=== PATIENT | female | born 1965 | race Caucasian/White ===

== ENCOUNTER → 2017-11-10 09:37 | Outpatient (CLI) | payer OTHER, SELFPAY ==
[2017-11-10 12:07] LABS: Glucose, Dipstick Normal (Normal); Ketone-Dipstick Negative (Negative); Leukocyte Esterase-Dipstick Negative /ul (Negative); Nitrite-Dipstick Negative (Negative); Occult Blood-Urine 10 /ul (Negative); Protein-Dipstick Negative (Negative); Urine Bilirubin Dipstick Negative (Negative); Urine Urobilinogen Normal (Normal); Urine pH 6.5 (5.0 - 8.0)
[2017-11-10 12:15] LABS: Color, Urine YELLOW (Yellow); Urine Clarity Clear (Clear)
[2017-11-10 12:19] LABS: Absolute Lymphocyte Count 1.34 X10^3/ul (0.83-4.51); Absolute Neutrophil Count 3.8 X10^3/uL (2.0-7.7); Basophil# 0.01 X10^3/uL; Basophil% 0.2 % (0-1); Eosinophil# 0.08 X10^3/uL; Eosinophils% 1.4 % (0-5); Hematocrit 40.6 % (37-47); Hemoglobin 14.2 g/dl (12.0-15.0); Lymphocyte # 1.34 X10^3/ul (4.0); Lymphocyte % 23.6 % (19-41); Mean Corpuscular Hgb 32.3 pg (27.0-32.0); Mean Corpuscular Volume 92.3 fL (81-99); Mean Platelet Vol. 10.5 fl (6.2-12.0); Monocyte# 0.48 X10^3/uL; Monocyte% 8.5 % (0-10); Neutrophil # 3.76 X10^3/uL (2.7-7.7); Neutrophil % 66.3 % (47-70); Platelet Count 275 K/mm3 (150-450); RBC Distribution Width CV 12.3 % (11.6-14.6); RBC Distribution Width SD 40.9 fl (35.1-43.9); White Blood Count 5.7 K/mm3 (4.4-11.0)
[2017-11-10 12:24] LABS: POSITIVE COUNT NO; POSITIVE DIFFERENTIAL NO; POSITIVE MORPHOLOGY NO
[2017-11-10 12:35] LABS: ALB/GLOB Ratio 1.2 RATIO (0.9-2.4); AST(SGOT) 18 U/L (15-37); Alanine Aminotransfer ALT/SGPT 45 U/L (13-56); Albumin, Serum 4.2 g/dL (3.2-5.0); Alkaline Phosphatase 61 U/L (45-117); Anion Gap 9 (5-15); BUN 13 mg/dL (7-18); BUN/Creat Ratio 13.8 RATIO (10-20); Chloride 104 mmol/L (98-107); Cholesterol 174 mg/dL (200); Creatinine, Serum 0.94 mg/dL (0.55-1.02); EST Glomerular Filtration Rate 66 mL/min (>60); Est Glom Filt Rate - Afr Amer 80 mL/min (>60); Globulin 3.4 g/dL (2.2-4.2); Glucose 88 mg/dL (74-106); High Density Lipoprotein 44 mg/dL; Potassium 3.8 mmol/L (3.5-5.1); Protein, Total 7.6 g/dL (6.4-8.2); Sodium Level 140 mmol/L (136-145); Triglycerides 123 mg/dL; Very Low Density Lipoprotein 25 mg/dL (5-40)
== END ==
PROVIDERS: Family Provider Family Medicine; PCP Family Medicine; Visit Provider Family Medicine
DX: Z00.00 Encounter for general adult medical examination without abnormal findings (principal); I10 Essential (primary) hypertension
CPT/HCPCS: 36415; 80053; 80061; 81002; 85025

== ENCOUNTER → 2018-10-01 11:53 | Outpatient (CLI) | payer OTHER, SELFPAY ==
--- NOTE | 2018-10-01 11:59 | RAD_ITS ---
HISTORY: CHRONIC PAIN, OLD INJURY COMPARISON: None FINDINGS: XR Sacrum/Coccyx 3 Views: No fracture or suspicious bony lesion. The SI joints appear preserved. Pelvic phleboliths. Probable tubal ligation clips. L4-5 degenerative disc disease and spondylosis. RAD/Sacrum-Coccyx min 2 Views IMPRESSION: 1. No fracture or suspicious bony lesion. 2. L4-5 degenerative disc disease and spondylosis. Comment: If there is chronic coccydynia and symptoms warrant, coccygeal pain may benefit from pain management consultation and ganglion impar sympathetic block could be performed. at 0254 Reported and signed by: Roberto Flores MD Electronically Signed: Roberto Flores, at 2:53 EST Tel , Service support ,
--- NOTE | 2018-10-01 11:59 | RAD_ITS ---
STUDY: X-RAY - PELVIS REASON FOR EXAM: Female, 53 years old. Pain TECHNIQUE: One view of the pelvis was obtained. COMPARISON: None. FINDINGS: There is a non-specific bowel gas pattern. Normal visualized soft tissue structures. Normal bilateral iliac wings, sacroiliac joints and visualized sacrum. Normal visualized bilateral superior and inferior pubic rami. Normal pubic symphysis. Normal ischial tuberosities. Normal visualized right femoral head. Normal right acetabulum. Normal right hip joint. Normal visualized left femoral head. Normal left acetabulum. Normal left hip joint. RAD/Pelvis 1 or 2 Views IMPRESSION: Normal x-ray examination of the pelvis. Electronically Signed: Francisco Mcgrath MD at 15:14 EST , Service support ,
== END ==
PROVIDERS: Family Provider Family Medicine; PCP Family Medicine; Referring Provider Anesthesiology Pain Medicine; Visit Provider Anesthesiology Pain Medicine
DX: M89.8X8 Other specified disorders of bone, other site (principal)
CPT/HCPCS: 72170; 72220

== ENCOUNTER 2018-12-15 15:45 | Emergency (ER) | payer OTHER, SELFPAY ==
[2018-12-15 15:45] VITALS: BP 125/83; PULSE 83; RESP 16; TEMP 36.2; O2SAT 99; BMI 24.3
--- NOTE | 2018-12-15 15:57 | CT_ITS ---
STUDY: CT ABDOMEN AND PELVIS WITH CONTRAST REASON FOR EXAM: Female, 53 years old. Right lower quadrant pain, recent UTI RADIATION DOSAGE (If Supplied By Facility): CTDIvol = ( 17.59 ) mGy, DLP = ( 772.76 ) mGycm TECHNIQUE: Transaxial images were obtained from the dome of the diaphragm to the symphysis pubis without oral contrast. 100ML IV Isovue 300 was administered. Sagittal and coronal images were reconstructed. Individualized dose optimization techniques were used for this CT. COMPARISON: None. FINDINGS: The visualized lung bases are unremarkable. The visualized portions of the heart are within normal limits. Normal liver. There are surgical clips in the gallbladder fossa consistent with a prior cholecystectomy. There is dilatation of the CBD measuring up to 9 mm. Normal spleen. Normal pancreas. Normal bilateral adrenal glands. Normal right kidney. Normal left kidney. There is wall thickening of the distal gastric body/antrum. There is wall thickening with mild dilatation of several loops of proximal jejunum. There is a large colonic stool burden. There is a tiny amount of free fluid in the right paracolic gutter. The appendix is visualized and appears normal. There are calcified plaques of the abdominal aorta. Normal inferior vena cava. Normal retroperitoneum. Normal urinary bladder. The uterus is bulky in size and heterogeneous in density. There is a small amount of free fluid in the deep pelvis. There is a small umbilical hernia containing fat. There is mild narrowing of the L4-5 disc space with sclerosis of the adjacent vertebral bodies. CT/Abdomen/Pelvis W IV Cont ONLY IMPRESSION: 1. Status post cholecystectomy. Dilatation of the CBD measuring up to 9 mm. 2. There is wall thickening of the distal gastric body/antrum as well as wall thickening and dilatation of several loops of proximal jejunum. Findings may represent gastritis/enteritis. 3. There is a small amount of free fluid in the right paracolic gutter and deep pelvis. 4. The uterus is bulky in size and heterogeneous in density. This may be associated with leiomyomatous disease. 5. Small fat-containing umbilical hernia. Mild narrowing of the L4-5 disc space with sclerosis of the adjacent vertebral bodies. Findings are suggestive of discogenic vertebral sclerosis. Electronically Signed: Ok Acevedo MD at 18:22 EDT , Service support ,
--- NOTE | 2018-12-15 16:01 | ED.VISSUMM ---
- ER Visit Summary Date of Service: 12/15/18 Chief Complaint: Abdominal pain History of Present Illness: The patient is a 53 F recently treated for a UTI currently on Cipro. Today she was in the urologist office being seen by the nurse practitioner they felt she had right lower quadrant abdominal pain and center the ER for further evaluation. She denies fever. She has had nausea. She states that the lower abdominal pain started last evening. She denies any vomiting, diarrhea, dysuria or melena. She denies any fever. She denies any abdominal trauma. She has had a prior cholecystectomy and tubal ligation. She denies any vaginal bleeding. Physical Examination: Middle-aged female no acute distress. Vital signs are stable. She is afebrile. She does not look septic or toxic. She is in no acute distress. HEENT exam unremarkable. Neck nontender no lymphadenopathy. Lungs clear to auscultation bilaterally. Heart regular rhythm no murmur. Abdomen soft. Nondistended. Normal bowel sounds no peritoneal signs. Mild tenderness both the left and right lower quadrants. No hernias or masses. No signs of obstruction. No pulsatile mass. She is tender on the right it is very mild is not specifically McBurney's point. Patient is moving all 4 extremities. Back is nontender. Neurologically she is awake and alert. Test Results: Normal. White count of 9. Normal hemoglobin. Chemistries normal normal creatinine and gap. Liver enzymes normal. Lipase normal. CT abdomen and pelvis with IV contrast only shows inflammation of the stomach and areas of the small bowel consistent with gastritis and enteritis. The appendix is seen and is normal. Emergency Department Course and Treatment: Middle-aged female with nonspecific diffuse abdominal pain. Given Zofran for her nausea. Repeat exam patient is doing well. She will be placed on Protonix. And outpatient follow-up. Treatment Plan: Protonix Disposition: Discharge Impression: Acute abdominal pain secondary to gastritis and enteritis This note was generated with [employer] dictation software. It may contain incorrect words, spelling, and punctuation that were not noted in review of the chart prior to signing ED Disposition - Plan for ED Patient: Referrals: Hood Aragon MD [Primary Care Provider] -
[2018-12-15 16:02] VITALS: BP 142/91; PULSE 79; RESP 16; O2SAT 98
--- NOTE | 2018-12-15 16:05 | ED.DCSUM_ITS ---
- ER Visit Summary Date of Service: 12/15/18 Chief Complaint: Abdominal pain History of Present Illness: The patient is a 53 F recently treated for a UTI currently on Cipro. Today she was in the urologist office being seen by the nurse practitioner they felt she had right lower quadrant abdominal pain and center the ER for further evaluation. She denies fever. She has had nausea. She states that the lower abdominal pain started last evening. She denies any vomiting, diarrhea, dysuria or melena. She denies any fever. She denies any abdominal trauma. She has had a prior cholecystectomy and tubal ligation. She denies any vaginal bleeding. Physical Examination: Middle-aged female no acute distress. Vital signs are stable. She is afebrile. She does not look septic or toxic. She is in no acute distress. HEENT exam unremarkable. Neck nontender no lymphadenopathy. L ungs clear to auscultation bilaterally. Heart regular rhythm no murmur. Abdomen soft. Nondistended. Normal bowel sounds no peritoneal signs. Mild tenderness both the left and right lower quadrants. No hernias or masses. No signs of obstruction. No pulsatile mass. She is tender on the right it is very mild is not specifically McBurney's point. Patient is moving all 4 extremities. Back is nontender. Neurologically she is awake and alert. Test Results: Normal. White count of 9. Normal hemoglobin. Chemistries normal normal creatinine and gap. Liver enzymes normal. Lipase normal. CT abdomen and pelvis with IV contrast only shows inflammation of the stomach and areas of the small bowel consistent with gastritis and enteritis. The appendix is seen and is normal. Emergency Department Course and Treatment: Middle-aged female with nonspecific diffuse abdominal pain. Given Zofran for her nausea. Repeat exam patient is doing well. She will be placed on Protonix. And outpatient follow-up. Treatment Plan: Protonix Disposition: Discharge Impression: Acute abdominal pain secondary to gastritis and enteritis This note was generated with [employer] dictation software. It may contain incorrect words, spelling, and punctuation that were not noted in review of the chart prior to signing ED Disposition - Plan for ED Patient: Referrals: Hood Aragon MD [Primary Care Provider] -
[2018-12-15] MEDS: Ondansetron 4 MG/2 ML Vial IV (16:13)
[2018-12-15 16:30] LABS: Absolute Lymphocyte Count 2.04 X10^3/ul (0.83-4.51); Absolute Neutrophil Count 6.9 X10^3/uL (2.0-7.7); Basophil# 0.02 X10^3/uL; Basophil% 0.2 % (0-1); Eosinophil# 0.04 X10^3/uL; Eosinophils% 0.4 % (0-5); Hematocrit 41.2 % (37-47); Lymphocyte # 2.04 X10^3/ul (4.0); Lymphocyte % 21.4 % (19-41); Mean Corpuscular Hgb 30.9 pg (27.0-32.0); Mean Corpuscular Volume 90.9 fL (81-99); Mean Platelet Vol. 9.8 fl (6.2-12.0); Monocyte# 0.48 X10^3/uL; Neutrophil # 6.93 X10^3/uL (2.7-7.7); Neutrophil % 72.9 % (47-70); Platelet Count 265 K/mm3 (150-450); RBC Distribution Width CV 13.8 % (11.6-14.6); RBC Distribution Width SD 45.2 fl (35.1-43.9); Red Blood Count 4.53 M/mm3 (4.2-5.4); White Blood Count 9.5 K/mm3 (4.4-11.0)
[2018-12-15 16:32] LABS: POSITIVE COUNT NO; POSITIVE DIFFERENTIAL NO; POSITIVE MORPHOLOGY NO
[2018-12-15 16:56] LABS: AST(SGOT) 16 U/L (15-37); Alanine Aminotransfer ALT/SGPT 21 U/L (13-56); Albumin, Serum 4.2 g/dL (3.2-5.0); Alkaline Phosphatase 51 U/L (45-117); Anion Gap 7 (5-15); BUN 13 mg/dL (7-18); BUN/Creat Ratio 13.3 RATIO (10-20); Bilirubin, Direct 0.09 mg/dL (0.00-0.30); Calcium,Total 8.9 mg/dL (8.5-10.1); Chloride 100 mmol/L (98-107); Creatinine, Serum 0.98 mg/dL (0.55-1.02); EST Glomerular Filtration Rate 63 mL/min (>60); Est Glom Filt Rate - Afr Amer 76 mL/min (>60); Estimated Creatinine Clearance 54.92 ml/min; Globulin 2.8 g/dL (2.2-4.2); Glucose 96 mg/dL (74-106); Lipase 90 U/L (73-393); Potassium 3.5 mmol/L (3.5-5.1); Sodium Level 136 mmol/L (136-145)
[2018-12-15] MEDS: Ketorolac 30 MG/ML Syringe IV (17:17)
[2018-12-15 17:28] LABS: Bacteria 0 SEEN /hpf (None Seen); Mucous, Urine 0 SEEN /hpf (<or=2+); Red Blood Cells-Urine 0 SEEN /hpf (0-5); White Blood Cells 0 SEEN /hpf (0-5)
[2018-12-15 17:34] LABS: Color, Urine Yellow (Yellow); Glucose, Dipstick Normal (Normal); Ketone-Dipstick Negative (Negative); Leukocyte Esterase-Dipstick Negative /ul (Negative); Nitrite-Dipstick Negative (Negative); Occult Blood-Urine Negative /ul (Negative); Protein-Dipstick Negative (Negative); Urine Bilirubin Dipstick Negative (Negative); Urine Clarity Clear (Clear); Urine Urobilinogen Normal (Normal)
[2018-12-15 17:40] LABS: Squamous Epithelial Cells - UA 0-5 SEEN /hpf (5-10)
[2018-12-15 18:08] VITALS: BP 124/84; PULSE 72; RESP 16; O2SAT 97
--- NOTE | 2018-12-15 18:36 | ED.DEP ---
ED Disposition - Plan for ED Patient: Disposition: Home or Assisted Living Instructions: ED Gastritis Prescriptions: Ondansetron [Zofran Odt] 4 mg PO Q8H PRN PRN #14 tab PRN Reason: Nausea Pantoprazole Sodium [Protonix] 20 mg PO DAILY #30 tablet Pantoprazole Sodium [Protonix] 20 mg PO DAILY #30 tab Referrals: Hood Aragon MD [Primary Care Provider] - 1 Week if not improving Additional Instructions: Her labs today were normal. Your CAT scan showed some mild inflammation of the stomach and small bowel consistent with a gastritis and enteritis. He will be placed on Protonix for the gastritis. This should progressively improve. Follow-up with your doctor if not improving.
--- NOTE | 2018-12-15 18:50 | ED.RN ---
IV DC'ED, CATHETER INTACT, SMALL GAUZE DRESSING PLACED. DISCHARGE INSTRUCTIONS GIVEN TO AND REVIEWED WITH PATIENT, PATIENT DENIES QUESTIONS OR CONCERNS AND VOICES UNDERSTANDING OF DISCHARGE INSTRUCTIONS. PT AMBULATES OUT OF ROOM WITHOUT DIFFICULTY.
== END 2018-12-15 18:50 | disposition home or self-care (01) ==
PROVIDERS: Emergency Provider Emergency Medicine; Family Provider Family Medicine; PCP Family Medicine
DX: K29.00 Acute gastritis without bleeding (principal); K52.9 Noninfective gastroenteritis and colitis, unspecified
CPT/HCPCS: 74177; 80048; 80076; 81001; 83690; 85025; 96374; 96375; 99283; Q9967; A4216; J2405

== ENCOUNTER → 2019-02-11 | Outpatient (CLI) | payer OTHER, SELFPAY ==
[2019-02-11 12:20] LABS: Color, Urine Yellow (Yellow); Glucose, Dipstick Normal (Normal); Ketone-Dipstick Negative (Negative); Leukocyte Esterase-Dipstick Negative /ul (Negative); Nitrite-Dipstick Negative (Negative); Occult Blood-Urine 250 /ul (Negative); Protein-Dipstick Negative (Negative); Urine Bilirubin Dipstick Negative (Negative); Urine Clarity Clear (Clear); Urine Urobilinogen Normal (Normal)
[2019-02-11 12:25] LABS: Absolute Lymphocyte Count 0.95 X10^3/ul (0.83-4.51); Absolute Neutrophil Count 2.6 X10^3/uL (2.0-7.7); Basophil# 0.01 X10^3/uL; Basophil% 0.3 % (0-1); Eosinophil# 0.08 X10^3/uL; Hematocrit 38.8 % (37-47); Hemoglobin 13.4 g/dl (12.0-15.0); Lymphocyte # 0.95 X10^3/ul (4.0); Mean Corp Hgb Conc 34.5 g/gl (32-36); Mean Corpuscular Hgb 30.5 pg (27.0-32.0); Mean Corpuscular Volume 88.4 fL (81-99); Mean Platelet Vol. 11.2 fl (6.2-12.0); Monocyte# 0.35 X10^3/uL; Monocyte% 8.8 % (0-10); Neutrophil # 2.57 X10^3/uL (2.7-7.7); Neutrophil % 64.9 % (47-70); Platelet Count 269 K/mm3 (150-450); RBC Distribution Width CV 12.2 % (11.6-14.6); RBC Distribution Width SD 38.6 fl (35.1-43.9); Red Blood Count 4.39 M/mm3 (4.2-5.4)
[2019-02-11 12:32] LABS: ALB/GLOB Ratio 1.3 RATIO (0.9-2.4); AST(SGOT) 17 U/L (15-37); Alanine Aminotransfer ALT/SGPT 25 U/L (13-56); Albumin, Serum 4.1 g/dL (3.2-5.0); Alkaline Phosphatase 53 U/L (45-117); Anion Gap 7 (5-15); BUN 15 mg/dL (7-18); BUN/Creat Ratio 16.3 RATIO (10-20); Calcium,Total 9.1 mg/dL (8.5-10.1); Chloride 102 mmol/L (98-107); Cholesterol 182 mg/dL (200); Creatinine, Serum 0.92 mg/dL (0.55-1.02); EST Glomerular Filtration Rate 68 mL/min (>60); Est Glom Filt Rate - Afr Amer 82 mL/min (>60); Globulin 3.1 g/dL (2.2-4.2); Glucose 91 mg/dL (74-106); High Density Lipoprotein 66 mg/dL; Potassium 3.8 mmol/L (3.5-5.1); Protein, Total 7.2 g/dL (6.4-8.2); Sodium Level 137 mmol/L (136-145); Triglycerides 53 mg/dL; Very Low Density Lipoprotein 11 mg/dL (5-40)
[2019-02-11 12:36] LABS: POSITIVE COUNT NO; POSITIVE DIFFERENTIAL NO; POSITIVE MORPHOLOGY NO
== END | disposition home or self-care (01) ==
LOC: MTLAB 10:22
PROVIDERS: Family Provider Family Medicine; PCP Family Medicine; Referring Provider Family Medicine; Visit Provider Family Medicine
DX: Z00.00 Encounter for general adult medical examination without abnormal findings (principal); I10 Essential (primary) hypertension
CPT/HCPCS: 36415; 80053; 80061; 81002; 85025

== ENCOUNTER 2019-08-09 12:36 | Emergency (ER) | payer OTHER, SELFPAY ==
[2019-08-09 12:38] VITALS: BP 137/97; PULSE 98; RESP 14; TEMP 36.4; O2SAT 100; BMI 24.7
--- NOTE | 2019-08-09 13:19 | US_ITS ---
STUDY: ULTRASOUND OF THE FEMALE PELVIS - COMPLETE REASON FOR EXAM: Female, 54 years old. Vaginal bleeding. LMP: The patient is postmenopausal. TECHNIQUE: Transvaginal TECHNICAL QUALITY: Adequate. COMPARISON: None. FINDINGS: The uterus is anteverted and is in a midline position. The uterus is enlarged and measures 10.17 x 6.6 x 6.0 cm. There is a Nabothian cyst of the cervix. The endometrium is thickened and measures 8.0 mm in thickness, and is hyperechoic. There is no demonstrated endometrial mass. Fibroid uterus. I.U.D. - The patient does not have an I.U.D. The right ovary is visualized. The right ovary measures 3.3 cm x 2.0 cm x 1.6 cm. There is no right ovarian cyst or ovarian mass. There is no visualized right adnexal mass or complex lesion. There is normal arterial and normal venous vascularity. The left ovary is visualized. The left ovary measures 4.2 cm x 2 cm x 1.8 cm. There is a 2.2 cm x 1.5 cm x 0.8 cm right ovarian cyst. There is no visualized left adnexal mass or complex lesion. There is normal arterial and normal venous vascularity. There is minimal fluid in the cul-de-sac. US/Transvaginal Non- IMPRESSION: Enlarged fibroid uterus with thickened endometrium. 2.2 cm x 1.5 cm x 0.8 cm left ovarian cyst. Electronically Signed: Alexis Sullivan, at 15:32 EST , Service support ,
[2019-08-09] MEDS: Morphine 4 MG/ML Syringe IV (13:48)
[2019-08-09] MEDS: 0.9% Normal Saline 1,000 ML 150 ML IV (13:49)
[2019-08-09] MEDS: Ondansetron 4 MG/2 ML Vial IV (13:49)
[2019-08-09 14:12] LABS: Absolute Lymphocyte Count 1.35 X10^3/uL (0.83-4.51); Absolute Neutrophil Count 4.9 X10^3/uL (2.0-7.7); Eosinophil# 0.07 X10^3/uL; Hematocrit 36.7 % (37-47); Hemoglobin 12.4 g/dL (12.0-15.0); Lymphocyte # 1.35 X10^3/ul (4.0); Lymphocyte % 19.9 % (19-41); Mean Corp Hgb Conc 33.8 g/dL (32-36); Mean Corpuscular Hgb 30.4 pg (27.0-32.0); Mean Platelet Vol. 9.8 fl (6.2-12.0); Monocyte# 0.44 X10^3/uL; Monocyte% 6.5 % (0-10); NRBC Flagged by Analyzer 0 % (0-5); Neutrophil # 4.92 X10^3/uL (2.7-7.7); Neutrophil % 72.3 % (47-70); Platelet Count 212 K/mm3 (150-450); RBC Distribution Width CV 14.1 % (11.6-14.6); Red Blood Count 4.08 M/mm3 (4.2-5.4); White Blood Count 6.8 K/mm3 (4.4-11.0)
[2019-08-09 14:15] LABS: Internal QC Validated? YES +Cl - CLEAR BKGD; Pregnancy, Serum, hCG Quali. NEGATIVE Negative
[2019-08-09 15:12] VITALS: BP 132/78; PULSE 70; RESP 16; O2SAT 98
--- NOTE | 2019-08-09 15:49 | ED.VIS.GEN ---
History of Present Illness Chief Complaint: Vag Bleeding Detail of Chief Complaint: Vaginal bleeding and left lower quadrant pain Informant: Patient Onset: Yesterday Current Severity: Moderate Maximum Severity: Moderate Narrative: Patient presents with vaginal bleeding and left lower quadrant pain. Patient states that she thinks she is going through menopause. Her last menstrual cycle was June 24. She started bleeding again yesterday. She noted more cramping than normal and worse pain in the left lower quadrant. She is a history of chronic back pain and takes [place] Feria. She took these yesterday and just laid on the couch. Today she did take her meds and went to work, but due to increased pain came to the emergency room. She does not feel lightheaded or dizzy. She states that she was changing her tampon every 1-2 hours. She is not passing large clots. - Past Medical History (1) Back pain Status: Acute Past Medical History - Allergies and Home Meds Allergies/Adverse Reactions: Allergies No Known Allergies Allergy (Verified 08/09/19 12:37) Primary Care Physician: Hood Aragon MD [Primary Care Provider] - Prior records reviewed: Yes Surgical History: cholecystectomy, - - Tubal ligation Lives: Spouse/ Significant Other Smoking Status: Never smoker Review of Systems General: Denies: Chills, Fever Eyes: Denies: Visual changes - bilaterally ENT: Denies: Bilateral ear pain Cardiovascular: Denies: Chest pain Respiratory: Denies: Dyspnea, Cough Gastrointestinal: Reports: Abdominal pain. Denies: Nausea, Vomiting, Diarrhea Genitourinary: Denies: Dysuria Musculoskeletal: Denies: Extremity Pain Skin: Denies: Rash Neurological: Denies: Headache Hematologic: Denies: Easy bruising Allergy: Denies: Uticaria Physical Exam Vital Signs/Narrative: Vital Signs Temp Pulse Resp BP Pulse Ox 08/09/19 15:12 70 16 132/78 H 98 08/09/19 12:38 97.6 F L 98 14 137/97 H 100 Inital Vital Signs reviewed: Yes General: Well nourished, Well developed Head: Normocephalic ENT: Moist mucous membranes Neck: Supple Cardiovascular: Regular rate, Regular rhythm Respiratory: No distress, CTA bilaterally Abdomen: Soft, Normal bowel sounds, Tender - Mild tenderness to the left lower quadrant.. Negative for: Guarding, Rebound tenderness Extremities: Nontender Skin: Normal color, No rash Neurological: Alert, Oriented x3 Psychological: Normal affect Diagnostic/Tx/Re-eval Impressions Transvaginal US 08/09/19 13:19 IMPRESSION: Enlarged fibroid uterus with thickened endometrium. 2.2 cm x 1.5 cm x 0.8 cm left ovarian cyst. Electronically Signed: Alexis Sullivan, at 15:32 EST , Service support , 08/09/19 13:19 Transvaginal Non- [US] Stat Laboratory Results 08/09/19 08/09/19 14:00 14:00 WBC 6.8 RBC 4.08 L Hgb 12.4 Hct 36.7 L MCV 90.0 MCH 30.4 MCHC 33.8 RDW Std Deviation 47.0 H RDW Coeff of Raulito 14.1 Plt Count 212 MPV 9.8 Immature Gran % (Auto) 0.300 Neut % (Auto) 72.3 H Lymph % (Auto) 19.9 [place] % (Auto) 6.5 Eos % (Auto) 1.0 Baso % (Auto) 0.0 Absolute Neuts (auto) 4.9 Absolute Lymphs (auto) 1.35 Nucleated RBC % 0 Serum , Qual NEGATIVE - Medical Decision Making Patient was given morphine and Zofran here for pain. Test results are discussed with patient and family at bedside. She is currently in pain management and is only allowed to take 2 [place] Feria per day. I spoke with nurse practitioner for her pain management doctor. They are okay with me writing her a short course of La Feria for her acute condition. She is given a prescription for La Feria and will follow up with her [employer], Dr. Kate. ED Disposition - Plan for ED Patient: Disposition: Home or Assisted Living Diagnosis: Ovarian cyst Instructions: Ovarian Cyst Prescriptions: Hydrocodone Bitart/Apap 5-325 [La Feria 5MG-325MG] 1 tab PO Q6H PRN PRN 3 Days #10 tab PRN Reason: Pain Transmission Status: Received by [facility] Referrals: Hood Aragon MD [Primary Care Provider] - Additional Instructions: Follow-up with Dr Kate
[2019-08-09 16:03] VITALS: BP 125/91; PULSE 65; RESP 18; O2SAT 99
== END 2019-08-09 16:04 | disposition home or self-care (01) ==
PROVIDERS: Emergency Provider Emergency Medicine; Family Provider Family Medicine; PCP Family Medicine
DX: N83.202 Unspecified ovarian cyst, left side (principal); D25.9 Leiomyoma of uterus, unspecified; M54.9 Dorsalgia, unspecified; G89.29 Other chronic pain
CPT/HCPCS: 76830; 84703; 85025; 96361; 96374; 96375; 99283; J2405

== ENCOUNTER 2020-03-11 16:09 | Emergency (ER) | payer OTHER, SELFPAY ==
[2020-03-11 16:10] VITALS: BP 171/114; PULSE 69; RESP 20; TEMP 36.1; O2SAT 100; BMI 26.2
--- NOTE | 2020-03-11 16:20 | ED.DCSUM_ITS ---
History of Present Illness Chief Complaint: Allergic Reaction Narrative: 55-year-old female presents with concern for allergic reaction. States that 2 nights ago she went to [facility] and had a Maykel spice. States following her dinner she had some hives. States that she ate the same meal last night as leftovers and woke up this morning with swelling to her face as well as throat. States that she feels like it is more superficial and does have any issue with swallowing or breathing. Denies any shortness of breath or cough. States that she was seen at urgent care this morning and started on Benadryl and steroids. States that the swelling has worsened since that time. Denies any previous significant history of food allergies. Past Medical History - Allergies and Home Meds Allergies/Adverse Reactions: Allergies No Known Allergies Allergy (Verified 03/11/20 16:14) Primary Care Physician: Hood Aragon MD [Primary Care Provider] - Prior records reviewed: Yes Past Medical History: None Surgical History: cholecystectomy, - - Tubal ligation Lives: Spouse/ Significant Other Smoking Status: Never smoker Alcohol: None Drugs: None Review of Systems General: Denies: Chills, Fever, Sweats Eyes: Denies: Visual changes - bilaterally, Diplopia ENT: Denies: Rhinorrhea, Sore throat - facial swelling Cardiovascular: Denies: Chest pain, Palpitations Respiratory: Denies: Dyspnea, Cough, Dyspnea on exertion Gastrointestinal: Denies: Abdominal pain, Nausea, Vomiting, Diarrhea, Melena, Hematochezia Genitourinary: Denies: Dysuria, Hematuria, Frequency Musculoskeletal: Denies: Back pain, Extremity Pain Skin: Denies: Rash, Wounds Neurological: Denies: Headache, Weakness, Numbness Physical Exam Vital Signs/Narrative: Vital Signs Temp Pulse Resp BP Pulse Ox 03/11/20 16:10 97 F L 69 20 H 171/114 H 100 Inital Vital Signs reviewed: Yes General: Well nourished, Well developed, No Acute Distress Head: Normocephalic, Atraumatic Eyes: Perrl, EOMI ENT: Moist mucous membranes, No rhinorrhea, - - Mild facial swelling to the cheeks and lips. No posterior pharyngeal swelling. Neck: Supple, Nontender Cardiovascular: Regular rate, Regular rhythm, No murmurs Respiratory: No distress, CTA bilaterally, Chest nontender Abdomen: Soft, Nontender, Nondistended, Normal bowel sounds Back: Nontender, Normal Inspection Extremities: Nontender, No edema Skin: Normal color, No rash Neurological: Alert, Oriented x3, Cranial nerves II-XII grossly intact, Normal Strength, Normal Sensation Psychological: Normal affect, Normal Mood Diagnostic/Tx/Re-eval - Medical Decision Making Appears well nontoxic. Very mild facial swelling. No posterior pharyngeal or intraoral swelling. Mild rash to the bilateral cheeks. Lungs clear. Patient was given 125 Solu-Medrol, 20 mg of IV Pepcid, and 25 mg of Benadryl. After observation for 2 hours patient does have improvement of her swelling. She will be advised to continue Benadryl as well as the Medrol Dosepak at home. Asked to return for any shortness of breath or throat swelling. Given prescription for epipen. Patient agreeable and discharged home in stable condition. ED Disposition - Plan for ED Patient: Disposition: [facility] or Unit Diagnosis: Allergic reaction Instructions: ED General Allergic Reactions Prescriptions: Epinephrine [Epipen] 0.3 mg IJ PRN PRN #2 auto.injct PRN Reason: Anaphylaxis Transmission Status: Pending to [facility] Referrals: Hood Aragon MD [Primary Care Provider] -
[2020-03-11] MEDS: MethylPREDNISolone 125 MG/2 ML Vial IV (16:32)
[2020-03-11] MEDS: Famotidine 200 MG/20 ML MDV 20 MG in 0.9% Normal Saline (Pres. free 8 ML 300 MG IV (16:33)
[2020-03-11] MEDS: DiphenhydrAMINE 50 MG/ML Syringe 25 MG IV (16:35)
[2020-03-11] MEDS: 0.9% Normal Saline 1,000 ML 999 ML IV (16:39)
[2020-03-11 16:40] VITALS: PULSE 98; RESP 16; O2SAT 97
[2020-03-11 19:10] VITALS: BP 168/78; PULSE 88; RESP 16; O2SAT 98
== END 2020-03-11 19:11 | disposition home or self-care (01) ==
PROVIDERS: Emergency Provider Emergency Medicine; PCP Family Medicine
DX: T78.1XXA Other adverse food reactions, not elsewhere classified, initial encounter (principal); X58.XXXA Exposure to other specified factors, initial encounter; R22.0 Localized swelling, mass and lump, head; Z79.899 Other long term (current) drug therapy; Z90.49 Acquired absence of other specified parts of digestive tract
CPT/HCPCS: 96361; 96374; 96375; 99283; J7030; A4216; J3490

== ENCOUNTER → 2020-03-22 10:57 | Outpatient (CLI) | payer OTHER, SELFPAY ==
[2020-03-11 16:10] VITALS: BMI 26.2
[2020-03-22 13:03] LABS: Color, Urine Yellow (Yellow); Glucose, Dipstick Normal (Normal); Ketone-Dipstick Negative (Negative); Leukocyte Esterase-Dipstick Negative /ul (Negative); Nitrite-Dipstick Negative (Negative); Occult Blood-Urine Negative /ul (Negative); Protein-Dipstick Negative (Negative); Specific Gravity, Urine 1.005 (1.002-1.030); Urine Bilirubin Dipstick Negative (Negative); Urine Clarity Sl. Cloudy (Clear); Urine Urobilinogen Normal (Normal); Urine pH 6.5 (5.0 - 8.0)
[2020-03-22 13:11] LABS: Absolute Lymphocyte Count 2.87 X10^3/uL (0.83-4.51); Absolute Neutrophil Count 5.7 X10^3/uL (2.0-7.7); Basophil# 0.03 X10^3/uL; Basophil% 0.3 % (0-1); Eosinophil# 0.04 X10^3/uL; Eosinophils% 0.4 % (0-5); Hematocrit 36.7 % (37-47); Hemoglobin 11.6 g/dL (12.0-15.0); Lymphocyte # 2.87 X10^3/ul (4.0); Lymphocyte % 30.2 % (19-41); Mean Corp Hgb Conc 31.6 g/dL (32-36); Mean Corpuscular Hgb 28.6 pg (27.0-32.0); Mean Corpuscular Volume 90.4 fL (81-99); Mean Platelet Vol. 9.9 fl (6.2-12.0); Monocyte# 0.88 X10^3/uL; Monocyte% 9.3 % (0-10); NRBC Flagged by Analyzer 0 % (0-5); Neutrophil # 5.65 X10^3/uL (2.7-7.7); Neutrophil % 59.4 % (47-70); Platelet Count 300 K/mm3 (150-450); RBC Distribution Width CV 13.3 % (11.6-14.6); RBC Distribution Width SD 43.4 fl (35.1-43.9); Red Blood Count 4.06 M/mm3 (4.2-5.4); White Blood Count 9.5 K/mm3 (4.4-11.0)
[2020-03-22 13:53] LABS: ALB/GLOB Ratio 1.3 RATIO (0.9-2.4); AST(SGOT) 8 U/L (15-37); Alanine Aminotransfer ALT/SGPT 18 U/L (13-56); Alkaline Phosphatase 40 U/L (45-117); Anion Gap 8 (5-15); BUN 13 mg/dL (7-18); BUN/Creat Ratio 14.3 RATIO (10-20); Calcium,Total 8.9 mg/dL (8.5-10.1); Chloride 99 mmol/L (98-107); Cholesterol 188 mg/dL (200); Creatinine, Serum 0.91 mg/dL (0.55-1.02); EST Glomerular Filtration Rate 68 mL/min (>60); Est Glom Filt Rate - Afr Amer 82 mL/min (>60); Glucose 88 mg/dL (74-106); High Density Lipoprotein 81 mg/dL; Potassium 3.8 mmol/L (3.5-5.1); Sodium Level 135 mmol/L (136-145); Triglycerides 91 mg/dL
[2020-03-22 13:54] LABS: Very Low Density Lipoprotein 18 mg/dL (5-40)
== END ==
PROVIDERS: PCP Family Medicine; Referring Provider Family Medicine; Visit Provider Family Medicine
DX: Z00.00 Encounter for general adult medical examination without abnormal findings (principal); I10 Essential (primary) hypertension
CPT/HCPCS: 36415; 80053; 80061; 81002; 85025

== ENCOUNTER → 2020-10-30 15:34 | Outpatient (CLI) | payer OTHER, SELFPAY ==
--- NOTE | 2020-10-30 15:39 | MRI_ITS ---
STUDY: MRI LUMBAR SPINE WITH AND WITHOUT CONTRAST REASON FOR EXAM: Female, 55 years old. POST LAMI SYNDROME, RADICULOPATHY, SPONDYLOSIS -- prev lumbar surgery 2006, recent left lumbar ablation TECHNIQUE: Standardized fat and water weighted pulse sequences were obtained in the sagittal and axial planes. IV dotarem 13ml was administered for the contrast portion of the examination. COMPARISON: Lumbar spine x-rays 09/12/2016 FINDINGS: T12-L1: Normal endplates. Normal disc height, hydration and morphology. Normal bilateral facet joints. Normal central canal and bilateral lateral recesses. Normal bilateral intervertebral neural foramina. Normal lumbar lordosis. There is no substantial scoliosis. Normal conus medullaris that terminates at T12-L1 L1-2: Normal endplates. Normal disc height, hydration and morphology. Normal bilateral facet joints. Normal central canal and bilateral lateral recesses. Normal bilateral intervertebral neural foramina. L2-3: Normal endplates. Normal disc height, hydration and minimal annular bulge. Normal bilateral facet joints. Normal central canal and bilateral lateral recesses. Normal bilateral intervertebral neural foramina. L3-4: Normal endplates. Normal disc height, hydration and morphology. Normal bilateral facet joints. Normal central canal and bilateral lateral recesses. Normal bilateral intervertebral neural foramina. L4-5: Normal endplates. Normal disc height, desiccation and minor annular bulge.. Mild facet arthropathy and thickening of ligamenta flava greater on the right. Normal central canal and bilateral lateral recesses. Mild left neuroforaminal stenosis and moderate stenosis on the right.. L5-S1: Normal endplates. Normal disc height, desiccation and minor annular bulge with tiny central disc protrusion. Minor facet arthropathy.. Normal central canal and bilateral lateral recesses. Normal bilateral intervertebral neural foramina. Normal visualized sacral ala. Normal visualized paraspinous soft tissue structures. No abnormal enhancement following gadolinium administration. MRI/Spine Lumbar W/WO Contrast IMPRESSION: Spinal stenosis at L4-5 slightly greater on the right due to minor bulging the annulus facet arthropathy and thickening of ligamenta flava more severe on the right Minor annular bulge at L5-S1 with tiny central disc protrusion and facet arthropathy but no significant spinal stenosis Electronically Signed: Everardo Yi MD at 17:17 EST , Service support ,
== END ==
PROVIDERS: PCP Family Medicine; Referring Provider Nurse Practitioner Family; Visit Provider Nurse Practitioner Family
DX: M46.96 Unspecified inflammatory spondylopathy, lumbar region (principal); M53.3 Sacrococcygeal disorders, not elsewhere classified; M51.37 Other intervertebral disc degeneration, lumbosacral region; M96.1 Postlaminectomy syndrome, not elsewhere classified; M47.27 Other spondylosis with radiculopathy, lumbosacral region
CPT/HCPCS: 72158; A9575

== ENCOUNTER 2021-04-12 11:53 | Emergency (ER) | payer OTHER, SELFPAY ==
[2021-04-12 11:54] VITALS: BP 167/100; PULSE 81; RESP 16; TEMP 36.6; O2SAT 100; BMI 25.5
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
[2021-04-12] MEDS: morphine 10 MG/ML Syringe IM (12:24)
[2021-04-12] MEDS: Ondansetron ODT 4 MG Tablet PO (12:24)
[2021-04-12 12:37] VITALS: BP 138/74; PULSE 62; RESP 15; O2SAT 98
== END 2021-04-12 12:38 | disposition home or self-care (01) ==
LOC: ED 12:35
PROVIDERS: Emergency Provider Emergency Medicine; PCP Family Medicine
DX: M54.9 Dorsalgia, unspecified (principal); G89.29 Other chronic pain; R20.0 Anesthesia of skin; M51.36 Other intervertebral disc degeneration, lumbar region; I10 Essential (primary) hypertension; Z79.1 Long term (current) use of non-steroidal anti-inflammatories (NSAID); Z79.52 Long term (current) use of systemic steroids; Z79.899 Other long term (current) drug therapy
CPT/HCPCS: 96372; 99283

== ENCOUNTER 2021-04-25 16:00 | Outpatient (RCR) | payer OTHER, SELFPAY ==
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
== END 2021-04-25 19:00 | disposition home or self-care (01) ==
LOC: PT 16:00
PROVIDERS: PCP Family Medicine; Referring Provider Orthopaedic Surgery; Visit Provider Orthopaedic Surgery
DX: M46.86 Other specified inflammatory spondylopathies, lumbar region (principal)
CPT/HCPCS: 97014; 97035; 97110; 97162; G0283

== ENCOUNTER → 2021-05-03 14:56 | Outpatient (CLI) | payer OTHER, SELFPAY ==
[2021-05-03 17:37] LABS: Absolute Lymphocyte Count 1.31 X10^3/uL (0.83-4.51); Absolute Neutrophil Count 3.1 X10^3/uL (2.0-7.7); Basophil# 0.01 X10^3/uL; Basophil% 0.2 % (0-1); Eosinophil# 0.02 X10^3/uL; Eosinophils% 0.4 % (0-5); Hematocrit 38.8 % (37-47); Hemoglobin 12.9 g/dL (12.0-15.0); Lymphocyte # 1.31 X10^3/ul (0.83-4.51); Lymphocyte % 26.7 % (19-41); Mean Corp Hgb Conc 33.2 g/dL (32-36); Mean Corpuscular Hgb 31.5 pg (27.0-32.0); Mean Corpuscular Volume 94.6 fL (81-99); Monocyte# 0.46 X10^3/uL; Monocyte% 9.4 % (0-10); NRBC Flagged by Analyzer 0 % (0-5); Neutrophil % 63.3 % (47-70); Platelet Count 251 K/mm3 (150-450); RBC Distribution Width CV 12.2 % (11.6-14.6); RBC Distribution Width SD 42.7 fl (35.1-43.9); White Blood Count 4.9 K/mm3 (4.4-11.0)
[2021-05-03 17:48] LABS: International Normalized Ratio 0.9; Prothrombin Time (Protime)PT. 11.5 SECONDS (11.7-14.9)
[2021-05-03 17:49] LABS: Partial Thromboplast Time 30.9 Seconds (24.1-36.2)
[2021-05-03 18:00] LABS: Anion Gap 4 (5-15); BUN 13 mg/dL (7-18); BUN/Creat Ratio 16.8 RATIO (10-20); Calcium,Total 9.2 mg/dL (8.5-10.1); Chloride 104 mmol/L (98-107); Creatinine, Serum 0.77 mg/dL (0.55-1.02); EST Glomerular Filtration Rate 82 mL/min (>60); Est Glom Filt Rate - Afr Amer 99 mL/min (>60); Glucose 60 mg/dL (74-106); Potassium 3.7 mmol/L (3.5-5.1); Sodium Level 139 mmol/L (136-145)
== END ==
PROVIDERS: PCP Family Medicine; Referring Provider Orthopaedic Surgery; Visit Provider Orthopaedic Surgery
DX: Z01.818 Encounter for other preprocedural examination (principal)
CPT/HCPCS: 36415; 80048; 85025; 85610; 85730

== ENCOUNTER 2021-09-12 10:00 | Outpatient (RCR) | payer OTHER, SELFPAY ==
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
--- NOTE | 2021-09-12 11:51 | HP.PTDCSUM ---
It has been my pleasure to treat HEIDE AMAYA referred by Dr. Everardo Dean DO, with the diagnosis of LUMBAR SPONDYLOSIS, STENOSIS AND INFLAMMATORY SPONDYLOPATHIES. for a total of 22 visit(s). Discharge Date: Please see the following information for a summary of their discharge status. Subjective: PATIENT REPORTS SHE IS DOING A LOT BETTER. STATES SHE IS GETTING STRONGER. STILL CAN'T SIT MORE THAN 30 MINUTES THOUGH. 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 FOLLOW UP PENDING WITH DR. DEAN NOVEMBER 12 2021. ON FOLLOW UP WITH DR. DEAN Aug SHE REPORTS HE SAID EVERYTHING LOOKS GOOD ON X-RAY. STATES SHE STARTED TO FEEL STRONGER IMMEDIATELY AFTER SURGERY. ABLE TO DO INDEP EX IN THE GYM NOW AND EVEN ADDED NEW EX'S FROM LAST VISIT LAST NIGHT. FEELS READY FOR DISCHARGE. LOW BACK Pain Intensity (Out of 10): 0 % Improvement: 70 Objective/Function: PATIENT WAS SEEN TODAY FOR RE-ASSESSMENT OF PROGRESS TOWARD THE SET PT GOALS AND THE NEED FOR FURTHER PHYSICAL THERAPY VS READINESS FOR DISCHARGE. ALL PT GOALS HAVE BEEN MET AND PATIENT IS INDEP IN BOTH LAND AND WATER EX PROGRAMS. SHE IS APPROPRIATE FOR DISCHARGE AND PATIENT IS AGREEABLE. UPON EXAM TODAY: Motor deficit: VON LE'S GROSSLY 5/5 WITH MMT'ING. Sensory deficit: VON LE LIGHT TOUCH SENSATION INTACT AND SYMMETRICAL. ROM deficit: TIGHT VON LE HS'S AND GASTROC SOLEUS COMPLEX'S. Dural Signs: NEGATIVE VON LE'S. Lumbar mvmt loss: flex - NIL. ext - MOD. R SG - MOD. L SG - MOD. Core strength: FAIR. 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 Goal 1:: DECREASE C/O LOW BACK AND RIGHT FOOT SX'S. Goal Progress: Goal Met Goal 2:: IMPROVE PERSONAL CARE, SITTING, STANDING, SOCIAL LIFE, TRAVEL AND WORK/HOMEMAKING FUNCTION Goal Progress: Goal Met Goal 3:: INSTRUCT IN PROPHYLAXIS Goal Progress: Goal Met Plan: D/C TO INDEP EX. PATIENT AGREEABLE. If there are questions or concerns regarding this patient's physical therapy, please feel free to call me at [phone]. Thank you for the referral of this patient. Sincerely, Rachel Roche, PT, Cert MDT Balance/Gait/Functional tests - Balance/Special Test Scores Oswestry Low Back Score: 15
== END 2021-09-12 19:00 | disposition home or self-care (01) ==
LOC: PT 10:00
PROVIDERS: PCP Family Medicine; Referring Provider Orthopaedic Surgery; Visit Provider Orthopaedic Surgery
DX: M48.061 Spinal stenosis, lumbar region without neurogenic claudication (principal); M46.86 Other specified inflammatory spondylopathies, lumbar region; M43.06 Spondylolysis, lumbar region
CPT/HCPCS: 97110; 97112; 97113; 97162; 97164; 97530

== ENCOUNTER → 2022-07-29 | Outpatient (CLI) | payer OTHER, SELFPAY ==
[2022-07-29 15:03] LABS: Absolute Lymphocyte Count 1.28 X10^3/uL (0.83-4.51); Absolute Neutrophil Count 3.8 X10^3/uL (2.0-7.7); Basophil# 0.01 X10^3/uL; Basophil% 0.2 % (0-1); Eosinophil# 0.01 X10^3/uL; Eosinophils% 0.2 % (0-5); Hemoglobin 13.1 g/dL (12.0-15.0); Lymphocyte # 1.28 X10^3/ul (0.83-4.51); Lymphocyte % 23.1 % (19-41); Mean Corp Hgb Conc 34.5 g/dL (32-36); Mean Corpuscular Volume 92.9 fL (81-99); Mean Platelet Vol. 9.6 fl (6.2-12.0); Monocyte# 0.39 X10^3/uL; Monocyte% 7.1 % (0-10); NRBC Flagged by Analyzer 0 % (0-5); Neutrophil # 3.82 X10^3/uL (2.7-7.7); Platelet Count 287 K/mm3 (150-450); RBC Distribution Width CV 11.9 % (11.6-14.6); RBC Distribution Width SD 40.3 fl (35.1-43.9); Red Blood Count 4.09 M/mm3 (4.2-5.4); White Blood Count 5.5 K/mm3 (4.4-11.0)
[2022-07-29 15:34] LABS: ALB/GLOB Ratio 1.4 RATIO (0.9-2.4); AST(SGOT) 24 U/L (15-37); Alanine Aminotransfer ALT/SGPT 74 U/L (13-56); Albumin, Serum 4.3 g/dL (3.2-5.0); Alkaline Phosphatase 77 U/L (45-117); Anion Gap 5 (5-15); BUN 18 mg/dL (7-18); BUN/Creat Ratio 21.5 RATIO (10-20); Calcium,Total 9.6 mg/dL (8.5-10.1); Chloride 100 mmol/L (98-107); Cholesterol 220 mg/dL (200); Creatinine, Serum 0.84 mg/dL (0.55-1.02); EST Glomerular Filtration Rate 75 mL/min (>60); Est Glom Filt Rate - Afr Amer 90 mL/min (>60); Globulin 3.1 g/dL (2.2-4.2); Glucose 97 mg/dL (74-106); High Density Lipoprotein 62 mg/dL; Potassium 3.6 mmol/L (3.5-5.1); Protein, Total 7.4 g/dL (6.4-8.2); Sodium Level 134 mmol/L (136-145); Thyroid Stim Hormone (TSH) 1.79 uIU/mL (0.358-3.74); Triglycerides 157 mg/dL; Very Low Density Lipoprotein 31 mg/dL (5-40)
[2022-07-29 15:40] LABS: Hemoglobin A1c 5.2 % (3.8-5.6)
== END | disposition home or self-care (01) ==
PROVIDERS: PCP Family Medicine; Referring Provider Family Medicine; Visit Provider Family Medicine
DX: Z00.00 Encounter for general adult medical examination without abnormal findings (principal)
CPT/HCPCS: 36415; 80053; 80061; 83036; 84443; 85025

== ENCOUNTER 2022-11-05 12:30 | Emergency (ER) | payer OTHER, SELFPAY ==
[2022-11-05] VITALS (8 sets, daily range): BP systolic 102–132; BP diastolic 63–99; PULSE 83–90; RESP 13–16; TEMP 36.8; O2SAT 93–97; BMI 26.9
--- NOTE | 2022-11-05 12:26 | EKG12_ITS ---
Test Reason : CP Blood Pressure : / mmHG Vent. Rate : 088 BPM Atrial Rate : 088 BPM P-R Int : 144 ms QRS Dur : 076 ms QT Int : 370 ms P-R-T Axes : 031 000 013 degrees QTc Int : 447 ms Normal sinus rhythm Normal ECG Confirmed by GRAHAM MARTINEZ, SHIVA ([id number]), health editor LAURA GODFREY ([id number]) on 11/07/2022 9:39:22 AM Referred By: SONG/HUNTER Confirmed By:SHIVA STEVENSON MD
--- NOTE | 2022-11-05 13:15 | RAD_ITS ---
STUDY: X-RAY CHEST REASON FOR EXAM: Female, 57 years old. Chest pain TECHNIQUE: Single AP portable view of the chest. COMPARISON: None. FINDINGS: EKG electrodes are seen. The lungs are clear and expanded. Scattered calcified granulomas. There is no demonstrated pleural abnormality. Normal size heart. Normal mediastinum and jie. Normal visualized pulmonary arteries. Normal visualized aortic arch and descending thoracic aorta. Normal visualized thoracic spine. Normal visualized ribs, clavicles, and shoulders. Prior cholecystectomy. RAD/Chest 1 View (Portable) IMPRESSION: Scattered calcified granulomas. Electronically Signed: Alexis Sullivan MD at 13:46 EST ,
[2022-11-05 13:19] LABS: Absolute Lymphocyte Count 1.25 X10^3/uL (0.83-4.51); Absolute Neutrophil Count 5.5 X10^3/uL (2.0-7.7); Basophil# 0.02 X10^3/uL; Basophil% 0.3 % (0-1); Hematocrit 43.2 % (37-47); Hemoglobin 15.4 g/dL (12.0-15.0); Lymphocyte # 1.25 X10^3/ul (0.83-4.51); Lymphocyte % 17.4 % (19-41); Mean Corp Hgb Conc 35.6 g/dL (32-36); Mean Corpuscular Hgb 32.5 pg (27.0-32.0); Mean Corpuscular Volume 91.1 fL (81-99); Monocyte# 0.44 X10^3/uL; Monocyte% 6.1 % (0-10); NRBC Flagged by Analyzer 0 % (0-5); Neutrophil # 5.48 X10^3/uL (2.7-7.7); Neutrophil % 76.1 % (47-70); Platelet Count 327 K/mm3 (150-450); RBC Distribution Width CV 11.7 % (11.6-14.6); RBC Distribution Width SD 39.2 fl (35.1-43.9); Red Blood Count 4.74 M/mm3 (4.2-5.4); White Blood Count 7.2 K/mm3 (4.4-11.0)
[2022-11-05 13:34] LABS: Anion Gap 9 (5-15); BUN 13 mg/dL (7-18); BUN/Creat Ratio 15.2 RATIO (10-20); Calcium,Total 10.6 mg/dL (8.5-10.1); Chloride 92 mmol/L (98-107); Creatinine, Serum 0.86 mg/dL (0.55-1.02); EST Glomerular Filtration Rate 72 mL/min (>60); Est Glom Filt Rate - Afr Amer 88 mL/min (>60); Glucose 98 mg/dL (74-106); Potassium 3.6 mmol/L (3.5-5.1); Sodium Level 130 mmol/L (136-145); Troponin-I HS (w/2H Reflex) 4 pg/mL (3.0-54.0)
[2022-11-05] MEDS: Nitroglycerin SL (ED/IMG/CATH) 0.4 MG TABLET SL ×3 (13:41→13:51)
[2022-11-05] MEDS: HYDROcodone Bitartrate/Apap 5/325 Tablet PO (14:40)
[2022-11-05 15:13] LABS: Reflex Troponin-HS? (from REC) Y
--- NOTE | 2022-11-05 15:51 | ED.VIS.CHEST ---
HPI History of Present Illness Chief Complaint: Chest Pain Informant: patient Onset/Context/Timing Onset: Yesterday Activity at onset: gradual Timing: Intermittent Quality: Positive for Heaviness and Pressure Location: Substernal Worsened By: Breathing Relieved By: Nothing Associated Symptoms: Positive for Dyspnea, Cough and Fever; Negative for Nausea, Vomiting, Diaphoresis, Lightheadedness, Acid Reflux or Palpitations Narrative Narrative: Patient presents with chest pain that began yesterday. Patient states it gradually came on. Patient states it has been intermittent since yesterday. Patient describes it as heaviness and pressure. Patient states it is over the substernal area. Patient had a recent bronchitis and thinks this is due to that. Patient states her pain is worse with breathing. Patient admits to a cough and subjective fever. Patient denies any nausea or vomiting. Patient denies any palpitations or lightheadedness. Patient denies any PE risk factors. Patient states she does have a family history of her mother who had coronary artery disease in her 50s. Patient also admits to history of hypertension. CVD Risk Factors: Positive for Hypertension and Family History 1' </=55; Negative for Diabetes, Hypercholesterolemia or Smoking PE Risk Factors: Negative for Recent Travel/Surgery, Recent Immobilization, Prior DVT or PE, Cancer or OCP + Smoking + >/=35 [facility] Medical History Chronic pain Hx of ovarian cyst Hypertension Home Medications alprazolam 0.5 mg tablet,extended release 24 hr 0.5 mg PO TID PRN PRN ANXIETY/SLEEP 08/09/19 [History Last Taken Unknown] celecoxib 200 mg capsule 200 mg PO DAILY 08/09/19 [History Last Taken Unknown] hydrocodone-acetaminophen 5-325mg 5mg-325mg 1 tab PO Q6H PRN Pain/Inflammation 08/09/19 [History Last Taken Unknown] lisinopril 20 mg-hydrochlorothiazide 12.5 mg tablet 2 tab PO DAILY 08/09/19 [History Last Taken Unknown] epinephrine 0.3 mg/0.3 mL injection, auto-injector 0.3 mg (0.3 mL) IJ PRN PRN Anaphylaxis ##2 03/11/20 [Rx Last Taken Unknown] cyclobenzaprine 10 mg tablet 5 - 10 mg PO QHS 04/12/21 [History Last Taken Unknown] methylprednisolone 4 mg tablets in a dose pack mg 04/12/21 [History Last Taken Unknown] benzonatate 100 mg capsule 100 mg PO Q6H PRN cough #20 caps 11/05/22 [Rx Last Taken Unknown] Allergy/AdvReac Type Severity Reaction Status Date / Time No Known Allergies Allergy Verified 11/05/22 12:30 Surgical History H/O tubal ligation History of cholecystectomy Social History Smoking Status: Never smoker ROS ROS ED Constitutional Constitutional ED: Reports fever(s) and subjective; Denies chills Eyes Eyes: Denies blurry vision or change in vision ENT ENT ED: Reports sore throat; Denies rhinorrhea Cardiovascular Cardiovascular: Reports chest pain; Denies palpitations Respiratory/Chest Respiratory/Chest: Reports cough and dyspnea Gastrointestinal Gastrointestinal: Denies abdominal pain, nausea or vomiting Genitourinary Genitourinary ED: Denies dysuria or hematuria Musculoskeletal Musculoskeletal: Denies back pain or neck pain Integumentary Denies abscess or rash Neurologic Neurologic: Denies headache(s) or weakness Allergic/Immunologic Allergic/Immunologic ED: Denies mouth swelling or urticaria EXAM Physical Exam Const Vital Signs: 11/05/22 12:31 11/05/22 12:34 11/05/22 13:07 Temperature 98.2 F Temperature Source Oral Pulse Rate 85 Respiratory Rate 16 Respiratory Effort Normal Non-Labored Blood Pressure 130/86 H Blood Pressure Mean 100 Pulse Ox 97 97 Oxygen Delivery Method Room Air Room Air 11/05/22 13:41 11/05/22 13:46 11/05/22 13:51 Temperature Temperature Source Pulse Rate 87 90 90 Respiratory Rate Respiratory Effort Blood Pressure 128/63 H 124/94 H 121/78 H Blood Pressure Mean Pulse Ox Oxygen Delivery Method 11/05/22 13:52 11/05/22 13:56 Temperature Temperature Source Pulse Rate 87 90 Respiratory Rate 13 Respiratory Effort Blood Pressure 121/78 H 102/71 Blood Pressure Mean 92 81 Pulse Ox 93 Oxygen Delivery Method Room Air Positive well nourished and well developed General Appearance ED: well developed and NAD HEENT normocephalic and atraumatic Eyes PERRL and EOMs intact bilaterally Neck supple and no JVD Chest Wall palpation of chest normal Resp normal respiratory effort and clear to auscultation bilaterally Effort and Inspection: Negative for respiratory distress Cardio regular rate, regular rhythm and no murmurs GI normal to inspection, nondistended, normoactive bowel sounds, soft to palpation, non-tender and non-distended Extremity normal to inspection General Extremety ED: Negative for edema or tenderness General Extremity: Negative for edema Neuro oriented x3, CN's II-XII intact bilaterally and no sensory deficits noted Sensorium / Orientation: awake and alert Motor Exam: strength 5/5 throughout Psych mental status grossly normal Heart Score History: Slightly/Non-Suspicious ECG: Normal Age: >45 - <65 years Risk Factors: 1 or 2 Risk Factors Troponin: </= Normal Limit Score: 2 MDM MDM MDM Narrative Medical decision making narrative: Gnosis includes cardiac dysrhythmia, cardiac ischemia, pneumonia, pneumothorax, musculoskeletal chest pain, esophagitis, gastroesophageal reflux disease, viral bronchitis, and other viral infection. Patient is PERC negative and has no PE risk factors. Because of this, I do not feel pulmonary is present differential diagnosis. EKG will be obtained to assess for cardiac dysrhythmia and cardiac ischemia. Chest x-ray will be obtained to assess for pneumonia, pneumothorax, congestive heart failure. CBC will be obtained to assess for leukocytosis and anemia. Basic metabolic profile will be obtained to assess for electrolyte abnormality and renal function. High-sensitivity troponin will be obtained to assess for cardiac ischemia. 2-hour repeat high-sensitivity troponin will be obtained to assess for ongoing cardiac ischemia. Lab Data Attestation: I reviewed the patient's lab results. Lab results narrative: CBC was reviewed and was within normal limits. Basic metabolic profile was reviewed. There is a mild hyponatremia of 130 and hypochloremia of 92. This was otherwise within normal limits. Initial high-sensitivity troponin was normal at 4. 2-hour repeat high-sensitivity troponin was also normal at 4. Labs: Laboratory Results - last 24 hr 11/05/22 11/05/22 11/05/22 12:10 12:10 15:18 WBC 7.2 RBC 4.74 Hgb 15.4 H Hct 43.2 MCV 91.1 MCH 32.5 H MCHC 35.6 RDW Std Deviation 39.2 RDW Coeff of Raulito 11.7 Plt Count 327 MPV 9.0 Immature Gran % (Auto) 0.100 Neut % (Auto) 76.1 H Lymph % (Auto) 17.4 L Mcculloch % (Auto) 6.1 Eos % (Auto) 0.0 Baso % (Auto) 0.3 Absolute Neuts (auto) 5.5 Absolute Lymphs (auto) 1.25 Nucleated RBC % 0 Sodium 130 L Potassium 3.6 Chloride 92 L Carbon Dioxide 29.0 Anion Gap 9 BUN 13 Creatinine 0.86 Estim Creat Clear Calc 59.70 Est GFR (MDRD) Af Amer 88 Est GFR (MDRD) Non-Af 72 BUN/Creatinine Ratio 15.2 Glucose 98 Calcium 10.6 H Troponin I High Sens 4 4 Radiography Diagnostic Testing: Clinical Impression(s) from Imaging Studies Chest X-Ray 11/05/22 13:15 IMPRESSION: Scattered calcified granulomas. Electronically Signed: Alexis Sullivan MD at 13:46 EST , Portable 1 view chest x-ray was obtained. On my independent interpretation, lung chan show scattered calcified granulomas. There is normal cardiac silhouette. Bony thorax is normal. There is no acute process noted. Radiologist also interpreted the x-ray and agrees. EKG Initial EKG: Attestation: I personally reviewed and interpreted this EKG as follows: Interpretation: Sinus Rhythm (88) and No Acute Injury Pattern Comments: EKG was obtained. On my independent interpretation, it showed a normal sinus rhythm with a rate of 88. ID interval, QRS interval, and QTc intervals were all normal. [place] was normal. There are no acute ST or T wave changes. Prior EKG tracings: not available for review Prior: No Prior Treatment and Re-Evaluation Narrative: Patient was feeling better on reevaluation. Patient was advised of her findings. Patient has a HEART score of 2. Patient was advised that this is low risk for acute cardiac event. Patient was instructed to follow-up with her primary care physician in 5 to 7 days. Patient was given a prescription for Tessalon. Patient was instructed to return if worse in any way. Patient understood and was agreeable with the plan. All questions were answered. Discharge Plan Triage Chief Complaint: Chest Pain ED Provider: Carlos Uribe Dx/Rx/DC Orders Clinical Impression: Chest pain, Viral bronchitis Instructions: ED Bronchitis, No Antibiotic (Adult) Prescriptions: New benzonatate 100 mg capsule 100 mg PO Q6H PRN (Reason: cough) Qty: 20 0RF No Action celecoxib 200 MG capsule 200 mg PO DAILY lisinopril-hydrochlorothiazide 1 EACH tablet 2 tab PO DAILY hydrocodone-acetaminophen 1 EACH tablet 1 tab PO Q6H PRN (Reason: Pain/Inflammation) Label Comments: take 1/2 to 1 tablet by mouth twice a day if needed for pain alprazolam 0.5 MG tablet 0.5 mg PO TID PRN PRN (Reason: ANXIETY/SLEEP) epinephrine 0.3 MG/0.3 ML auto-injector 0.3 mg IJ PRN PRN (Reason: Anaphylaxis) Qty: 2 0RF cyclobenzaprine 10 mg tablet 5 - 10 mg PO QHS Label Comments: take 1/2 to 1 tablet by mouth at bedtime if needed methylprednisolone 4 mg tablets,dose pack Primary Care Provider: Hood Aragon Referrals: Hood Aragon MD [Primary Care Provider] - 5-7 Days Disposition Disposition: Home, Self Care
[2022-11-05 16:32] LABS: Troponin-I HS 4 pg/mL (3.0-54.0)
== END 2022-11-05 17:02 | disposition home or self-care (01) ==
PROVIDERS: Emergency Provider Emergency Medicine; PCP Family Medicine; Visit Provider Emergency Medicine
DX: J20.8 Acute bronchitis due to other specified organisms (principal); I10 Essential (primary) hypertension
CPT/HCPCS: 71045; 80048; 84484; 85025; 93005; 99285; A4216

== ENCOUNTER → 2025-02-26 | Outpatient (CLI) | payer OTHER, SELFPAY ==
--- OUTSIDE RECORDS SUMMARY | 2025-02-26 10:28 | XMS RPT_ITS | CCD ---
Author Organization [facility] Inform ion Partnership [facility] Care Team Providers Care Sample Paster Name Role Phone IVETTE WYATT Unavailable Unavailable IVETTE WYATT Unavailable Unavailable Ernesto MARTINEZ, Omaira Barroso Unavailable Hood Medina MD Primary Care Provider Hood Medina MD Primary Care Provider Hood Medina MD Primary Care Provider Cedric MARTINEZ, [facility] Primary Care Provider UnavailANTHONY Caballero Attending Unava ilable DOC, [facility] Referring Unavailable DOC, [facility] Primary Care Unavailable Hood Medina MD Primary Care Provider Hood Medina MD Primary Care Provider [facility] Unavailable Jun Aranda MD Unavailable HOOD MEDINA Primary Care UnavailHood Liz MD Primary Care Provider Harmeet Ruiz Referring Unavailable Harmeet Ruiz Attending Unavailable Hood Medina Primary Care Unavailable HOOD MEDINA Attending Unavailab HOOD Jeffers Primary Care Unavailab HOOD Jeffers Attending UnavailHOOD Liz Primary Care Unavailab karlo Allergies Allergy Classification Reported Allergen(s) Allergy Type Date of Onset Reaction(s) Facility (20 sources) Mold Extract; Translations: [MOLD] Drug Allergy 8 Unknown [facility] Work Phone: (1 source) PLANT POLLENS; Translations: [PLANT POLLENS] allergy to substance 8 hay fever [facility] Work Phone: (20 sources) Pollen; Translations: [POLLEN EXTRACTS] Drug Allergy 8 Other: See Comments, Unknown [facility] Medications Current Medications Medication Drug Class(es) Dates Sig (Normalized) Sig (Original) acetaminophen 325 mg / HYDROcodone bitartrate 5 mg oral tablet (20 sources) Opioid Agonist Start: 03-09-2020 take 0.5-1 tablets by mouth twice daily for pain HYDROcodone-aceta minophen (NORCO) 5-325 mg per tablet take 1/2 to 1 tablet by mouth twice a day if needed for pain 03/09/2020 Active Start: 08-09-2019 End: 08-25-2019 take 1 tablet by mouth every six hours as needed Hydrocodone-Acetaminophen Discontinued 1 TABLET PO EVERY 6 HOURS NEEDED 10 3 August 09, 2019 August 25, 2019 12:08am Comment on above: take 1/2 to 1 tablet by mouth twice a day if needed for pain ALPRAZolam 0.5 mg oral tablet (20 sources) Benzodiazepine Start: End: take 1 tablet by mouth every eight hours as needed for anxiety and anxiety ALPRAZolam (XANAX) 0.5 mg tablet Indications: Anxiety Take 1 tablet by mouth three times a day as needed for anxiety for up to 90 days. 90 tablet 2 12/28/2024 03/28/2025 Active Start: 09-15-2024 End: 12-14-2024 take 1 tablet by mouth every eight hours as needed for anxiety and anxiety ALPRAZolam (XANAX) 0.5 mg tablet Indications: Anxiety Take 1 tablet by mouth three times a day as needed for anxiety for up to 90 days. 90 tablet 2 09/15/2024 12/14/2024 Active Start: 09-13-2024 End: 10-13-2024 take 1 tablet by mouth every eight hours as needed for anxiety and anxiety ALPRAZolam (XANAX) 0.5 mg tablet Indications: Anxiety Take 1 tablet by mouth every 8 hours as needed for up to 30 days. 30 tablet 2 09/13/2024 10/13/2024 Active Start: 12-16-2023 End: 09-12-2024 take 1 tablet by mouth every eight hours as needed for anxiety and anxiety ALPRAZolam (XANAX) 0.5 mg tablet Indications: Anxiety Take 1 tablet by mouth three times a day as needed for up to 90 days. 90 tablet 2 06/14/2024 09/12/2024 Active Start: 01-16-2023 End: 12-06-2023 take 1 tablet by mouth every eight hours as needed for anxiety and anxiety ALPRAZolam (XANAX) 0.5 mg tablet Indications: Anxiety Take 1 tablet by mouth three times a day as needed for up to 90 days. 90 tablet 2 07/09/2023 09/07/2023 Discontinued Start: 05-15-2022 End: 01-06-2023 take 1 tablet by mouth three times daily as needed for anxiety ALPRAZolam (XANAX) 0.5 mg tablet Indications: Anxiety TAKE 1 TABLET BY MOUTH THREE TIMES A DAY NEEDED FOR ANXIETY 90 tablet 1 11/07/2022 01/06/2023 Active Start: 03-08-2022 End: 04-07-2022 take 1 tablet by mouth every eight hours as needed for anxiety and anxiety ALPRAZolam (XANAX) 0.5 mg tablet Indications: Anxiety Take 1 tablet by mouth every 8 hours as needed for up to 30 days. 30 tablet 2 03/08/2022 04/07/2022 Active Start: 03-01-2020 End: 03-06-2022 take 1 tablet by mouth every eight hours as needed ALPRAZolam (XANAX) 0.5 mg tablet Take 0.5 mg by mouth every 8 hours as needed. 0 03/01/2020 03/06/2022 Discontinued Start: 08-09-2019 take 0.5 mg by mouth three times daily as needed Alprazolam Active 0.5 MG PO 3 TIMES DAILY NEEDED August 09, 2019 2:52pm Start: 06-18-2018 End: 08-14-2022 take 1 tablet by mouth every twenty-four hours ALPRAZolam ER (XANAX XR) 0.5 mg 24 hr tablet Take 0.5 mg by mouth. 0 06/18/2018 08/14/2022 Discontinued (Duplicate Entry) Start: 06-18-2018 End: 08-05-2022 take 1 tablet by mouth once daily ALPRAZolam (XANAX) 0.5 mg tablet Indications: Anxiety Take 1 tablet by mouth once daily for 90 days. 30 tablet 2 05/07/2022 05/15/2022 Discontinued Comment on above: Take 1 tablet by kristie th every 8 hours as needed for up to 30 days. Take 0.5 mg by mouth every 8 hours as needed. Take 1 tablet by kristie th once daily for 90 days. Take 1 tablet by kristie th once daily. Take 1 tablet by kristie th three times daily as needed for anxiety for up to 90 days. Take 0.5 mg by mouth . TAKE 1 TABLET BY KRISTIE TH THREE TIMES A DAY NEEDED FOR ANXIETY take 1 tablet by kristie th three times a day if needed for anxiety Take 1 tablet by kristie th three times daily as needed for up to 90 days. Take 1 tablet by kristie th three times a day as needed for up to 90 days. amitriptyline hydrochloride 50 mg oral tablet (20 sources) Tricyclic Antidepressant Start: 08-11-20 End: 08-11-20 take 1 tablet by mouth once daily at bedtime amitriptyline (ELAVIL) 50 mg tablet Take 1 tablet by mouth daily at bedtime. 90 tablet 3 08/11/2024 08/11/2025 Active Start: 09-03-2023 End: 08-11-2024 take 1 tablet by mouth once daily at bedtime amitriptyline (ELAVIL) 25 mg tablet Take 25 mg by mouth daily at bedtime. 09/03/2023 08/11/2024 Discontinued Start: 03-01-2020 End: 07-09-2023 take 1 tablet by mouth once daily at bedtime amitriptyline (ELAVIL) 25 mg tablet Take 25 mg by mouth daily at bedtime. 0 03/01/2020 07/09/2023 Discontinued Comment on above: Take 25 mg by mouth daily at bedtime. benzonatate 100 mg oral capsule (1 source) Non-narcotic Antitussive Start: take 100 mg by mouth every six hours Benzonatate Active 100 MG PO EVERY 6 HOURS November 05, 2022 12:00am [id number] 0.3 ml EPINEPHrine 1 mg/ml auto-injector (20 sources) alpha-Adrenergic Agonist, beta-Adrenergic Agonist, Catecholamine Start: 0 Epinephrine Active 0.3 MG IJ NEEDED March 11, 2020 5:23pm Start: 03-11-2020 EPINEPHrine (E PIPEN) 0.3 mg/0.3 mL auto-injector Epinephrine Active 0.3 MG IJ NEEDED March 11, 2020 5:23pm 03/11/2020 Active Comment on above: Epinephrine Active 0 .3 MG IJ NEEDED March 11, 2020 5:23pm hydroCHLOROthiazide 12.5 mg / lisinopril 20 mg oral tablet (20 sources) Thiazide Diuretic, Angiotensin Converting Enzyme Inhibitor Start: 01-30-20 End: 02-24-20 take 2 tablets by mouth once daily lisinopril-hydr oCHLOROthiazide (ZESTORETIC) 20-12.5 mg per tablet Take 2 tablets by mouth once daily. 180 tablet 3 02/23/2025 Active Start: 12-27-2019 End: 01-29-2024 take 2 tablets by mouth once daily lisinopril-hydroCHLOROthiazide (ZESTORET IC) 20-12.5 mg per tablet take 2 tablets by mouth once daily 180 tablet 3 02/04/2023 01/29/2024 Discontinued Start: 08-09-2019 take 2 tablets by mouth once daily Lisinopril-Hydrochlorothiazide Active 2 TABLET PO DAILY August 09, 2019 2:52pm Comment on above: Take 2 tablets by [facility] once daily. take 2 tablets by [facility] once daily sulfamethoxazole 800 mg / trimethoprim 160 mg oral tablet (1 source) Dihydrofolate Reductase Inhibitor Antibacterial, Sulfonamide Antimicrobial Start: 3 take 1 tablet by mouth twice daily sulfamethoxazo le-trimethopri m (BACTRIM DS) 800-160 MG per tablet Take 1 Tablet (160 mg) by mouth 2 times daily 10 Tablet 0 11/29/2022 Active SUTAB 1.479-0.188- 0.225 gram tab (8 sources) Start: 4 SUTAB 1.479-0.188- 0.225 gram tab Take 1 tablet by mouth. 11/11/2023 Active Start: 11-11-2023 SUTAB 1.479-0. 188- 0.225 gram tab Take 1 tablet by mouth. 0 11/11/2023 Active tiZANidine 4 mg oral tablet (10 sources) Central alpha-2 Adrenergic Agonist Start: 09-03-2023 take 1 tablet by mouth every eight hours as needed tiZANidine (ZANAFLEX) 4 mg tablet Take 4 mg by mouth three times a day as needed. 09/03/2023 Active Comment on above: Take 4 mg by mouth t hree times a day as needed. Completed/Discontinued Medications Medication Drug Class(es) Dates Sig (Normalized) Sig (Original) amLODIPine 5 mg oral tablet (20 sources) Dihydropyridine Calcium Channel Nina Start: 07-09-2023 End: 02-23-2025 take 1 tablet by mouth once daily amLODIPine (NORVASC) 5 mg tablet Take 1 tablet by mouth once daily. 90 tablet 3 02/18/2024 02/23/2025 Discontinued Start: 11-13-2022 End: 11-13-2023 take 1 tablet by mouth once daily amLODIPine (NORVASC) 2.5 mg tablet Take 1 tablet by mouth once daily. 90 tablet 3 11/13/2022 07/09/2023 Discontinued Comment on above: Take 1 tablet by kristie once daily. celecoxib 200 mg oral capsule (10 sources) Nonsteroidal Anti-inflammatory Drug Start: End: celecoxib (CELEBREX) 200 mg capsule Take 200 mg by mouth. 0 03/01/2020 11/13/2022 Discontinued Comment on above: Take 200 mg by mouth . cyclobenzaprine hydrochloride 10 mg oral tablet (17 sources) Muscle Relaxant Start: End: take 1 tablet by mouth every eight hours as needed cyclobenzaprine (FLEXERIL) 10 mg tablet Take 10 mg by mouth three times daily as needed. 0 04/09/2022 07/09/2023 Discontinued End: 05-15-2022 take 1 tablet by mouth every eight hours as needed cyclobenzaprine (FLEXERIL) 5 mg tablet Take 5 mg by mouth three times daily as needed. 0 05/15/2022 Discontinued (Course of therapy completed) Comment on above: Take 5 mg by mouth t hree times daily as needed. Take 10 mg by mouth three times daily as needed. lisinopril 20 mg oral tablet (5 sources) Angiotensin Converting Enzyme Inhibitor Start: 06-18-2018 LISINOPRIL 20 MG TABS take 1 tablet twice daily LISINOPRIL [id number] Lupis Locopura GOMEZ End: 05-15-2022 take 1 tablet by mouth once daily Comment on above: Take 2.5 mg by mouth once daily. UNKNOWN DOSE methylPREDNISolone (6 sources) Corticosteroid Start: 06-03-2023 End: 07-09-2023 methylPREDNISolone (MEDROL DOSE-PACK) 4 mg Dose-Pack Start: 11-08-2022 methylPREDNISo lone (MEDROL) 4 MG Dose-Elliott (21 EACH) take as directed 21 Tablet 0 11/08/2022 Active Start: 03-06-2022 End: 05-15-2022 methylPREDNISolone (MEDROL D OSE-PACK) 4 mg Dose-Pack TAKE 6 TABLETS ON DAY 1 DIRECTED ON PACKAGE AND DECREASE BY 1 TAB EACH DAY FOR A TOTAL OF 6 DAYS 0 03/06/2022 05/15/2022 Discontinued (Course of therapy completed) Start: 03-06-2022 methylPREDNISo lone (MEDROL DOSE-PACK) 4 mg Dose-Pack TAKE 6 TABLETS ON DAY 1 DIRECTED ON PACKAGE AND DECREASE BY 1 TAB EACH DAY FOR A TOTAL OF 6 DAYS 0 03/06/2022 Active Start: 04-12-2021 Methylpredniso lone Active MG April 12, 2021 12:15pm Start: 04-12-2021 Methylpredniso lone Active MG April 11, 2021 11:00pm Comment on above: TAKE 6 TABLETS ON DA Y 1 DIRECTED ON PACKAGE AND DECREASE BY 1 TAB EACH DAY FOR A TOTAL OF 6 DAYS sertraline 100 mg oral tablet (9 sources) Serotonin Reuptake Inhibitor Start: 05-15-2022 End: 05-15-2023 take 1 tablet by mouth once daily sertraline (ZOLOFT) 100 mg tablet Take 1 tablet by mouth once daily. 90 tablet 3 05/15/2022 11/13/2022 Discontinued Start: 03-01-2020 End: 05-15-2022 take 1 tablet by mouth once daily sertraline (ZOLOFT) 50 mg tablet Take 50 mg by mouth once daily. 0 03/01/2020 05/15/2022 Discontinued Start: 03-01-2020 take 0.5 tablet by m outh once daily, then take 1 tablet by mouth once daily sertraline (ZOLOFT) 50 mg tablet take 1/2 tablet by mouth once daily for 6 days then INCREASE TO 1 once daily 0 03/01/2020 Active Comment on above: take 1/2 tablet by m outh once daily for 6 days then INCREASE TO 1 once daily Take 1 tablet by kristie th once daily. Take 50 mg by mouth once daily. traMADol hydrochloride 50 mg oral tablet (9 sources) Opioid Agonist Start: 06-18-2018 TRAMADOL HCL 50 MG TABS take 1 tablet three times daily TRAMADOL HCL [id number] Lupis Alonso GRADUATE STUDENT End: 11-13-2022 take 1 tablet by mouth every six hours as needed traMADol (ULTRAM) 50 mg tablet Take 50 mg by mouth every 6 hours as needed for Pain. 0 11/13/2022 Discontinued Comment on above: Take 50 mg by mouth every 6 hours as needed for Pain. Problems Active Problems Problem Classification Problem Date Documented Date Episodic/Chronic Acute bronchitis (1 source) Viral bronchitis; Translations: [Acute bronchitis due to other specified organisms] 11-05-2022 Episodic Anxiety disorders (20 sources) Anxiety; Translations: [Anxiety disorder, unspecified] Onset: 03-27-2017 Chronic Diabetes mellitus without complication (5 sources) Type 2 diabetes mellitus; Translations: [Type 2 diabetes mellitus without complications] Onset: 05-15-2022 Chronic Disorders of lipid metabolism (20 sources) Mixed hyperlipidemia; Translations: [Mixed hyperlipidemia] Onset: 05-15-2022 Chronic Esophageal disorders (20 sources) Gastroesophageal reflux disease; Translations: [Gastro-esophageal reflux disease without esophagitis] Onset: 07-12-2019 05-14-2022 Chronic Essential hypertension (20 sources) Hypertensive disorder; Translations: [Essential (primary) hypertension] Onset: 03-27-2017 05-14-2022 Chronic Miscellaneous mental health disorders (1 source) Primary insomnia; Translations: [Primary insomnia] 08-11-2024 Chronic Mood disorders (20 sources) Depressive disorder; Translations: [Depression] Onset: 04-03-2020 05-14-2022 Chronic Nonspecific chest pain (1 source) Chest pain; Translations: [Chest pain, unspecified] 11-05-2022 Episodic Other nervous system disorders (1 source) Chronic pain syndrome; Translations: [Chronic pain syndrome] 02-23-2025 Chronic Ovarian cyst (2 sources) Cyst of ovary; Translations: [Unspecified ovarian cyst, unspecified side] 08-10-2019 Episodic Spondylosis; intervertebral disc disorders; other back problems (20 sources) Lumbar spondylosis; Translations: [Spondylosis without myelopathy or radiculopathy, lumbar region] Onset: 08-06-2018 08-06-2018 Chronic Thyroid disorders (20 sources) Acquired hypothyroidism; Translations: [Hypothyroidism, unspecified] Onset: 05-15-2022 Chronic Unclassified (1 source) Unknown / UNK(Unknown) Onset: 09-16-2017 Unclassified (1 source) LOS WITHIN PROCEDURE CODE [V9000 (ICD-9-CM)] 05-30-2023 Unclassified (1 source) 6 Month Exam Onset: 02-23-2025 Past or Other Problems Problem Classification Problem Date Documented Da te Episodic/Chronic Abdominal pain (20 sources) Right lower quadrant pain; Translations: [Right lower quadrant pain] Onset: 10-23-2020 05-14-2022 Episodic Allergic reactions (20 sources) Allergic reaction; Translations: [Allergy, unspecified, initial encounter] Onset: 03-13-2020 05-14-2022 Episodic Conditions associated with dizziness or vertigo (20 sources) Benign paroxysmal positional vertigo; Translations: [Benign paroxysmal vertigo, unspecified ear] Onset: 05-27-2019 05-14-2022 Episodic Other nervous system disorders (20 sources) Trigeminal neuralgia; Translations: [Trigeminal neuralgia] Onset: 03-27-2017 05-14-2022 Episodic Other screening for suspected conditions (not mental disorders or infectious disease) (20 sources) Patient encounter status; Translations: [Encounter for screening for diseases of the blood and blood-forming organs and certain disorders involving the immune mechanism] Onset: 10-20-2017 Episodic Residual codes; unclassified (20 sources) Unspecified problems with limbs and other problems; Translations: [Problem] Onset: 05-14-2022 05-14-2022 Episodic Spondylosis; intervertebral disc disorders; other back problems (20 sources) Pain in the coccyx; Translations: [Backache] Onset: 07-22-2018 08-06-2018 Episodic Syncope (20 sources) Syncope and collapse; Translations: [Syncope and collapse] Onset: 09-16-2017 05-14-2022 Episodic Unclassified (1 source) Problem Urinary tract infections (20 sources) Urinary tract infectious disease; Translations: [Urinary tract infection, site not specified] Onset: 02-16-2019 05-14-2022 Episodic Results Test Name Value Interpretation Reference Range Facility [facility] 02-23-2025 CNOV Office Visit (FAMMAS ) -------- HEIDE COMER ([id number]) 1965 F Date Time Provider Department 02/23/25 11:00 AM HOOD MEDINA During your visit today, we recorded the following information about you: Temperature Pulse Respiration Blood pressure 96.9 degrees 80/minute 18/minute 132/82 Weight Height 64.9 kg 1.6 m Joleen Ulloa LPN 02/23/2025 11:48 AM Signed Patient is in office for 6 month exam. Patient has no current complaints or concerns. Patient states she has not been taking her amlodipine. Joleen Ulloa LPN February 23, 2025 11:11 AM Hood Medina MD 02/23/2025 11:48 AM Signed Subjective Mel Comer is a 59-year-old female with a history of HTN, presenting for management of back pain and medication refills. 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 - Scheduled for an MRI on Friday. - Experiences nocturnal numbness. - Believes stress contributes to the pain. - Taking Tylenol for pain management; cautious about dosage due to concerns about liver health. Hypertension: - Taking lisinopril-hydrochloroth iazide 20 mg/25 mg, 2 tablets every morning. - Discontinued amlodipine due to hypotension and fatigue; last BP reading was 100/60 mmHg. - Medication refills sent to [facility]. Review of Systems GENERAL: No weight loss, malaise, or fevers. HEENT: Negative for frequent or significant headaches, no changes in vision or hearing, no epistaxis or other nasal problems. NECK: Negative for lumps, goiter, pain, and significant neck swelling. RESPIRATORY: Negative for cough, dyspnea, or shortness of breath. CARDIOVASCULAR: Negative for chest pain, leg swelling, CHF, or palpitations. GI: No nausea, vomiting, diarrhea, heartburn, abdominal pain, hematochezia, or melena. GENITOURINARY: No history of dysuria, frequency, or incontinence. MUSCULOSKELETAL: Positive for back pain; negative for joint pain, swelling, or myalgia. SKIN: Negative for lesions, rash, or itching. PSYCH: Negative for anxiety or depression. HEMATOLOGY/LYMPHOLOGY: No bleeding concerns. NEURO: Positive for numbness; negative for headaches, syncope, paralysis, seizures, or tremors. ENDOCRINE: No history of polydipsia, increased thirst, or other endocrine symptoms. PAST SURGICAL HISTORY Procedure Laterality Date BACK SURGERY HX 2006 CHOLECYSTECTOMY 09/08/2002 LIG/TRNSXJ FLP TUBE ABDL/VAG APPR UNI/BI LIGATE FALLOPIAN TUBE PAST SURGICAL HISTORY OF ear tube placement PAST MEDICAL HISTORY Diagnosis Date Anxiety state Cervical dysplasia HTN (hypertension) PMH - PAST MEDICAL HISTORY OF fibrocystic breasts Trigeminal neuralgia FAMILY HISTORY Problem Relation Age of Onset Hypertension Mother Colon Cancer Mother Breast Cancer Maternal Grandmother Cancer Paternal Grandfather lung Diabetes Maternal Uncle x 2 Social History Tobacco Use Smoking status: Never Smokeless tobacco: Never Vaping Use Vaping status: Never Used Substance Use Topics Alcohol use: Yes Comment: occassionally Drug use: No ALLERGIES Allergen Reactions Mold Unknown Pollen Extracts Unknown MEDICATIONS: ALPRAZolam (XANAX) 0.5 mg tablet Take 1 tablet by mouth three times a day as needed for anxiety for up to 90 days. amitriptyline (ELAVIL) 50 mg tablet Take 1 tablet by mouth daily at bedtime. SUTAB 1.479-0.188- 0.225 gram tab Take 1 tablet by mouth. tiZANidine (ZANAFLEX) 4 mg tablet Take 4 mg by mouth three times a day as needed. EPINEPHrine (EPIPEN) 0.3 mg/0.3 mL auto-injector Epinephrine Active 0.3 MG IJ NEEDED March 11, 2020 5:23pm HYDROcodone-acetaminophe n (NORCO) 5-325 mg per tablet take 1/2 to 1 tablet by mouth twice a day if needed for pain lisinopril-hydroCHLOROth iazide (ZESTORETIC) 20-12.5 mg per tablet Take 2 tablets by mouth once daily. Allergies, past surgical history, family history and past medical history were reviewed per this encounter. Medications were reviewed and verified. 08/11/2024 02/16/2025 INTAKE PAIN ASSESSMENT Are you having pain associated with your visit today? No No If pain assessment is 0, no action needed. If pain assessment is positive, please see assessment and plain. Objective Labs: - Liver function tests: Mildly elevated enzymes (no date provided) BP 132/82 (BP Site: Left Arm, BP Position: Sitting, BP Cuff Size: Regular Adult) Pulse 80 Temp 36.1 ?C (96.9 ?F) (Temporal) Resp 18 Ht 160 cm (5' 3) Wt 64.9 kg (143 lb) LMP (LMP Unknown) SpO2 99% BMI 25.33 kg/m? Physical Exam GENERAL: NAD, alert and oriented. SKIN: Unremarkable, no rash or skin lesions. HEAD: Normocephalic. EYES: PERRLA, EOMI, conjunctiva clear. EARS: External ears normal, canals clear, TM's normal. NOSE/SINUSES: Nares normal. Septum midline. OROPHARYNX: Lips, mucosa, and tongue normal, good den (more content not included)... [facility] Office Visit (KATHYAS ) -------- HEIDE COMER ([id number]) 1965 F Date Time Provider Department 08/11/24 1:50 PM HOOD MEDINA During your visit today, we recorded the following information about you: Temperature Pulse Respiration Blood pressure 97.6 degrees 84/minute 18/minute 116/84 Weight Height 66.2 kg 1.6 m Joleen Ulloa LPN 08/11/2024 3:11 PM Signed [facility] [employer] Hepatitis C Screening declined HIV Screening declined BP Controlled (<130/80) DTaP,Tdap,Td Vaccine(1 - Tdap) declined Lipid Screening Cervical Cancer Screening [facility] Shingrix Vaccine(1 of 2) March scheduled Diabetes Screening Influenza Vaccine(1) [facility] Covid-19 Vaccine( season) declined Mammogram Screening [facility] Patient has been taking Amlodipine as needed for BP No refills needed. Joleen Ulloa LPN August 11, 2024 1:48 PM Hood Medina MD 08/11/2024 3:11 PM Signed Subjective Heide Comer is a 59 year old female. Heide presents today for her annual wellness visit. Additionally she follows up for multiple medical problems. See list. Her chronic medical problems are stable. Her blood pressure is under good control on her current regimen. Mood and anxiety been stable. She has not been sleeping well on amitriptyline 25 mg. Review of Systems Constitutional: Negative. HENT: Negative. Eyes: Negative. Respiratory: Negative. Cardiovascular: Negative. Gastrointestinal: Negative. Endocrine: Negative. Genitourinary: Negative. Musculoskeletal: Negative. Skin: Negative. Allergic/Immunologic: Negative. Neurological: Negative. Hematological: Negative. Psychiatric/Behavioral: Negative. PAST SURGICAL HISTORY Procedure Laterality Date BACK SURGERY HX 2006 CHOLECYSTECTOMY 09/08/2002 LIG/TRNSXJ FLP TUBE ABDL/VAG APPR UNI/BI LIGATE FALLOPIAN TUBE PAST SURGICAL HISTORY OF ear tube placement PAST MEDICAL HISTORY Diagnosis Date Anxiety state Cervical dysplasia HTN (hypertension) PMH - PAST MEDICAL HISTORY OF fibrocystic breasts Trigeminal neuralgia FAMILY HISTORY Problem Relation Age of Onset Hypertension Mother Colon Cancer Mother Breast Cancer Maternal Grandmother Cancer Paternal Grandfather lung Diabetes Maternal Uncle x 2 Social History Tobacco Use Smoking status: Never Smokeless tobacco: Never Vaping Use Vaping status: Never Used Substance Use Topics Alcohol use: Yes Comment: occassionally Drug use: No ALLERGIES Allergen Reactions Mold Unknown Pollen Extracts Unknown MEDICATIONS: ALPRAZolam (XANAX) 0.5 mg tablet Take 1 tablet by mouth three times a day as needed for up to 90 days. SUTAB 1.479-0.188- 0.225 gram tab Take 1 tablet by mouth. amLODIPine (NORVASC) 5 mg tablet Take 1 tablet by mouth once daily. lisinopril-hydroCHLOROth iazide (ZESTORETIC) 20-12.5 mg per tablet Take 2 tablets by mouth once daily. amitriptyline (ELAVIL) 25 mg tablet Take 25 mg by mouth daily at bedtime. tiZANidine (ZANAFLEX) 4 mg tablet Take 4 mg by mouth three times a day as needed. EPINEPHrine (EPIPEN) 0.3 mg/0.3 mL auto-injector Epinephrine Active 0.3 MG IJ NEEDED 2 March 11, 2020 5:23pm HYDROcodone-acetaminophe n (NORCO) 5-325 mg per tablet take 1/2 to 1 tablet by mouth twice a day if needed for pain Allergies, past surgical history, family history and past medical history were reviewed per this encounter. Medications were reviewed and verified. 02/18/2024 08/11/2024 INTAKE PAIN ASSESSMENT Are you having pain associated with your visit today? No No If pain assessment is 0, no action needed. If pain assessment is positive, please see assessment and plain. Objective BP 116/84 (BP Site: Left Arm, BP Position: Sitting, BP Cuff Size: Regular Adult) Pulse 84 Temp 36.4 ?C (97.6 ?F) (Temporal) Resp 18 Ht 160 cm (5' 3) Wt 66.2 kg (146 lb) LMP (LMP Unknown) SpO2 99% BMI 25.86 kg/m? Physical Exam Vitals reviewed. Constitutional: Appearance: Normal appearance. HENT: Head: Normocephalic and atraumatic. Nose: Nose normal. Eyes: Extraocular Movements: Extraocular movements intact. Pupils: Pupils are equal, round, and reactive to light. Cardiovascular: Rate and Rhythm: Normal rate and regular rhythm. Pulmonary: Effort: Pulmonary effort is normal. Breath sounds: Normal breath sounds. Abdominal: General: Bowel sounds are normal. Palpations: Abdomen is soft. Musculoskeletal: General: Normal range of motion. Cervical back: Normal range of motion and neck supple. Skin: General: Skin is warm and dry. Capillary Refill: Capillary refill takes less than 2 seconds. Neurological: General: No focal deficit present. Mental Status: She is alert and oriented to person, place, and time. Mental status is at baseline. Psychiatric: Mood and Affect: Mood norm (more content not included)... [facility] Bacteria Ur Culton 3 Bacteria identified Cx Nom (U) CULTURE, URINE: No growth (<1,000 CFU/ml) Normal [facility] Comment on above: Performed By: #### 6 30-4 #### [facility] CLIA [id number] [address] [place] [address] [place] [address] [place] CNOVon 06-03-2023 CNOV Office Visit (UCWSTR ) -------- HEIDE COMER ([id number]) 1965 F Date Time Provider Department 06/03/23 5:00 PM KAREN BERKOWITZ [facility] During your visit today, we recorded the following information about you: Temperature Pulse Respiration Blood pressure 98.2 degrees 92/minute 18/minute 160/98 Weight 62 kg Karen Berkowitz APRN.GEM EXPERT 06/03/2023 5:19 PM Signed CC: Patient presents with: Flu Like Symptoms: St, SOB, fever and legs aches-exposed to COVID x 1 day HPI: Heide Comer is a 58 year old female who presents to the office with complaint of head congestion, cough, nonproductive, sore throat, and fever for the past day. Symptoms are staying the same. Associated symptoms includes body aches. Denies nausea, vomiting , and diarrhea. Treatments tried include nothing so far. with no relief of symptoms. Sick contacts: unknown. History of asthma, frequent episodes of bronchitis, chronic bronchitis, bronchiectasis or COPD: No Smoker: No Seasonal/environmental allergies: No The ROS is otherwise negative. The patient's pmh, medications, allergies, and past visits are reviewed. PHYSICAL EXAM: BP 160/98 Pulse 92 Temp 36.8 ?C (98.2 ?F) (Tympanic) Resp 18 Wt 62 kg (136 lb 9.6 oz) LMP (LMP Unknown) SpO2 99% BMI 24.20 kg/m? General appearance: alert, cooperative, pleasant, in no acute distress Head: Normocephalic Eyes: EOM's intact, conjunctiva pink and moist, no icterus, sclera white, non-injected Ears: Right ear: External ear/canal- Normal, TM - clear with good landmarks. Left ear: External ear/canal- Normal, TM - clear with good landmarks Oropharynx:moist without lesions, No erythema, exudates or tonsillar hypertrophy. Heart: Negative. RRR without obvious murmur, gallop, or rubs. No ectopy. Lungs: clear to auscultation, without rales or wheeze, good air exchange PAST MEDICAL HISTORY Diagnosis Date Anxiety state Cervical dysplasia HTN (hypertension) PMH - PAST MEDICAL HISTORY OF fibrocystic breasts Trigeminal neuralgia PAST SURGICAL HISTORY Procedure Laterality Date BACK SURGERY HX 2006 CHOLECYSTECTOMY 09/08/2002 LIG/TRNSXJ FLP TUBE ABDL/VAG APPR UNI/BI LIGATE FALLOPIAN TUBE PAST SURGICAL HISTORY OF ear tube placement ALLERGIES Mold and Pollen Extracts MEDICATIONS ALPRAZolam (XANAX) 0.5 mg tablet Take 1 tablet by mouth three times daily as needed for up to 90 days. lisinopril-hydroCHLOROth iazide (ZESTORETIC) 20-12.5 mg per tablet take 2 tablets by mouth once daily EPINEPHrine (EPIPEN) 0.3 mg/0.3 mL auto-injector Epinephrine Active 0.3 MG IJ NEEDED March 11, 2020 5:23pm amLODIPine (NORVASC) 2.5 mg tablet Take 1 tablet by mouth once daily. cyclobenzaprine (FLEXERIL) 10 mg tablet Take 10 mg by mouth three times daily as needed. amitriptyline (ELAVIL) 25 mg tablet Take 25 mg by mouth daily at bedtime. HYDROcodone-acetaminophe n (NORCO) 5-325 mg per tablet take 1/2 to 1 tablet by mouth twice a day if needed for pain methylPREDNISolone (MEDROL DOSE-PACK) 4 mg Dose-Pack FAMILY HISTORY Problem Relation Age of Onset Hypertension Mother Colon Cancer Mother Breast Cancer Maternal Grandmother Cancer Paternal Grandfather lung Diabetes Maternal Uncle x 2 Social History Tobacco Use Smoking status: Never Smokeless tobacco: Never Vaping Use Vaping Use: Never used Substance Use Topics Alcohol use: Yes Comment: occassionally Drug use: No ASSESSMENT/PLAN: 1. URI, acute - ICD9: 465.9, ICD10: J06.9 - COVID AND INFLUENZA A/B AND RSV NAAT, ROUTINE OTC medication for symptom managment. Potential red flag symptoms discussed with the patient. Reviewed appropriate action plan to take if red flag symptoms occur. Patient agreeable to treatment plan. Karen Berkowitz APRN.GEM EXPERT Allergies As of Date: 06/03/2023 Noted Allergy Reaction MOLD 06/18/2018 16 - Unknown POLLEN EXTRACTS 06/18/2018 14 - Other: See Comments Date Reviewed: 06/03/2023 Reviewed by: Tammy Sears LPN - Fully Assessed Reason for Visit: Flu Like Symptoms [267] Cmt: St, SOB, fever and legs aches-exposed to COVID x 1 day Primary Visit Diagnosis:URI, acute [J06.9] Order(s):COVID AND INFLUENZA A/B AND RSV NAAT, ROUTINE [SQCVFLRS] Order #: [id number] FUTURE COVID AND INFLUENZA A/B AND RSV NAAT, ROUTINE [SQCVFLRS] Order #: [id number]. #:[id number] COVID NAAT, UPPER RESPIRATORY, ROUTINE [SQCOVID] Reflex Order#: [id number] (Ord#:[id number])Spec. #:[id number] ROUTINE FLU A/B + RSV [SQRTFRSV] Reflex Order#: [id number] (Ord#:[id number])Spec. #:[id number] Prescriptions as of 06/03/2023 - methylPREDNISolone (MEDROL DOSE-PACK) 4 mg Dose-Pack - ALPRAZolam (XANAX) 0.5 mg tablet Take 1 tablet by mouth three times daily as needed for up to 90 days. - lisinopril-hydroCHLOROth iazide (ZESTORETIC) 20-12.5 mg per tablet take 2 tablets by mouth once daily (more content not included)... Normal [facility] ROUTINE FLU A/B + RSVon 05-10 FLUAV RNA TONI+probe Ql (Unsp spec) Not detected Normal Not Detected [facility] Comment on above: Order Comment: Speci men Type: SWAB OF INTERNAL NOSE Ordering Facility: [facility] Address: [address] [place] [address] Performed By: #### 9 4500-6, RTFRSV #### [facility] [place] [id number] [address] [place] [address] [place] FLUBV RNA TONI+probe Ql (Unsp spec) Not detected Normal Not Detected [facility] Comment on above: Order Comment: Speci men Type: SWAB OF INTERNAL NOSE Ordering Facility: [facility] Address: [address] [place] [address] Performed By: #### 9 4500-6, RTFRSV #### [facility] [place] [id number] [address] [place] [address] [place] RSV A RNA TONI+probe Ql (Unsp spec) Not detected Normal Not Detected [facility] Comment on above: Order Comment: Speci men Type: SWAB OF INTERNAL NOSE Ordering Facility: [facility] Address: [address] [place] [address] Performed By: #### 9 4500-6, RTFRSV #### [facility] [place] [id number] [address] [place] [address] [place] SARS-CoV-2 RNA Resp Ql TONI+p robeon 06-03-2023 SARS-CoV-2 (COVID-19) RNA TONI+probe Ql (Resp) COVID 19 RESULT: Detected The method used is RT-PCR or an equivalent NAAT method. Reference Range (the expected result in uninfected individuals): Not detected Normal [facility] Comment on above: Performed By: #### 9 4500-6, RTFRSV #### [facility] [place] [id number] [address] [place] [address] [place] Absolute lymphocyte countOrd ered By: Dr. Uribe on 11-05-2022 Lymphocytes Auto (Unsp spec) [#/Vol] 1.25 10*3/uL 0.83-4.51 [facility] Basophil percentageOrdered B y: Dr. Uribe on 11-05-2022 Basophils/100 WBC (Bld) 0.3 % 0-1 [facility] Chloride [Moles/Vol] 92 mmol/L 98-107 [facility] Eosinophils/100 WBC (Bld) 0.0 % 0-5 [facility] Glucose [Mass/Vol] 98 mg/dL 74-106 [facility] Neutrophils (Bld) [#/Vol] 5.5 10*3/uL 2.0-7.7 [facility] Neutrophils/100 WBC (Bld) 76.1 % 47-70 [facility] Potassium [Moles/Vol] 3.6 mmol/L 3.5-5.1 [facility] Sodium [Moles/Vol] 130 mmol/L 136-145 [facility] WBC (Bld) [#/Vol] 7.2 10*3/uL 4.4-11.0 [facility] Blood erythrocytes count (nu mber/volume)Ordered By: Dr. Uribe on 11-05-2022 RBC (Bld) [#/Vol] 4.74 10*6/uL 4.2-5.4 [facility] Blood hemoglobin measurement (mass/volume)Ordered By: Dr. Uribe on 11-05-2022 Hemoglobin (Bld) [Mass/Vol] 15.4 g/dL 12.0-15.0 [facility] Blood lymphocytes/100 leukoc ytesOrdered By: Dr. Uribe on 11-05-2022 Lymphocytes/100 WBC (Bld) 17.4 % 19-41 [facility] Blood monocytes/100 leukocyt esOrdered By: Dr. Uribe on 11-05-2022 Monocytes/100 WBC (Bld) 6.1 % 0-10 [facility] Blood platelet mean volumeOr dered By: Dr. Uribe on 11-05-2022 Platelet mean volume (Bld) [Entitic vol] 9.0 fL 6.2-12.0 [facility] Determination of erythrocyte mean corpuscular volume (MCV)Ordered By: Dr. Uribe on 11-05-2022 MCV (RBC) [Entitic vol] 91.1 fL 81-99 [facility] Hematocrit Auto (Bld) [Volum e fraction]Ordered By: Dr. Uribe on 11-05-2022 Hematocrit (Bld) [Volume fraction] 43.2 % 37-47 [facility] - Chemistry and C hemistry - challengeOrdered By: Dr. Uribe on 11-05-2022 CO2 [Moles/Vol] 29.0 mmol/L 21.0-32.0 [facility] Urea nitrogen/Creatinine [Mass ratio] 15.2 mg/mg 10-20 [facility] - Hematology and Cell countsOrdered By: Dr. Uribe on 11-05-2022 Erythrocyte distribution width (RBC) [Entitic vol] 39.2 fL 35.1-43.9 [facility] Erythrocyte distribution width (RBC) [Ratio] 11.7 % 11.6-14.6 [facility] Immature granulocytes/100 WBC (Bld) 0.100 % 0.0-0.9 [facility] Comment on above: IG% - Immature Granu locytes (promyelocytes, myelocytes and metamyelocytes) > 1% indicates that a LEFT SHIFT is Present. MCH (RBC) [Entitic mass] 32.5 pg 27.0-32.0 [facility] Nucleated RBC/100 WBC (Bld) [Ratio] 0 % 0-5 [facility] MCHC Auto (RBC) [Mass/Vol]Or dered By: Dr. Uribe on 11-05-2022 MCHC (RBC) [Mass/Vol] 35.6 g/dL 32-36 [facility] No Panel InformationOrdered By: Dr. Uribe on 11-05-2022 Troponin I High Sensitivity 4 pg/mL 3.0-54.0 [facility] Comment on above: Please Note: [place] t Units and Gender Specific Reference Ranges. For more information see Policy Stat Procedure [place] High Sensitivity Troponin (TNIH) and attachments. Estimated Creatinine Clearance Calc 59.70 ml/min [facility] Estimated GFR (MDRD) Amer 88 mL/min >60 [facility] Comment on above: GFR Calc Estimated GFR (MDRD) Non-Af Amer 72 mL/min >60 [facility] Comment on above: Non- GFR Calc Platelets bldOrdered By: Dr. Uribe on 11-05-2022 Platelets (Bld) [#/Vol] 327 10*3/uL 150-450 [facility] Serum or plasma calcium chance urement (mass/volume)Ordered By: Dr. Uribe on 11-05-2022 Calcium [Mass/Vol] 10.6 mg/dL 8.5-10.1 [facility] Serum or plasma creatinine m easurement (mass/volume)Ordered By: Dr. Uribe on 11-05-2022 Creatinine [Mass/Vol] 0.86 mg/dL 0.55-1.02 [facility] Comment on above: The validity of the calculated GFR & GFRAA in patients over 70 years has not been determined. Clinical correlation is essential. Serum or plasma urea nitroge n measurement (mass/volume)Ordered By: Dr. Uribe on 11-05-2022 Urea nitrogen [Mass/Vol] 13 mg/dL 7-18 [facility] Thin prep Papanicolaou smear with manual screeningOrdered By: Dr. Uribe on 11-05-2022 Thin prep Papanicolaou smear with manual screening 9 5-15 [facility] Absolute lymphocyte countOrd ered By: Dr. Medina on 07-29-2022 Lymphocytes Auto (Unsp spec) [#/Vol] 1.28 10*3/uL 0.83-4.51 [facility] Basophil percentageOrdered B y: Dr. Medina on 07-29-2022 Basophils/100 WBC (Bld) 0.2 % 0-1 [facility] Bilirubin [Mass/Vol] 0.40 mg/dL 0.20-1.00 [facility] Comment on above: For patients on eltr ombopag therapy, use of Dimension [place] TBIL is not recommended. Chloride [Moles/Vol] 100 mmol/L 98-107 [facility] Cholesterol [Mass/Vol] 220 mg/dL <200 [facility] Comment on above: <200 mg/dL Desirable 200-240 mg/dL Borderline >240 mg/dL High Risk Eosinophils/100 WBC (Bld) 0.2 % 0-5 [facility] Glucose [Mass/Vol] 97 mg/dL 74-106 [facility] Neutrophils (Bld) [#/Vol] 3.8 10*3/uL 2.0-7.7 [facility] Neutrophils/100 WBC (Bld) 69.0 % 47-70 [facility] Potassium [Moles/Vol] 3.6 mmol/L 3.5-5.1 [facility] Protein [Mass/Vol] 7.4 g/dL 6.4-8.2 [facility] Sodium [Moles/Vol] 134 mmol/L 136-145 [facility] Triglyceride [Mass/Vol] 157 mg/dL <199 [facility] Comment on above: The drugs N-Acetylcy steine and Metamizole may falsely depress this assay.Serum Triglycerides Reference Interval Normal <150 mg/dL Borderline high 150 - 199 mg/dL High 200 - 499 mg/dL Very High > or = 500 mg/dL WBC (Bld) [#/Vol] 5.5 10*3/uL 4.4-11.0 [facility] Blood erythrocytes count (nu mber/volume)Ordered By: Dr. Medina on 07-29-2022 RBC (Bld) [#/Vol] 4.09 10*6/uL 4.2-5.4 [facility] Blood hemoglobin measurement (mass/volume)Ordered By: Dr. Medina on 07-29-2022 Hemoglobin (Bld) [Mass/Vol] 13.1 g/dL 12.0-15.0 [facility] Blood lymphocytes/100 leukoc ytesOrdered By: Dr. Medina on 07-29-2022 Lymphocytes/100 WBC (Bld) 23.1 % 19-41 [facility] Blood monocytes/100 leukocyt esOrdered By: Dr. Medina on 07-29-2022 Monocytes/100 WBC (Bld) 7.1 % 0-10 [facility] Blood platelet mean volumeOr dered By: Dr. Medina on 07-29-2022 Platelet mean volume (Bld) [Entitic vol] 9.6 fL 6.2-12.0 [facility] Determination of erythrocyte mean corpuscular volume (MCV)Ordered By: Dr. Medina on 07-29-2022 MCV (RBC) [Entitic vol] 92.9 fL 81-99 [facility] Hematocrit Auto (Bld) [Volum e fraction]Ordered By: Dr. Medina on 07-29-2022 Hematocrit (Bld) [Volume fraction] 38.0 % 37-47 [facility] - Chemistry and C hemistry - challengeOrdered By: Dr. Medina on 07-29-2022 ALP [Catalytic activity/Vol] 77 U/L 45-117 [facility] ALT [Catalytic activity/Vol] 74 U/L 13-56 [facility] CO2 [Moles/Vol] 29.0 mmol/L 21.0-32.0 [facility] Globulin (S) [Mass/Vol] 3.1 g/dL 2.2-4.2 [facility] Urea nitrogen/Creatinine [Mass ratio] 21.5 mg/mg 10-20 [facility] - Hematology and Cell countsOrdered By: Dr. Medina on 07-29-2022 Erythrocyte distribution width (RBC) [Entitic vol] 40.3 fL 35.1-43.9 [facility] Erythrocyte distribution width (RBC) [Ratio] 11.9 % 11.6-14.6 [facility] Immature granulocytes/100 WBC (Bld) 0.400 % 0.0-0.9 [facility] Comment on above: IG% - Immature Granu locytes (promyelocytes, myelocytes and metamyelocytes) > 1% indicates that a LEFT SHIFT is Present. MCH (RBC) [Entitic mass] 32.0 pg 27.0-32.0 [facility] Nucleated RBC/100 WBC (Bld) [Ratio] 0 % 0-5 [facility] MCHC Auto (RBC) [Mass/Vol]Or dered By: Dr. Medina on 07-29-2022 MCHC (RBC) [Mass/Vol] 34.5 g/dL 32-36 [facility] No Panel InformationOrdered By: Dr. Medina on 07-29-2022 Estimated GFR (MDRD) Amer 90 mL/min >60 [facility] Comment on above: GFR Calc Estimated GFR (MDRD) Non-Af Amer 75 mL/min >60 [facility] Comment on above: Non- GFR Calc Thyroid Stimulating Hormone (TSH) 1.79 uIU/mL 0.358-3.74 [facility] Platelets bldOrdered By: Dr. Medina on 07-29-2022 Platelets (Bld) [#/Vol] 287 10*3/uL 150-450 [facility] Serum or plasma albumin chance urement (mass/volume)Ordered By: Dr. Medina on 07-29-2022 Albumin [Mass/Vol] 4.3 g/dL 3.2-5.0 [facility] Serum or plasma albumin/glob ulin mass ratioOrdered By: Dr. Medina on 07-29-2022 Albumin/Globulin [Mass ratio] 1.4 {ratio} 0.9-2.4 [facility] Serum or plasma calcium chance urement (mass/volume)Ordered By: Dr. Medina on 07-29-2022 Calcium [Mass/Vol] 9.6 mg/dL 8.5-10.1 [facility] Serum or plasma cholesterol in HDL measurement (mass/volume)Ordered By: Dr. Medina on 07-29-2022 Cholesterol in HDL [Mass/Vol] 62 mg/dL >40 [facility] Comment on above: The drugs N-Acetylcy steine and Metamizole may falsely depress this assay. Reference Range HDL <40 mg/dL Low HDL Cholesterol HDL >or= 60 mg/dL High HDL Cholesterol Serum or plasma cholesterol in VLDL measurement (mass/volume)Ordered By: Dr. Medina on 07-29-2022 Cholesterol in VLDL [Mass/Vol] 31 mg/dL 5-40 [facility] Serum or plasma creatinine m easurement (mass/volume)Ordered By: Dr. Medina on 07-29-2022 Creatinine [Mass/Vol] 0.84 mg/dL 0.55-1.02 [facility] Comment on above: The validity of the calculated GFR & GFRAA in patients over 70 years has not been determined. Clinical correlation is essential. Serum or plasma low density lipoprotein (LDL) cholesterol measurement (mass/volume)Ordered By: Dr. Medina on 07-29-2022 Cholesterol in LDL [Mass/Vol] 127 mg/dL 0-130 [facility] Serum or plasma urea nitroge n measurement (mass/volume)Ordered By: Dr. Medina on 07-29-2022 Urea nitrogen [Mass/Vol] 18 mg/dL 7-18 [facility] Thin prep Papanicolaou smear with manual screeningOrdered By: Dr. Medina on 07-29-2022 Thin prep Papanicolaou smear with manual screening 24 U/L 15-37 [facility] Thin prep Papanicolaou smear with manual screening 5 5-15 [facility] Whole blood hemoglobin A1c/t otal hemoglobin ratio (mass fraction)Ordered By: Dr. Medina on 07-29-2022 HbA1c (Bld) [Mass fraction] 5.2 % 3.8-5.6 [facility] Comment on above: Normal < 5.7 % Predi abetic 5.7 - 6.4 % Diabetic >or= 6.5 % Please note range changes. XR FLUORO 1-2 HRS TECH TIMEo n 05-21-2021 XR FLUORO 1-2 HRS TECH TIME ORIGINAL EXAMINATION: FLUORO MD - > 1 HR05/17/2021 4:03 pm Intraoperative fluoroscopy and image intensifier views of the lumbosacral spine COMPARISON: None HISTORY: ORDERING SYSTEM PROVIDED HISTORY: Reason for Exam: L4-5 posterior fusion with interspinous process device, , intraoperative imaging FINDINGS/IMPRESSION: Films - 4; Tech Time - 1 hr 40 min; C-Arm # - oec elite; Total Dose - 5.56 mGy; Canal Structure Operator - jlm; History - L4-5 posterior fusion with int; Fluoro Time - 13.9 sec; Outside Films for Comparison - n; Detail is limited. Please see intraoperative notes for additional details of the procedure. Interpreted by: Jayjay Carter Preliminary Report By: Jayjay Carter Electronically signed By Jayjay Carter Dictated Date: 05/21/2021 1:40:02 PM Prelim Date: 05/21/2021 1:40:30 PM Sign Date: 05/21/2021 1:40:30 PM Ordering Provider: HARMEET So [facility] ([place]) .Auto Diffon 05-17-2021 Basophil, Absolute 0.00 10 3/mcL Normal 0.00-0.19 [facility] ([place]) Comment on above: Performed By: #### C BC, ADIFF, ANEU, PRO, APTT #### [facility] [address] [place], [place] [address] #### BMP, GFR, A1C #### [facility] [address] [place] [id number] Basophils/100 WBC (Bld) 0.2 % Normal 0.0-2.5 [facility] ([place]) Comment on above: Performed By: #### C BC, ADIFF, ANEU, PRO, APTT #### [place] [address] #### BMP, GFR, A1C #### [address] [address] Eosinophil, Absolute 0.00 10 3/mcL Normal 0.00-0.40 [facility] ([place]) Comment on above: Performed By: #### C BC, ADIFF, ANEU, PRO, APTT #### [place] [address] #### BMP, GFR, A1C #### [address] [address] Eosinophils/100 WBC (Bld) 0.2 % Normal 0.0-7.0 [facility] ([place]) Comment on above: Performed By: #### C BC, ADIFF, ANEU, PRO, APTT #### [place] [address] #### BMP, GFR, A1C #### [address] [address] Lymphocyte, Absolute 1.00 10 3/mcL Normal 0.77-3.85 [facility] ([place]) Comment on above: Performed By: #### C BC, ADIFF, ANEU, PRO, APTT #### [place] [address] #### BMP, GFR, A1C #### [address] [address] Lymphocytes/100 WBC (Bld) 31.3 % Normal 10.0-50.0 [facility] ([place]) Comment on above: Performed By: #### C BC, ADIFF, ANEU, PRO, APTT #### [place] [address] #### BMP, GFR, A1C #### [address] [address] Monocyte, Absolute 0.30 10 3/mcL Normal 0.15-1.00 [facility] ([place]) Comment on above: Performed By: #### C BC, ADIFF, ANEU, PRO, APTT #### [address] [address] #### BMP, GFR, A1C #### [address] [address] Monocytes/100 WBC (Bld) 9.1 % Normal 1.7-13.0 [facility] ([place]) Comment on above: Performed By: #### C BC, ADIFF, ANEU, PRO, APTT #### [address] [address] #### BMP, GFR, A1C #### [address] [address] Neutrophils/100 WBC (Bld) 59.2 % Normal 37.0-80.0 [facility] ([place]) Comment on above: Performed By: #### C BC, ADIFF, ANEU, PRO, APTT #### [address] [address] #### BMP, GFR, A1C #### [address] [address] .GFRon 05-17-2021 GFR 77 ml/min/1.73sqm Normal [facility] ([place]) Comment on above: Result Comment: GFR Population mean for , Non- Americans Ages 20-29 = 116 mL/min/1.73 sq.m. Ages 30-39 = 107 mL/min/1.73 sq.m. Ages 40-49 = 99 mL/min/1.73 sq.m. Ages 50-59 = 93 mL/min/1.73 sq.m. Ages 60-69 = 85 mL/min/1.73 sq.m. Ages 70+ = 75 mL/min/1.73 sq.m. Chronic Kidney Disease: Less than 60 mL/min/1.73 square meters End Stage Renal Disease: Less than 15 mL/min/1.73 square meters Performed By: #### C BC, ADIFF, ANEU, PRO, APTT #### [address] [address] #### BMP, GFR, A1C #### [address] [address] GFR Non- 63 ml/min/1.73sqm Normal [facility] ([place]) Comment on above: Result Comment: GFR Population mean for , Non- Americans Ages 20-29 = 116 mL/min/1.73 sq.m. Ages 30-39 = 107 mL/min/1.73 sq.m. Ages 40-49 = 99 mL/min/1.73 sq.m. Ages 50-59 = 93 mL/min/1.73 sq.m. Ages 60-69 = 85 mL/min/1.73 sq.m. Ages 70+ = 75 mL/min/1.73 sq.m. Chronic Kidney Disease: Less than 60 mL/min/1.73 square meters End Stage Renal Disease: Less than 15 mL/min/1.73 square meters Performed By: #### C BC, ADIFF, ANEU, PRO, APTT #### [place] [address] #### BMP, GFR, A1C #### [address] [address] .NEUABSon 05-17-2021 Neutrophil, Absolute 1.90 10 3/mcL Low 2.85-6.16 [facility] ([place]) Comment on above: Performed By: #### C BC, ADIFF, ANEU, PRO, APTT #### [address] [address] #### BMP, GFR, A1C #### [place] [id number] APTTon 05-17-2021 aPTT Coag (Bld) [Time] 36.3 s Normal 23.7-37.6 [facility] ([place]) Comment on above: Result Comment: For Heparin anticoagulation therapy, the recommended therapeutic range is: 53.6-87.4 seconds (1.5 - 2.5 the normal plasma mean). Patients on heparin therapy may have an extreme result. Performed By: #### C BC, ADIFF, ANEU, PRO, APTT #### [place] [id number] #### BMP, GFR, A1C #### [address] [address] Heparin dose (APTT) Unknown Normal [facility] ([place]) Comment on above: Performed By: #### C BC, ADIFF, ANEU, PRO, APTT #### [address] [address] #### BMP, GFR, A1C #### [address] [address] BMPon 05-17-2021 BUN/Creatinine Ratio 13 ratio Normal 7-27 [facility] ([place]) Comment on above: Performed By: #### C BC, ADIFF, ANEU, PRO, APTT #### [address] [address] #### BMP, GFR, A1C #### [address] [address] Calcium [Mass/Vol] 8.8 mg/dL Normal 8.4-10.2 [facility] ([place]) Comment on above: Performed By: #### C BC, ADIFF, ANEU, PRO, APTT #### [address] [address] #### BMP, GFR, A1C #### [address] [address] Chloride [Moles/Vol] 98 mmol/L Normal 98-107 [facility] ([place]) Comment on above: Performed By: #### C BC, ADIFF, ANEU, PRO, APTT #### [address] [address] #### BMP, GFR, A1C #### [address] [address] CO2 [Moles/Vol] 32 mmol/L High 22-29 [facility] ([place]) Comment on above: Performed By: #### C BC, ADIFF, ANEU, PRO, APTT #### [address] [address] #### BMP, GFR, A1C #### [address] [address] Creatinine [Mass/Vol] 0.92 mg/dL Normal 0.55-1.02 [facility] ([place]) Comment on above: Performed By: #### C BC, ADIFF, ANEU, PRO, APTT #### [address] [address] #### BMP, GFR, A1C #### [address] [address] Electrolyte Balance 9.0 mEq/L Normal [facility] ([place]) Comment on above: Performed By: #### C BC, ADIFF, ANEU, PRO, APTT #### [address] [address] #### BMP, GFR, A1C #### [address] [address] Glucose [Mass/Vol] 90 mg/dL Normal 70-105 [facility] ([place]) Comment on above: Performed By: #### C BC, ADIFF, ANEU, PRO, APTT #### [address] [address] #### BMP, GFR, A1C #### [address] [address] Potassium [Moles/Vol] 3.3 mmol/L Low 3.5-5.1 [facility] ([place]) Comment on above: Performed By: #### C BC, ADIFF, ANEU, PRO, APTT #### [address] [address] #### BMP, GFR, A1C #### [address] [address] Sodium [Moles/Vol] 139 mmol/L Normal 136-145 [facility] ([place]) Comment on above: Performed By: #### C BC, ADIFF, ANEU, PRO, APTT #### [address] [address] #### BMP, GFR, A1C #### [address] [address] Urea nitrogen [Mass/Vol] 12 mg/dL Normal 7-18 [facility] ([place]) Comment on above: Performed By: #### C BC, ADIFF, ANEU, PRO, APTT #### [address] [address] #### BMP, GFR, A1C #### [address] [address] CBCon 05-17-2021 Erythrocyte distribution width (RBC) [Ratio] 13.0 % Normal 11.5-14.5 [facility] ([place]) Comment on above: Performed By: #### C BC, ADIFF, ANEU, PRO, APTT #### [place] [address] #### BMP, GFR #### [place] [address] Hematocrit (Bld) [Volume fraction] 37.5 % Normal 37.0-47.0 [facility] ([place]) Comment on above: Performed By: #### C BC, ADIFF, ANEU, PRO, APTT #### [place] [address] #### BMP, GFR #### [place] [address] Hgb 13.1 G/dL Normal 12.0-16.0 [facility] ([place]) Comment on above: Performed By: #### C BC, ADIFF, ANEU, PRO, APTT #### [place] [address] #### BMP, GFR #### [place] [address] MCH (RBC) [Entitic mass] 32.3 pg High 27.0-31.2 [facility] ([place]) Comment on above: Performed By: #### C BC, ADIFF, ANEU, PRO, APTT #### [place] [address] #### BMP, GFR #### [place] [address] MCHC 35.0 G/dL Normal 33.0-37.0 [facility] ([place]) Comment on above: Performed By: #### C BC, ADIFF, ANEU, PRO, APTT #### [place] [address] #### BMP, GFR #### [address] [address] MCV (RBC) [Entitic vol] 92.5 fL Normal 80.0-94.0 [facility] ([place]) Comment on above: Performed By: #### C BC, ADIFF, ANEU, PRO, APTT #### [place] [address] #### BMP, GFR #### [place] [address] Platelet 231 10 3/mcL Normal 130-400 [facility] ([place]) Comment on above: Performed By: #### C BC, ADIFF, ANEU, PRO, APTT #### [place] [address] #### BMP, GFR #### [place] [address] Platelet mean volume (Bld) [Entitic vol] 7.5 fL Normal 7.4-10.4 [facility] ([place]) Comment on above: Performed By: #### C BC, ADIFF, ANEU, PRO, APTT #### [place] [address] #### BMP, GFR #### [place] [address] RBC 4.05 10 6/mcL Low 4.20-5.40 [facility] ([place]) Comment on above: Performed By: #### C BC, ADIFF, ANEU, PRO, APTT #### [place] [address] #### BMP, GFR #### [place] [address] WBC 3.20 10 3/mcL Low 4.60-10.80 [facility] ([place]) Comment on above: Performed By: #### C BC, ADIFF, ANEU, PRO, APTT #### [place] [address] #### BMP, GFR #### [address] [address] PROon 05-17-2021 INR Coag (PPP) [Relative time] 0.9 {INR} Normal 0.9-1.2 [facility] ([place]) Comment on above: Result Comment: Yusuf dard Dose 2.0 - 3.0 High Dose 2.5 - 3.5 The recommended therapeutic range for oral anticoagulant therapy is: LOW RISK: Prophylaxis of venous thrombosis INR: 2.0 - 3.0 Treatment of pulmonary embolism 2.0 - 3.0 Prevention of systemic embolism 2.0 - 3.0 HIGH RISK: Mechanical prosthetic valves 2.5 - 3.5 Performed By: #### C BC, ADIFF, ANEU, PRO, APTT #### [place] [address] #### BMP, GFR, A1C #### [place] [address] PT Coag (PPP) [Time] 10.7 s Normal 9.7-14.3 [facility] ([place]) Comment on above: Performed By: #### C BC, ADIFF, ANEU, PRO, APTT #### [place] [address] #### BMP, GFR, A1C #### [address] [address] .Auto Diffon 02-19-2021 Basophil, Absolute 0.00 10 3/mcL Normal 0.00-0.19 [facility] ([place]) Comment on above: Performed By: #### C BC, ADIFF, ANEU, PRO, APTT #### [place] [address] #### BMP, GFR, A1C #### [address] [address] Basophils/100 WBC (Bld) 0.1 % Normal 0.0-2.5 [facility] ([place]) Comment on above: Performed By: #### C BC, ADIFF, ANEU, PRO, APTT #### [place] [address] #### BMP, GFR, A1C #### [address] [address] Eosinophil, Absolute 0.00 10 3/mcL Normal 0.00-0.40 [facility] ([place]) Comment on above: Performed By: #### C BC, ADIFF, ANEU, PRO, APTT #### [place] [address] #### BMP, GFR, A1C #### [address] [address] Eosinophils/100 WBC (Bld) 0.3 % Normal 0.0-7.0 [facility] ([place]) Comment on above: Performed By: #### C BC, ADIFF, ANEU, PRO, APTT #### [place] [address] #### BMP, GFR, A1C #### [address] [address] Lymphocyte, Absolute 1.30 10 3/mcL Normal 0.77-3.85 [facility] ([place]) Comment on above: Performed By: #### C BC, ADIFF, ANEU, PRO, APTT #### [place] [address] #### BMP, GFR, A1C #### [address] [address] Lymphocytes/100 WBC (Bld) 22.8 % Normal 10.0-50.0 [facility] ([place]) Comment on above: Performed By: #### C BC, ADIFF, ANEU, PRO, APTT #### [place] [address] #### BMP, GFR, A1C #### [address] [address] Monocyte, Absolute 0.40 10 3/mcL Normal 0.15-1.00 [facility] ([place]) Comment on above: Performed By: #### C BC, ADIFF, ANEU, PRO, APTT #### [address] [address] #### BMP, GFR, A1C #### [address] [address] Monocytes/100 WBC (Bld) 7.8 % Normal 1.7-13.0 [facility] ([place]) Comment on above: Performed By: #### C BC, ADIFF, ANEU, PRO, APTT #### [address] [address] #### BMP, GFR, A1C #### [address] [address] Neutrophils/100 WBC (Bld) 69.0 % Normal 37.0-80.0 [facility] ([place]) Comment on above: Performed By: #### C BC, ADIFF, ANEU, PRO, APTT #### [address] [address] #### BMP, GFR, A1C #### [address] [address] .GFRon 02-19-2021 GFR 82 ml/min/1.73sqm Normal [facility] ([place]) Comment on above: Result Comment: GFR Population mean for , Non- Americans Ages 20-29 = 116 mL/min/1.73 sq.m. Ages 30-39 = 107 mL/min/1.73 sq.m. Ages 40-49 = 99 mL/min/1.73 sq.m. Ages 50-59 = 93 mL/min/1.73 sq.m. Ages 60-69 = 85 mL/min/1.73 sq.m. Ages 70+ = 75 mL/min/1.73 sq.m. Chronic Kidney Disease: Less than 60 mL/min/1.73 square meters End Stage Renal Disease: Less than 15 mL/min/1.73 square meters Performed By: #### C BC, ADIFF, ANEU, PRO, APTT #### [address] [address] #### BMP, GFR, A1C #### [address] [address] GFR Non- 68 ml/min/1.73sqm Normal [facility] ([place]) Comment on above: Result Comment: GFR Population mean for , Non- Americans Ages 20-29 = 116 mL/min/1.73 sq.m. Ages 30-39 = 107 mL/min/1.73 sq.m. Ages 40-49 = 99 mL/min/1.73 sq.m. Ages 50-59 = 93 mL/min/1.73 sq.m. Ages 60-69 = 85 mL/min/1.73 sq.m. Ages 70+ = 75 mL/min/1.73 sq.m. Chronic Kidney Disease: Less than 60 mL/min/1.73 square meters End Stage Renal Disease: Less than 15 mL/min/1.73 square meters Performed By: #### C BC, ADIFF, ANEU, PRO, APTT #### [address] [address] #### BMP, GFR, A1C #### [address] [address] .NEUABSon 02-19-2021 Neutrophil, Absolute 4.00 10 3/mcL Normal 2.85-6.16 [facility] ([place]) Comment on above: Performed By: #### C BC, ADIFF, ANEU, PRO, APTT #### [address] [address] #### BMP, GFR, A1C #### [address] [address] A1Con 02-19-2021 HbA1c (Bld) [Mass fraction] 5.3 % Normal 4.3-6.4 [facility] ([place]) Comment on above: Performed By: #### C BC, ADIFF, ANEU, PRO, APTT #### [address] [address] #### BMP, GFR, A1C #### [address] [address] APTTon 02-19-2021 aPTT Coag (Bld) [Time] 33.2 s Normal 23.7-37.6 [facility] ([place]) Comment on above: Result Comment: For Heparin anticoagulation therapy, the recommended therapeutic range is: 53.6-87.4 seconds (1.5 - 2.5 the normal plasma mean). Patients on heparin therapy may have an extreme result. Performed By: #### C BC, ADIFF, ANEU, PRO, APTT #### [place] [address] #### BMP, GFR, A1C #### [address] [address] Heparin dose (APTT) None Normal [facility] ([place]) Comment on above: Performed By: #### C BC, ADIFF, ANEU, PRO, APTT #### [place] [address] #### BMP, GFR, A1C #### [address] [address] BMPon 02-19-2021 BUN/Creatinine Ratio 15 ratio Normal 7-27 [facility] ([place]) Comment on above: Performed By: #### C BC, ADIFF, ANEU, PRO, APTT #### [place] [address] #### BMP, GFR, A1C #### [address] [address] Calcium [Mass/Vol] 9.2 mg/dL Normal 8.4-10.2 [facility] ([place]) Comment on above: Performed By: #### C BC, ADIFF, ANEU, PRO, APTT #### [place] [address] #### BMP, GFR, A1C #### [address] [address] Chloride [Moles/Vol] 101 mmol/L Normal 98-107 [facility] ([place]) Comment on above: Performed By: #### C BC, ADIFF, ANEU, PRO, APTT #### [place] [address] #### BMP, GFR, A1C #### [address] [address] CO2 [Moles/Vol] 32 mmol/L High 22-29 [facility] ([place]) Comment on above: Performed By: #### C BC, ADIFF, ANEU, PRO, APTT #### [address] [address] #### BMP, GFR, A1C #### [address] [address] Creatinine [Mass/Vol] 0.87 mg/dL Normal 0.55-1.02 [facility] ([place]) Comment on above: Performed By: #### C BC, ADIFF, ANEU, PRO, APTT #### [address] [address] #### BMP, GFR, A1C #### [address] [address] Electrolyte Balance 9.0 mEq/L Normal [facility] ([place]) Comment on above: Performed By: #### C BC, ADIFF, ANEU, PRO, APTT #### [address] [address] #### BMP, GFR, A1C #### [address] [address] Glucose [Mass/Vol] 107 mg/dL High 70-105 [facility] ([place]) Comment on above: Performed By: #### C BC, ADIFF, ANEU, PRO, APTT #### [address] [address] #### BMP, GFR, A1C #### [address] [address] Potassium [Moles/Vol] 3.9 mmol/L Normal 3.5-5.1 [facility] ([place]) Comment on above: Performed By: #### C BC, ADIFF, ANEU, PRO, APTT #### [address] [address] #### BMP, GFR, A1C #### [address] [address] Sodium [Moles/Vol] 142 mmol/L Normal 136-145 [facility] ([place]) Comment on above: Performed By: #### C BC, ADIFF, ANEU, PRO, APTT #### [address] [address] #### BMP, GFR, A1C #### [address] [address] Urea nitrogen [Mass/Vol] 13 mg/dL Normal 7-18 [facility] ([place]) Comment on above: Performed By: #### C BC, ADIFF, ANEU, PRO, APTT #### [address] [address] #### BMP, GFR, A1C #### [address] [address] CBCon 02-19-2021 Erythrocyte distribution width (RBC) [Ratio] 13.2 % Normal 11.5-14.5 [facility] ([place]) Comment on above: Order Comment: Pre-A dmission Testing Performed By: #### C BC, ADIFF, ANEU, PRO, APTT #### [address] [address] #### BMP, GFR, A1C #### [address] [address] Hematocrit (Bld) [Volume fraction] 39.4 % Normal 37.0-47.0 [facility] ([place]) Comment on above: Order Comment: Pre-A dmission Testing Performed By: #### C BC, ADIFF, ANEU, PRO, APTT #### [address] [address] #### BMP, GFR, A1C #### [address] [address] Hgb 13.7 G/dL Normal 12.0-16.0 [facility] ([place]) Comment on above: Order Comment: Pre-A dmission Testing Performed By: #### C BC, ADIFF, ANEU, PRO, APTT #### [address] [address] #### BMP, GFR, A1C #### [place] [address] MCH (RBC) [Entitic mass] 32.1 pg High 27.0-31.2 [facility] ([place]) Comment on above: Order Comment: Pre-A dmission Testing Performed By: #### C BC, ADIFF, ANEU, PRO, APTT #### [place] [address] #### BMP, GFR, A1C #### [place] [address] MCHC 34.8 G/dL Normal 33.0-37.0 [facility] ([place]) Comment on above: Order Comment: Pre-A dmission Testing Performed By: #### C BC, ADIFF, ANEU, PRO, APTT #### [place] [address] #### BMP, GFR, A1C #### [place] [address] MCV (RBC) [Entitic vol] 92.3 fL Normal 80.0-94.0 [facility] ([place]) Comment on above: Order Comment: Pre-A dmission Testing Performed By: #### C BC, ADIFF, ANEU, PRO, APTT #### [place] [address] #### BMP, GFR, A1C #### [place] [address] Platelet 257 10 3/mcL Normal 130-400 [facility] ([place]) Comment on above: Order Comment: Pre-A dmission Testing Performed By: #### C BC, ADIFF, ANEU, PRO, APTT #### [place] [address] #### BMP, GFR, A1C #### [place] [address] Platelet mean volume (Bld) [Entitic vol] 8.1 fL Normal 7.4-10.4 [facility] ([place]) Comment on above: Order Comment: Pre-A dmission Testing Performed By: #### C BC, ADIFF, ANEU, PRO, APTT #### [address] [address] #### BMP, GFR, A1C #### [place] [address] RBC 4.27 10 6/mcL Normal 4.20-5.40 [facility] ([place]) Comment on above: Order Comment: Pre-A dmission Testing Performed By: #### C BC, ADIFF, ANEU, PRO, APTT #### [place] [address] #### BMP, GFR, A1C #### [place] [address] WBC 5.70 10 3/mcL Normal 4.60-10.80 [facility] ([place]) Comment on above: Order Comment: Pre-A dmission Testing Performed By: #### C BC, ADIFF, ANEU, PRO, APTT #### [place] [address] #### BMP, GFR, A1C #### [place] [address] PROon 02-19-2021 INR Coag (PPP) [Relative time] 0.9 {INR} Normal 0.9-1.2 [facility] ([place]) Comment on above: Result Comment: Yusuf dard Dose 2.0 - 3.0 High Dose 2.5 - 3.5 The recommended therapeutic range for oral anticoagulant therapy is: LOW RISK: Prophylaxis of venous thrombosis INR: 2.0 - 3.0 Treatment of pulmonary embolism 2.0 - 3.0 Prevention of systemic embolism 2.0 - 3.0 HIGH RISK: Mechanical prosthetic valves 2.5 - 3.5 Performed By: #### C BC, ADIFF, ANEU, PRO, APTT #### [place] [address] #### BMP, GFR, A1C #### [place] [address] PT Coag (PPP) [Time] 11.3 s Normal 9.7-14.7 [facility] ([place]) Comment on above: Performed By: #### C BC, ADIFF, ANEU, PRO, APTT #### [place] [address] [place], [place] [address] #### BMP, GFR, A1C #### [address] [address] XR CHEST 2 VIEWSon 1 XR CHEST 2 VIEWS ORIGINAL XR CHEST 2 VIEWS CLINICAL STATEMENT: Shortness of breath. COMPARISON: None FINDINGS: The heart size is normal. There is no vascular congestion or focal infiltrate. There is calcified nodule of the RIGHT upper lobe. There is no pleural abnormality. Surgical clips are in the RIGHT upper quadrant. IMPRESSION: No acute process. Interpreted By: Gladis Isidro MD Preliminary Report By: Gladis Isidro MD Electronically Signed By: Gladis Isidro MD Dictated Date: 02/19/2021 12:56:15 PM Prelim Date: 02/19/2021 12:56:15 PM Sign Date: 02/19/2021 12:57:11 PM Ordering Provider:aHrmeet Taveras [facility] ([place]) Clinical Summary: HMSPatient IDon 08-06-2018 FOP Invalid Interpretation Code [facility] Work Phone: Office Visit: Consult - 2nd opinion, Rm: 5on 08-06-2018 NEGATED: Highlighted rowMRI (magnetic resonance imaging) history of the Lumbar on 06/08/2018 at [facility] Invalid Interpretation Code [facility] Work Phone: NEGATED: Highlighted rowProtein mass conc Done Invalid Interpretation Code [facility] Work Phone: Comprehensive Panelon 2017 Alkaline phosphatase (ALP) 54 U/L Normal 46-116 [facility] Comment on above: Performed By: #### P 14 ####[address] [address] Protein 7.3 g/dL Normal 6.4-8.2 [facility] Comment on above: Performed By: #### P 14 ####[address] [address] Bilirubin Ql (U) 0.2 mg/dL Normal 0.2-1.0 [facility] Comment on above: Performed By: #### P 14 ####[facility] [place], [place] [address] Alanine aminotransferase (ALT) 25 U/L Normal 12-78 [facility] Comment on above: Performed By: #### P 14 ####[facility] [place], [place] [address] Aspartate aminotransferase (AST) 10 U/L Normal 9-37 [facility] Comment on above: Performed By: #### P 14 ####[facility] [place], [place] [address] Creatinine 1.05 mg/dL High 0.51-0.95 [facility] Comment on above: Performed By: #### P 14 ####[address] [address] Albumin 3.9 g/dL Normal 3.4-5.0 [facility] Comment on above: Performed By: #### P 14 ####[address] [address] Glucose mass conc 104 mg/dL High 70-99 [facility] Comment on above: Performed By: #### P 14 ####[address] [address] Urea nitrogen 19 mg/dL High 7-18 [facility] Comment on above: Performed By: #### P 14 ####[facility] [place], [place] [address] Anion gap 8 mmol/L Normal 8-16 [facility] Comment on above: Performed By: #### P 14 ####[facility] [place], [place] [address] Calcium 8.6 mg/dL Normal 8.5-10.1 [facility] Comment on above: Performed By: #### P 14 ####[address] [address] CO2 30 mmol/L Normal 21-32 [facility] Comment on above: Performed By: #### P 14 ####[address] [address] Chloride 102 mmol/L Normal 98-107 [facility] Comment on above: Performed By: #### P 14 ####[facility] [place] [address] Potassium molar conc 3.5 mmol/L Normal 3.5-5.1 [facility] Comment on above: Performed By: #### P 14 ####[facility] [place] [address] Sodium 136 mmol/L Normal 136-145 [facility] Comment on above: Performed By: #### P 14 ####[place] [address] [facility] Troponin Ion 09-16-2017 Troponin I.cardiac mass conc ng/mL Normal 0.015-0.045 [facility] Comment on above: Performed By: #### E RTRP ####[place] [address] ED NOTEon 09-16-2017 ED NOTE HNO ID: [id number] Author: Sharita (Rn) KATELYNN Johnson Service: Emergency Medicine Author Type: Registered Nurse Type: ED Notes Filed: 09/16/2017 11:09 AM Note Text: Urine specimen obtained and sent. Normal [facility] ED NOTE HNO ID: [id number] Author: Sharita GarciaRn) KATELYNN Johnson Service: Emergency Medicine Author Type: Registered Nurse Type: ED Notes Filed: 09/16/2017 9:06 AM Note Text: Labs were drawn and sent. Normal [facility] ED NOTE HNO ID: [id number]: Bernardino (Medic) Jerica, MedicService: (none)Author Type: Runstitching Machine Operator and TechnicianType: ED NotesFiled: 09/16/2017 8:52 AMNote Text:Bed: ED-07Expected date: 09/16/17Expected time: 8:32 AMMeans of arrival: [facility] 03Comments:afd 3 syncope Normal [facility] ED PROV NOTEon 09-16-2017 ED PROV NOTE HNO ID: [id number]: LOI Panervice: Emergency MedicineAuthor Type: PhysicianType: ED Provider NotesFiled: 09/16/2017 2:42 PMNote Text:ED Provider NotePatient Name: Heide ColoradoN: [id number] DATE: 09/16/17HistoryPatient presents with:Syncope: Pt presents to EDwith c/o syncopal episode. Pt was caught by acoworker before she fell out of her chair. Pt states she had tingling inher hands when she awoke, but the feeling has since passed. States she hashad a cold recently and took cold medicine this morning. Denies decreasein fluid. Pt is awake, AANDOx3, calm, cooperative. Pt states she had asimilar episode about 3 weeks ago where she became hot and dizzy but didnot pass out. Pt denies pain at this time, denies SOB. No neuro deficitsnoticed. patient presents to the emergency department for syncopal episode.Patient states that she was at work this morning. She states that shebegan to feel very hot or and started to develop some tingling. Shestates that she then had an episode, coworker stated that her eyes rolledback in her head and they lowered her to the floor. She was unconsciousfor approximately 20 seconds, no shaking reported, no loss of bowel orbladder. Patient awoke and stated that she had some finger tingling thatis now resolved. Patient states that she had similar symptomsapproximately 3 weeks ago but did not actually syncopized. She denies anypalpitations prior to the event. She states that she has recently beenreceiving back injections as well as taking cold medicine for a upperrespiratory infection. She denies any numbness or tingling currently.Denies any short of breath. Denies abdominal pain. Denies any change invision or hearing. Denies any recent travel or trips.HPIPAST MEDICAL HISTORYDiagnosis Date- PMH - PAST MEDICAL HISTORY OF fibrocystic breasts- Trigeminal neuralgiaPAST SURGICAL HISTORYProcedure Laterality Date- LIGATE FALLOPIAN TUBE- PAST SURGICAL HISTORY OF ear tube placement- REMOVAL GALLBLADDER 2003FAMILY HISTORYProblem Relation Age of Onset- Breast Cancer Maternal Grandmother- Cancer Paternal Grandfather lung- Hypertension Mother- Diabetes Maternal Uncle x 2Social HistorySocial History Main Topics- Smoking status: Never Smoker- Smokeless tobacco: Not on file- Alcohol use No- Drug use: No- Sexual activity: Yes Partners: Male control/ protection: Surgical Comment: btlALLERGIESNo Known AllergiesReview of SystemsConstitutional: Negative for chills, diaphoresis and fever.HENT: Negative for congestion, rhinorrhea, sore throat and voice change.Eyes: Negative for visual disturbance.Respiratory: Negative for cough and shortness of breath.Cardiovascular: Negative for chest pain.Gastrointestinal: Negative for abdominal pain, constipation, diarrhea,nausea and vomiting.Genitourinary: Negative for dysuria.Musculoskeletal: Negative for back pain and neck pain.Skin: Negative for pallor, rash and wound.Neurological: Positive for syncope and numbness. Negative for weakness andheadaches.Physical ExamBP 135/78 Pulse 91 Temp 96.6 Resp 16 Ht 5' 2 (1.58m) Wt 143 lb(64.9kg) SpO2 100% BMI 26.15 kg/(m2).Physical ExamConstitutional: She is oriented to person, place, and time. She appearswell-developed and well-nourished. No distress.HENT:Head: Normocephalic and atraumatic.Right Ear: External ear normal.Left Ear: External ear normal.Mouth/Throat: Oropharynx is clear and moist. No oropharyngeal exudate.Eyes: Conjunctivae and EOM are normal. Pupils are equal, round, andreactive to light. Right eye exhibits no discharge. Left eye exhibits nodischarge.Neck: Normal range of motion. Neck supple. No tracheal deviation present.No thyromegaly present.Cardiovascular: Normal rate, regular rhythm, normal heart sounds andintact distal pulses. Exam reveals no gallop and no friction rub.No murmur heard.Pulmonary/Chest: Effort normal and breath sounds normal. No stridor. Norespiratory distress.Abdominal: Soft. She exhibits no distension and no mass. There is notenderness. There is no rebound and no guarding.Lymphadenopathy : She has no cervical adenopathy.Neurological: She is alert and oriented to person, place, and time. Nocranial nerve deficit. Coordination normal.Skin: Skin is warm. No rash noted. She is not diaphoretic.Nursing note and vitals reviewed.Diagnostic TestingED Labs Ordered and ReviewedCOMPREHENSIVE METABOLIC PANEL (AK,AV,EU,FV,HL,MACY,MM,SP ) - Abnormal;Notable for the following: Result Value Ref Range Glucose 104 (*) 70 - 99 mg/dL BUN 19 (*) 7 - 18 mg/dL Creatinine 1.05 (*) 0.51 - 0.95 mg/dL All other components within normal limitsCBC + AUTO DIFF (AK,AV,EU,FV,HL,MACY,MM,SP ) - Abnormal; Notable for thefollowing: MCHC 35.0 (*) 31.6 - 34.8 % RDW-SD 46.5 (*) 36.4 - 46.3 fl MPV 9.3 (*) 9.4 - 12.3 fl Monocyte # 0.71 (*) 0.27 - 0.70 thou/cmm All other components within normal limitsMAGNESIUM BLOOD (AK,AV,EU,FV,HL,MACY,MM,SP )ECU TROPONIN I ([place] ED)URINALYSIS WITH MICROSCOPIC (AK,AV,EU,FV,HL,MACY,MM,SP )MDRD GFRProceduresMedical Decision Making / ED CourseED Course EKG obtained here shows normal sinus rhythm at a rate of 91, normal Rwave progression, normal axis, no evidence of Knowles Parkinson White, noBrugada no evidence of LVH, no epsilon waves noted. His orthostatic vitalsigns were positive here she is given a liter of IV fluids and Zofran.Patient's orthostatics were positive here. CBC was unremarkable, BMP isremarkable for mild elevation of creatinine at 1.05, I have nothing tocompare this to, I suspect this is likely secondary to dehydration.Urinalysis obtained here was negative, troponin negative. Patient wasgiven a liter of IV fluids and and noted throughout the hallway. By [place] syncope criteria she is low risk, I do feel she is safe tofollow up with her primary care physician.Encounter Diagnosis ICD-10-CM1. Vasovagal syncope [id number] Patient was DISCHARGED: Counseled patient regarding lab results ANDradiology results AND suspected diagnosis AND need for follow-up. Dischargedhome with verbal and written instructions. They were instructed to returnas needed for persistent or worsening symptoms or any new concerns.Condition at time of disposition: stableSIGNATURE: Yoon Landers (Res) King TSGrihsezr73/09/18 1141ATTENDING NOTE:I performed a history and physical examination of the patient andsupervised and discussed the management with the resident/PA. I discussedthe care/management plan with the PA/resident. I reviewed theresident/PA's note and agree with the documented findings and plan ofcare.Electronically verified by Ivette Wyatt, MDPatient presents today complaining of a syncopal episode. She states thatthis morning she went to work. While she was sitting at her desk shebegan to feel very hot. She became nauseated and lightheaded. She toldher coworkers that she did not feel well. They helped grab her. She thenhad a brief syncopal episode of approximately 20 seconds. She had andthat felt tingling briefly. She had no preceding chest pain or shortnessof breath. Since that time she states she is feeling much better. Shedoes feel slightly nauseated. She denies any chest pain, shortness ofbreath, vomiting, abdominal pain or headache. She has no othercomplaints. She has had a similar episode in the past.On examination vital signs are within normal limits. Heart is regularrate and rhythm with no murmurs. Lungs are clear to auscultationbilaterally. Abdomen is soft and nontender. Normal strength in all 4limbs. Alert and oriented ?3 with no focal neurologic deficits.An EKG shows normal sinus rhythm with no ST elevation. Blood work isunremarkable. Upon arrival the patient was mildly orthostatic. She wasgiven IV fluids. She is now feeling better. At this time I believe thepatient had orthostatic or vasovagal syncope. She may be discharged homeand can follow up closely with her regular doctor.Ivette Wyatt MD09/16/17 1442 Normal [facility] Hemogram/Diffon 09-16-2017 Abs Immature Grans 0.04 thou/cmm Normal 0.00-0.05 [facility] Comment on above: Performed By: #### C BCD1 ####[place] [address] Abs. Baso 0.02 thou/cmm Normal 0.01-0.08 [facility] Comment on above: Performed By: #### C BCD1 ####[facility] [place], [place] [address] Abs. [place] 0.71 thou/cmm High 0.27-0.70 [facility] Comment on above: Performed By: #### C BCD1 ####[facility] [place], [place] [address] Abs. Neut 4.47 thou/cmm Normal 1.56-6.13 [facility] Comment on above: Performed By: #### C BCD1 ####[address] [address] Basophils/100 WBC Auto (Bld) 0.3 % Normal [facility] Comment on above: Performed By: #### C BCD1 ####[address] [address] Eosinophils 0.08 thou/cmm Normal 0.00-0.31 [facility] Comment on above: Performed By: #### C BCD1 ####[address] [address] Eosinophils/100 leukocytes 1.2 % Normal [facility] Comment on above: Performed By: #### C BCD1 ####[address] [address] Erythrocyte distribution width Auto Ratio (RBC) 14.4 % Normal 11.7-14.4 [facility] Comment on above: Performed By: #### C BCD1 ####[address] [address] Erythrocytes (RBC) 4.77 mil/cmm Normal 3.93-5.22 [facility] Comment on above: Performed By: #### C BCD1 ####[address] [address] Hematocrit (HCT) 42.3 % Normal 34.1-44.9 [facility] Comment on above: Performed By: #### C BCD1 ####[address] [address] Hemoglobin mass conc (Bld) 14.8 g/dL Normal 11.2-15.7 [facility] Comment on above: Performed By: #### C BCD1 ####[facility] [place], [place] [address] Immature Grans 0.60 % Normal [facility] Comment on above: Performed By: #### C BCD1 ####[facility] [place], [place] [address] Lymphocytes 1.32 thou/cmm Normal 1.18-3.74 [facility] Comment on above: Performed By: #### C BCD1 ####[address] [address] Lymphocytes/100 leukocytes 19.9 % Normal [facility] Comment on above: Performed By: #### C BCD1 ####[address] [address] MCH 31.0 pg Normal 25.6-32.2 [facility] Comment on above: Performed By: #### C BCD1 ####[address] [address] MCHC mass conc (RBC) 35.0 % High 31.6-34.8 [facility] Comment on above: Performed By: #### C BCD1 ####[address] [address] MCV 88.7 fL Normal 79.4-94.8 [facility] Comment on above: Performed By: #### C BCD1 ####[address] [address] Monocytes/100 leukocytes 10.7 % Normal [facility] Comment on above: Performed By: #### C BCD1 ####[address] [address] Platelet mean volume (PMV) 9.3 fL Low 9.4-12.3 [facility] Comment on above: Performed By: #### C BCD1 ####[address] [address] Platelets 249 thou/cmm Normal 182-369 [facility] Comment on above: Performed By: #### C BCD1 ####[place] [address] RDW SD 46.5 fl High 36.4-46.3 [facility] Comment on above: Performed By: #### C BCD1 ####[place] [address] Seg Neutrophil 67.3 % Normal [facility] Comment on above: Performed By: #### C BCD1 ####[place] [address] WBC (Leukocytes) 6.64 thou/cmm Normal 3.98-10.04 [facility] Comment on above: Performed By: #### C BCD1 ####[place] [address] MDRD GFRon 09-16-2017 eGFR (non-black) 54.92 mL/min/{1.73_m2} Normal > 60mL/min/1 .73m2 [facility] Comment on above: Result Comment: If t he patient is , multiply the result by 1.210. Performed By: #### G FR ####[place] [address] Magnesium Bloodon 09-16-2017 Magnesium 2.0 mg/dL Normal 1.6-2.6 [facility] Comment on above: Performed By: #### M AG ####[place] [address] Urinalysis Routineon 018 Ep Cells Urine 0.9 /hpf Normal 0.0-5.0 [facility] Comment on above: Performed By: #### U RIN2 ####[place] [address] Hyaline Cast 0.3 /lpf Normal 0.0-1.0 [facility] Comment on above: Performed By: #### U RIN2 ####[place] [address] Urine, bacteria in sediment NONE Normal None [facility] Comment on above: Performed By: #### U RIN2 ####[place] [address] Urine, erythrocytes in sediment by area 1.8 /[HPF] Normal 0.0-5.0 [facility] Comment on above: Performed By: #### U RIN2 ####[address] [address] Urine, leukocytes in sedmiment 0.5 /[HPF] Normal 0.0-5.0 [facility] Comment on above: Performed By: #### U RIN2 ####[address] [address] Bilirubin Urine Negative Normal Negative [facility] Comment on above: Performed By: #### U RIN2 ####[place] [address] Hemoglobin,Urine Negative Normal Negative [facility] Comment on above: Performed By: #### U RIN2 ####[place] [address] Ketone Urine Negative Normal Negative [facility] Comment on above: Performed By: #### U RIN2 ####[address] [address] Nitrites Urine Negative Normal Negative [facility] Comment on above: Performed By: #### U RIN2 ####[address] [address] Protein Urine Negative Normal Negative [facility] Comment on above: Performed By: #### U RIN2 ####[place] [address] Specific Meredith, Ur 1.016 Normal 1.005-1.030 [facility] Comment on above: Performed By: #### U RIN2 ####[address] [address] Urine, appearance CLEAR Normal [facility] Comment on above: Performed By: #### U RIN2 ####[address] [address] Urine, color YELLOW Normal [facility] Comment on above: Performed By: #### U RIN2 ####[address] [place] [address] Urine, glucose presence Negative Normal Negative [facility] Comment on above: Performed By: #### U RIN2 ####[facility] [place], [place] [address] Urine, pH 6.0 [pH] Normal 5.0-8.0 [facility] Comment on above: Performed By: #### U RIN2 ####[facility] [place], [place] [address] Urobilinogen,Ur 0.2 EU/dL Normal 0.0-1.0 [facility] Comment on above: Performed By: #### U RIN2 ####[place] [address] WBC (Leukocytes) Negative Normal Negative [facility] Comment on above: Performed By: #### U RIN2 ####[address] [address] Vital Signs Date Time Vital Sign Value Performing Clinician Facility 02-23-2025 11:[id number] Body height 160 cm Hood Medina MD Work Phone: [facility] 02-23-2025 11:11-0400 Body mass index (BMI) [Ratio] 25.33 kg/m2 Hood Medina MD Work Phone: [facility] 02-23-2025 11:11-0400 Body temperature 96.91 [degF] Hood Medina MD Work Phone: [facility] 02-23-2025 11:11-0400 Body weight 64.86 kg Hood Medina MD Work Phone: [facility] 02-23-2025 11:11-0400 Diastolic blood pressure 82 mm[Hg] Hood Medina MD Work Phone: [facility] 02-23-2025 11:11-0400 Heart rate 80 /min Hood Medina MD Work Phone: [facility] 02-23-2025 11:11-0400 Respiratory rate 18 /min Hood Medina MD Work Phone: [facility] 02-23-2025 11:11-0400 SaO2% (BldA) [Mass fraction] 99 % Hood Medina MD Work Phone: [facility] 02-23-2025 11:11-0400 Systolic blood pressure 132 mm[Hg] Hood Medina MD Work Phone: [facility] 08-11-2024 13:47-0500 Body height 160 cm Hood Medina MD Work Phone: [facility] 08-11-2024 13:47-0500 Body mass index (BMI) [Ratio] 25.86 kg/m2 Hood Medina MD Work Phone: [facility] 08-11-2024 13:47-0500 Body temperature 97.59 [degF] Hood Medina MD Work Phone: [facility] 08-11-2024 13:47-0500 Body weight 66.22 kg Hood Medina MD Work Phone: [facility] 08-11-2024 13:47-0500 Diastolic blood pressure 84 mm[Hg] Hood Medina MD Work Phone: [facility] 08-11-2024 13:47-0500 Heart rate 84 /min Hood Medina MD Work Phone: [facility] 08-11-2024 13:47-0500 Respiratory rate 18 /min Hood Medina MD Work Phone: [facility] 08-11-2024 13:47-0500 SaO2% (BldA) [Mass fraction] 99 % Hood Medina MD Work Phone: [facility] 08-11-2024 13:47-0500 Systolic blood pressure 116 mm[Hg] Hood Medina MD Work Phone: [facility] 02-18-2024 13:07-0400 Body height 160 cm Hood Medina MD Work Phone: [facility] 02-18-2024 13:07-0400 Body mass index (BMI) [Ratio] 24.98 kg/m2 Hood Medina MD Work Phone: [facility] 02-18-2024 13:07-0400 Body temperature 97.59 [degF] Hood Medina MD Work Phone: [facility] 02-18-2024 13:07-0400 Body weight 63.96 kg Hood Medina MD Work Phone: [facility] 02-18-2024 13:07-0400 Diastolic blood pressure 82 mm[Hg] Hood Medina MD Work Phone: [facility] 02-18-2024 13:07-0400 Heart rate 72 /min Hood Medina MD Work Phone: [facility] 02-18-2024 13:07-0400 Respiratory rate 18 /min Hood Medina MD Work Phone: [facility] 02-18-2024 13:07-0400 SaO2% (BldA) [Mass fraction] 100 % Hood Medina MD Work Phone: [facility] 02-18-2024 13:07-0400 Systolic blood pressure 136 mm[Hg] Hood Medina MD Work Phone: [facility] 07-09-2023 13:15-0400 Body height 160 cm Hood Medina MD Work Phone: [facility] 07-09-2023 13:15-0400 Body temperature 98.01 [degF] Hood Medina MD Work Phone: [facility] 07-09-2023 13:15-0400 Body weight 61.69 kg Hood Medina MD Work Phone: [facility] 07-09-2023 13:15-0400 Diastolic blood pressure 88 mm[Hg] Hood Medina MD Work Phone: [facility] 07-09-2023 13:15-0400 Heart rate 66 /min Hood Medina MD Work Phone: [facility] 07-09-2023 13:15-0400 Respiratory rate 16 /min Hood Medina MD Work Phone: [facility] 07-09-2023 13:15-0400 SaO2% (BldA) [Mass fraction] 100 % Hood Medina MD Work Phone: [facility] 07-09-2023 13:15-0400 Systolic blood pressure 138 mm[Hg] Hood Medina MD Work Phone: [facility] 01-01-2023 13:09-0400 Body height 160 cm Hood Medina MD Work Phone: [facility] 01-01-2023 13:09-0400 Body temperature 97 [degF] Hood Medina MD Work Phone: [facility] 01-01-2023 13:09-0400 Body weight 62.26 kg Hood Medina MD Work Phone: [facility] 01-01-2023 13:09-0400 Diastolic blood pressure 86 mm[Hg] Hood Medina MD Work Phone: [facility] 01-01-2023 13:09-0400 Heart rate 89 /min Hood Medina MD Work Phone: [facility] 01-01-2023 13:09-0400 Respiratory rate 18 /min Hood Medina MD Work Phone: [facility] 01-01-2023 13:09-0400 SaO2% (BldA) [Mass fraction] 98 % Hood Medina MD Work Phone: [facility] 01-01-2023 13:09-0400 Systolic blood pressure 132 mm[Hg] Hood Medina MD Work Phone: [facility] 11-13-2022 10:47-0500 Body height 160 cm Hood Medina MD Work Phone: [facility] 11-13-2022 10:47-0500 Body temperature 97.59 [degF] Hood Medina MD Work Phone: [facility] 11-13-2022 10:47-0500 Body weight 63.69 kg Hood Medina MD Work Phone: [facility] 11-13-2022 10:47-0500 Diastolic blood pressure 88 mm[Hg] Hood Medina MD Work Phone: [facility] 11-13-2022 10:47-0500 Heart rate 76 /min Hood Medina MD Work Phone: [facility] 11-13-2022 10:47-0500 Respiratory rate 18 /min Hood Medina MD Work Phone: [facility] 11-13-2022 10:47-0500 SaO2% (BldA) [Mass fraction] 98 % Hood Medina MD Work Phone: [facility] 11-13-2022 10:47-0500 Systolic blood pressure 136 mm[Hg] Hood Medina MD Work Phone: [facility] 11-05-2022 17:00-0500 Diastolic blood pressure 99 mm[Hg] [facility] 11-05-2022 17:00-0500 Heart rate 83 /min [facility] 11-05-2022 17:00-0500 Systolic blood pressure 132 mm[Hg] [facility] 11-05-2022 13:52-0500 Respiratory rate 13 /min [facility] 11-05-2022 13:52-0500 SaO2% (BldA) [Mass fraction] 93 % [facility] 11-05-2022 12:31-0500 Body height 160.02 cm [facility] 11-05-2022 12:31-0500 Body mass index (BMI) [Ratio] 26.9 kg/m2 [facility] 11-05-2022 12:31-0500 Body temperature 98.2 [degF] [facility] 11-05-2022 12:31-0500 Body weight 69 kg [facility] 05-15-2022 13:22-0400 Body height 160 cm Hood Medina MD Work Phone: [facility] 05-15-2022 13:22-0400 Body temperature 96.91 [degF] Hood Medina MD Work Phone: [facility] 05-15-2022 13:22-0400 Body weight 68.22 kg Hood Medina MD Work Phone: [facility] 05-15-2022 13:22-0400 Diastolic blood pressure 76 mm[Hg] Hood Medina MD Work Phone: [facility] 05-15-2022 13:22-0400 Heart rate 100 /min Hood Medina MD Work Phone: [facility] 05-15-2022 13:22-0400 Respiratory rate 14 /min Hood Medina MD Work Phone: [facility] 05-15-2022 13:22-0400 SaO2% (BldA) [Mass fraction] 97 % Hood Medina MD Work Phone: [facility] 05-15-2022 13:22-0400 Systolic blood pressure 120 mm[Hg] Hood Medina MD Work Phone: [facility] 11-12-2021 10:56-0500 Body temperature 97.81 [degF] Hood Medina MD Work Phone: [facility] 11-12-2021 10:56-0500 Body weight 68.1 kg Hood Medina MD Work Phone: [facility] 11-12-2021 10:56-0500 Diastolic blood pressure 75 mm[Hg] Hood Medina MD Work Phone: [facility] 11-12-2021 10:56-0500 Heart rate 98 /min Hood Medina MD Work Phone: [facility] 11-12-2021 10:56-0500 Respiratory rate 14 /min Hood Medina MD Work Phone: [facility] 11-12-2021 10:56-0500 SaO2% (BldA) [Mass fraction] 98 % Hood Medina MD Work Phone: [facility] 11-12-2021 10:56-0500 Systolic blood pressure 121 mm[Hg] Hood Medina MD Work Phone: [facility] NEGATED: Highlighted [id number] 13:06-0500 BMI (Body Mass Index) 27.35 kg/m2 Oliverio Nadia [facility] Work Phone: NEGATED: Highlighted [id number] 13:06-0500 BP Diastolic 91 mm[Hg] [facility] Work Phone: NEGATED: Highlighted [id number] 13:06-0500 BP Diastolic 77 mm[Hg] [facility] Work Phone: NEGATED: Highlighted [id number] 13:06-0500 BP Systolic 138 mm[Hg] [facility] Work Phone: NEGATED: Highlighted [id number] 13:06-0500 BP Systolic 133 mm[Hg] [facility] Work Phone: NEGATED: Highlighted [id number] 13:06-0500 Height 157.48 cm [facility] Work Phone: NEGATED: Highlighted [id number] 13:06-0500 Height 157 cm [facility] Work Phone: NEGATED: Highlighted [id number] 13:06-0500 Pulse (Heart Rate) 85 /min Oliverio Alvarado [facility] Work Phone: NEGATED: Highlighted [id number] 13:06-0500 [facility] Work Phone: NEGATED: Highlighted [id number] 13:06-0500 Weight 68 kg [facility] Work Phone: Encounters Encounter Date Encounter Type Care Provider Facility Start: 02-26-2025 [facility] Harmeet Ruiz Facilit y:[facility] Start: 02-23-2025 End: 02-23-2025 Office outpatient visit 25 minutes Hood Medina MD Work Phone: [facility] Comment on above: Essential (primary) hypertension; Chronic pain syndrome Start: 02-23-2025 End: 02-23-2025 ambulatory HOOD MEDINA Facility:[id number] Start: 12-27-2024 End: 12-28-2024 Refill Hood Medina MD Work Phone: [facility] Comment on above: Refill Request Start: 09-22-2024 End: 09-22-2024 ambulatory Hood Medina MD Work Phone: [facility] Start: 09-22-2024 End: 09-22-2024 Patient encounter procedure Hood Medina MD Work Phone: [facility] Comment on above: Test Results Start: 09-13-2024 End: 09-13-2024 Refill Hood Medina MD Work Phone: [facility] Comment on above: Refill Request Start: 08-11-2024 End: 08-11-2024 Patient encounter status Hood Medina MD Work Phone: [facility] Start: 08-11-2024 End: 08-11-2024 Periodic preventive med est patient 40-64yrs Hood Medina MD Work Phone: [facility] Comment on above: Wellness examination (Primary Dx); Pure hypercholesterolemia; Primary hypertension; Screening for deficiency anemia; Primary insomnia; Anxiety; Acquired hypothyroidism Start: 08-11-2024 End: 08-11-2024 ambulatory HOOD MEDINA Facility:[id number] Start: 08-11-2024 Encounter for genera l adult medical examination without abnormal findings HOOD MEDINA [facility] Start: 06-14-2024 End: 06-14-2024 Refill Hood Medina MD Work Phone: [facility] Comment on above: Refill Request Start: 03-16-2024 Refill Hood Lemons MD Work Phone: [facility] Comment on above: Refill Request Start: 02-18-2024 End: 02-18-2024 Office outpatient visit 15 minutes Hood Medina MD Work Phone: [facility] Comment on above: Primary hypertension (Primary Dx); Pure hypercholesterolemia; Screening for deficiency anemia Start: 01-29-2024 Refill Hood Lemons MD Work Phone: [facility] Comment on above: Refill Request Start: 12-18-2023 Patient encounter procedure [facility] Start: 09-07-2023 Refill Hood Lemons MD Work Phone: [facility] Comment on above: Refill Request Start: 07-11-2023 Patient encounter procedure [facility] Provider [facility] Start: 07-09-2023 End: 07-09-2023 Patient encounter status Hood Medina MD Work Phone: [facility] Work Phone: Start: 07-09-2023 End: 07-09-2023 Periodic preventive med est patient 40-64yrs Hood Medina MD Work Phone: [facility] Comment on above: Wellness examination (Primary Dx); Anxiety; Hypertension, essential; Pure hypercholesterolemia; Gastroesophageal reflux disease with esophagitis without hemorrhage; Acquired hypothyroidism; Screening for deficiency anemia Start: 06-03-2023 End: 06-03-2023 ambulatory HOOD MEDINA Facility:[facility] Start: 05-30-2023 End: 05-31-2023 ambulatory ANTHONY GUEVARA [facility] Start: 05-30-2023 End: 05-30-2023 Subsequent hospital visit by physician Anthony Guevara MD Work Phone: [facility] Comment on above: LOS WITHIN PROCEDURE CODE [V9000 (ICD-9-CM)] (Primary Dx) Start: 04-17-2023 Refill Hood Lemons MD Work Phone: [facility] Comment on above: Refill Request Start: 02-04-2023 Refill Hood Lemons MD Work Phone: [facility] Comment on above: Refill Request Start: 01-16-2023 Refill Hood Lemons MD Work Phone: [facility] Comment on above: Refill Request Start: 01-01-2023 End: 01-01-2023 Office outpatient visit 15 minutes Hood Medina MD Work Phone: [facility] Comment on above: Hypertension, essent ial (Primary Dx); Anxiety; Major depressive disorder with single episode, in remission (HCC) Start: 11-13-2022 End: 11-13-2022 Office outpatient visit 15 minutes Hood Medina MD Work Phone: [facility] Comment on above: Hypertension, essent ial (Primary Dx); Mixed hyperlipidemia; Anxiety Start: 11-07-2022 Refill Hood Lemons MD Work Phone: [facility] Comment on above: Refill Request Start: 11-05-2022 End: 11-05-2022 Emergency department patient visit [facility] Start: 08-14-2022 Refill Hood Lemons MD Work Phone: [facility] Comment on above: Refill Request Start: 07-29-2022 Patient encounter status Hood Medina MD Work Phone: [facility] Start: 07-29-2022 Telephone encounter Hood Medina MD Work Phone: [facility] Comment on above: Orders Start: 07-29-2022 End: 07-29-2022 Patient encounter procedure [facility] Start: 05-15-2022 End: 05-15-2022 Patient encounter status [facility] Medina MD [facility] [facility] Start: 05-15-2022 End: 05-15-2022 Periodic preventive med est patient 40-64yrs Hood Medina MD Work Phone: [facility] Comment on above: Wellness examination (Primary Dx); Anxiety; Mixed hyperlipidemia; Acquired hypothyroidism; Primary hypertension; Gastroesophageal reflux disease with esophagitis without hemorrhage; Diabetes beginning in adulthood (type 2/adult onset) (HCC); Screening for deficiency anemia Start: 05-14-2022 Chart abstracting Hood Medina MD Work Phone: [facility] Start: 05-14-2022 Patient encounter status Hood Medina MD Work Phone: [facility] Start: 05-07-2022 Refill Hood Lemons MD Work Phone: [facility] Comment on above: Refill Request Start: 03-06-2022 Refill Hood Lemons MD Work Phone: [facility] Comment on above: Refill Request Start: 09-12-2021 End: 09-12-2021 Discharged Recurring [facility] Start: 08-06-2018 End: 08-06-2018 Patient encounter procedure Omaira Orozco MD Work Phone: [facility] Work Phone: Start: 09-16-2017 End: 09-16-2017 Emergency department patient visit IVETTE WYATT Facility:[facility] Procedures Date Procedure Procedure Detail Performing Clinician Start: 11-20-2023 Colonoscopy Hood flores MD Work Phone: Start: 11-05-2022 Plain chest X-ray Start: 08-06-2018 End: 08-06-2018 Blood pressure within normal parameters - no follow-up required Omaira Orozco MD Work Phone: Start: 08-06-2018 End: 08-06-2018 BMI documented as above normal parameters - follow-up documented Omaira Orozco MD Work Phone: Start: 08-06-2018 End: 08-06-2018 Documentation of current medications Omaira Orozco MD Work Phone: Start: 08-06-2018 End: 08-06-2018 Pain assessment documented as positive - no follow-up/reason not given Omaira Orozco MD Work Phone: Start: 08-06-2018 End: 08-06-2018 Tobacco non-user Omaira Orozco MD Work Phone: Start: 08-22-2006 Mammography Hood flores MD Work Phone: Plan of Treatment Date Care Activity Detail Author Start: 11-19-2030 Screening for malignant neoplasm of colon [facility] Start: 02-23-2026 Annual PCP Team Chronic Disease Visit Annual PCP Team Chronic Disease Visit [facility] Start: 09-05-2025 End: 09-05-2025 Patient encounter procedure 09/05/2025 11:00 AM EST Office Visit [facility] [address] [place] [address] Hood Medina MD [address] [place], [place] [id number] Annual wellness [facility] Comment on above: Annual wellness Start: 08-11-2025 Annual PCP Team Chronic Disease Visit Annual PCP Team Chronic Disease Visit [facility] Start: 05-09-2025 Influenza vaccination Influenza Vaccine (Season Ended) [facility] Start: 02-23-2025 End: 02-23-2025 Patient encounter procedure 02/23/2025 11:00 AM EDT Office Visit [facility] [address] [place] [address] Hood Medina MD [address] [place] [address] 6 Month Follow Up [facility] Comment on above: 6 Month Follow Up Start: 02-17-2025 Annual PCP Team Chronic Disease Visit Annual PCP Team Chronic Disease Visit [facility] Start: 09-17-2024 Annual PCP Team Chronic Disease Visit Annual PCP Team Chronic Disease Visit [facility] Start: 08-11-2024 End: 11-10-2024 CBC W Auto Differential panel - Blood COMPLETE BLOOD COUNT AND DIFFERENTIAL Lab Routine Screening for deficiency anemia Expected: 08/11/2024, Expires: 11/10/2024 [facility] Work Phone: Comment on above: Expected: 08/11/2024, Expires: Start: 08-11-2024 End: 11-10-2024 Comprehensive metabolic 2000 panel - Serum or Plasma COMPREHENSIVE METABOLIC PANEL Lab Routine Pure hypercholesterolemia Primary hypertension Expected: 08/11/2024, Expires: 11/10/2024 [facility] Comment on above: Expected: 08/11/2024, Expires: Start: 08-11-2024 End: 11-10-2024 Lipid 1996 panel - Serum or Plasma LIPID PANEL BASIC Lab Routine Pure hypercholesterolemia Expected: 08/11/2024, Expires: 11/10/2024 [facility] Comment on above: Expected: 08/11/2024, Expires: Start: 08-11-2024 End: 11-10-2024 Thyrotropin [Units/volume] in Serum or Plasma THYROID STIMULATING HORMONE Lab Routine Acquired hypothyroidism Expected: 08/11/2024, Expires: 11/10/2024 [facility] Comment on above: Expected: 08/11/2024, Expires: Start: 08-11-2024 End: 08-11-2024 Patient encounter procedure 08/11/2024 1:50 PM EST Office Visit [facility] [address] [place] [phone] Hood Medina MD [address], [place] [id number] Annual Wellness [facility] Comment on above: Annual Wellness Start: 07-09-2024 Annual PCP Team Chronic Disease Visit Annual PCP Team Chronic Disease Visit [facility] Start: 07-09-2024 Screening for malignant neoplasm of breast Mammogram Screening [facility] Start: 05-09-2024 Covid-19 Vaccine () Covid-19 Vaccine () [facility] Start: 05-09-2024 Influenza vaccination Influenza Vaccine (#1) [facility] Start: 02-18-2024 End: 05-19-2024 CBC W Auto Differential panel - Blood COMPLETE BLOOD COUNT AND DIFFERENTIAL Lab Routine Screening for deficiency anemia Expected: 02/18/2024, Expires: 05/19/2024 [facility] Comment on above: Expected: 02/18/2024, Expires: 4 Start: 02-18-2024 End: 05-19-2024 Comprehensive metabolic 2000 panel - Serum or Plasma COMPREHENSIVE METABOLIC PANEL Lab Routine Pure hypercholesterolemia Primary hypertension Expected: 02/18/2024, Expires: 05/19/2024 [facility] Comment on above: Expected: 02/18/2024, Expires: 4 Start: 02-18-2024 End: 05-19-2024 Lipid 1996 panel - Serum or Plasma LIPID PANEL BASIC Lab Routine Pure hypercholesterolemia Expected: 02/18/2024, Expires: 05/19/2024 [facility] Work Phone: Comment on above: Expected: 02/18/2024, Expires: 4 Start: 02-18-2024 End: 02-18-2024 Patient encounter procedure 02/18/2024 1:20 PM EDT Office Visit [facility] [address] [place] [phone] Hood Medina MD [address] [place] [address] 6 month check up [facility] Comment on above: 6 month check up Start: 01-02-2024 ANNUAL PCP TEAM CHRONIC DISEASE VISIT ANNUAL PCP TEAM CHRONIC DISEASE VISIT [facility] Start: 11-14-2023 ANNUAL PCP TEAM CHRONIC DISEASE VISIT ANNUAL PCP TEAM CHRONIC DISEASE VISIT [facility] Start: 07-09-2023 End: 10-08-2023 CBC W Auto Differential panel - Blood CBC + DIFF Lab Routine Screening for deficiency anemia Expected: 07/09/2023, Expires: 10/08/2023 [facility] Work Phone: Comment on above: Expected: 07/09/2023, Expires: 4 Start: 07-09-2023 End: 10-08-2023 Comprehensive metabolic 2000 panel - Serum or Plasma COMP METABOLIC PANEL Lab Routine Hypertension, essential Pure hypercholesterolemia Expected: 07/09/2023, Expires: 10/08/2023 [facility] Work Phone: Comment on above: Expected: 07/09/2023, Expires: 4 Start: 07-09-2023 End: 10-08-2023 Lipid 1996 panel - Serum or Plasma LIPID PANEL BASIC Lab Routine Pure hypercholesterolemia Expected: 07/09/2023, Expires: 10/08/2023 [facility] Work Phone: Comment on above: Expected: 07/09/2023, Expires: 4 Start: 07-03-2023 Mammography Mammogram Screening [facility] Start: 07-03-2023 Screening for malignant neoplasm of breast Mammogram Screening [facility] Start: 05-15-2023 ANNUAL PCP TEAM CHRONIC DISEASE VISIT ANNUAL PCP TEAM CHRONIC DISEASE VISIT [facility] Start: 05-15-2023 BP CONTROLLED (<130/80) BP CONTROLLED (<130/80) [facility] Start: 05-09-2023 Covid-19 Vaccine () Covid-19 Vaccine () [facility] Start: 05-09-2023 FLU (#1) FLU (#1) [facility] Start: 05-09-2023 Influenza vaccination [facility] Start: 11-12-2022 BP CONTROLLED (<130/80) BP CONTROLLED (<130/80) [facility] Start: 11-05-2022 [facility] Start: 07-29-2022 End: 09-28-2022 CBC W Auto Differential panel - Blood CBC + DIFF Lab Routine Wellness examination Expected: 07/29/2022, Expires: 09/28/2022 [facility] Work Phone: Comment on above: Expected: 07/29/2022, Expires: 3 Start: 07-29-2022 End: 09-28-2022 Comprehensive metabolic 2000 panel - Serum or Plasma COMP METABOLIC PANEL Lab Routine Wellness examination Expected: 07/29/2022, Expires: 09/28/2022 [facility] Work Phone: Comment on above: Expected: 07/29/2022, Expires: 3 Start: 07-29-2022 End: 09-28-2022 Hemoglobin A1c in Blood HGB A1C Lab Routine Wellness examination Expected: 07/29/2022, Expires: 09/28/2022 [facility] Work Phone: Comment on above: Expected: 07/29/2022, Expires: 3 Start: 07-29-2022 End: 09-28-2022 Lipid 1996 panel - Serum or Plasma LIPID PANEL BASIC Lab Routine Wellness examination Expected: 07/29/2022, Expires: 09/28/2022 [facility] Work Phone: Comment on above: Expected: 07/29/2022, Expires: 3 Start: 07-29-2022 End: 09-28-2022 Thyrotropin [Units/volume] in Serum or Plasma TSH BLD Lab Routine Wellness examination Expected: 07/29/2022, Expires: 09/28/2022 [facility] Work Phone: Comment on above: Expected: 07/29/2022, Expires: 3 Start: 05-15-2022 End: 07-15-2022 CBC W Auto Differential panel - Blood CBC + DIFF Lab Routine Screening for deficiency anemia Expected: 05/15/2022, Expires: 07/15/2022 [facility] Work Phone: Comment on above: Expected: 05/15/2022, Expires: 2 Start: 05-15-2022 End: 07-15-2022 Comprehensive metabolic 2000 panel - Serum or Plasma COMP METABOLIC PANEL Lab Routine Mixed hyperlipidemia Primary hypertension Diabetes beginning in adulthood (type 2/adult onset) ([facility]) Expected: 05/15/2022, Expires: 07/15/2022 [facility] Work Phone: Comment on above: Expected: 05/15/2022, Expires: 2 Start: 05-15-2022 End: 07-15-2022 Hemoglobin A1c in Blood HGB A1C Lab Routine Diabetes beginning in adulthood (type 2/adult onset) ([facility]) Expected: 05/15/2022, Expires: 07/15/2022 [facility] Work Phone: Comment on above: Expected: 05/15/2022, Expires: 2 Start: 05-15-2022 End: 07-15-2022 Lipid 1996 panel - Serum or Plasma LIPID PANEL BASIC Lab Routine Mixed hyperlipidemia Expected: 05/15/2022, Expires: 07/15/2022 [facility] Work Phone: Comment on above: Expected: 05/15/2022, Expires: 2 Start: 05-15-2022 End: 07-15-2022 Thyrotropin [Units/volume] in Serum or Plasma TSH BLD Lab Routine Anxiety Expected: 05/15/2022, Expires: 07/15/2022 [facility] Work Phone: Comment on above: Expected: 05/15/2022, Expires: 2 Start: 05-09-2022 Influenza vaccination INFLUENZA (#1) [facility] Start: 12-23-2021 COVID-19 VACCINE (3 - Booster for Moderna series) COVID-19 VACCINE (3 - Booster for Moderna series) [facility] Start: 09-19-2021 COVID-19 (3 - Booster for Moderna series) COVID-19 (3 - Booster for Moderna series) [facility] Start: 09-19-2021 COVID-19 VACCINE (3 - Booster for Moderna series) COVID-19 VACCINE (3 - Booster for Moderna series) [facility] Start: 09-19-2021 COVID-19 VACCINE (3 - Moderna series) COVID-19 VACCINE (3 - Moderna series) [facility] Start: 09-16-2020 DIABETES SCREEN DIABETES SCREEN [facility] Start: 09-16-2020 Diabetes Screening Diabetes Screening [facility] Start: 08-06-2018 End: 08-06-2018 Radex spine lumbosacral minimum 4 views XR LUMBAR 4VWS FLEX/EX [facility] Work Phone: Start: 08-06-2018 End: 08-06-2018 Appointment Appointment [facility] Work Phone: Start: 2015 Pneumococcal Vaccine: 50+ (1 of 1 - PCV) Pneumococcal Vaccine: 50+ (1 of 1 - PCV) [facility] Start: 2015 SHINGRIX VACCINE (1 of 2) SHINGRIX VACCINE (1 of 2) [facility] Start: 08-04-2011 HPV TESTING HPV TESTING [facility] Start: 08-04-2011 PAP TESTING PAP TESTING [facility] Start: 08-04-2011 Screening for malignant neoplasm of cervix [facility] Start: 2010 COLOGUARD (FIT-DNA) COLOGUARD (FIT-DNA) [facility] Start: 2010 Colonoscopy COLONOSCOPY [facility] Start: 2010 COLORECTAL CANCER SCREENING COLORECTAL CANCER SCREENING [facility] Start: [address] COLONOGRAPHY [facility] Start: 2010 FECAL OCCULT BLOOD FECAL OCCULT BLOOD [facility] Start: 2010 Lipid panel Lipid Screening [facility] Start: 2010 LIPID SCREEN LIPID SCREEN [facility] Start: 2010 Screening for malignant neoplasm of colon [facility] Start: 2010 SIGMOIDOSCOPY SIGMOIDOSCOPY [facility] Start: 08-22-2007 Mammography MAMMOGRAM [facility] Start: 06-19-1986 Microscopic observation [Identifier] in Cervix by Cyto stain Pap Smear [facility] Start: 02-25-1984 Hepatitis B Vaccine (1 of 3 - 19+ 3-dose series) Hepatitis B Vaccine (1 of 3 - + 3-dose series) [facility] Start: 02-25-1984 Urine microalbumin profile [facility] Start: 1983 ANNUAL PCP TEAM CHRONIC DISEASE VISIT ANNUAL PCP TEAM CHRONIC DISEASE VISIT [facility] Start: 1983 BP CONTROLLED (<130/80) BP CONTROLLED (<130/80) [facility] Start: 1983 Hepatitis B surface antibody level LDL CHOLESTEROL [facility] Start: 1983 HEPATITIS C SCREENING HEPATITIS C SCREENING [facility] Start: 1983 Hepatitis C screening Hepatitis C Screening [facility] Start: 1983 HIV SCREENING HIV SCREENING [facility] Start: 1983 HIV screening HIV Screening [facility] Start: 1981 MenB (1 of 2 - MenB 2-Dose Series Bexsero) MenB (1 of 2 - MenB 2-Dose Series Bexsero) [facility] Start: 1977 Adult depression screening assessment DEPRESSION SCREENING [facility] Start: 1975 3 comp foot exam completed DIABETIC FOOT EXAM [facility] Start: 1975 Diabetic foot examination Diabetic Foot Exam [facility] Start: 1975 Glaucoma screening Dilated Retinal Exam [facility] Start: 1975 Hepatitis B screening URINE ALBUMIN:CREATININE RATIO [facility] Start: 1975 Hepatitis C antibody, confirmatory test DILATED RETINAL EXAM [facility] Start: 02-25-1972 Tetanus Diphtheria and Pertussis Vaccines (1 - Tdap) Tetanus Diphtheria and Pertussis Vaccines (1 - Tdap) [facility] Start: 1971 PNEUMOCOCCAL (1 - PCV) PNEUMOCOCCAL (1 - PCV) [facility] Start: 1971 Pneumococcal vaccination [facility] Start: 1970 Hemoglobin A1c measurement HbA1C [facility] Start: 1970 Hemoglobin A1c/Hemoglobin.total in Blood HBA1C [facility] Start: 1966 MMR (1 of 1 - Standard series) MMR (1 of 1 - Standard series) [facility] Start: 1966 Varicella (1 of 2 - 2-dose childhood series) Varicella (1 of 2 - 2-dose childhood series) [facility] Start: 1965 HEPATITIS B (1 of 3 - 3-dose series) HEPATITIS B (1 of 3 - 3-dose series) [facility] Start: 1965 Hepatitis B Vaccine (1 of 3 - 3-dose series) Hepatitis B Vaccine (1 of 3 - 3-dose series) [facility] Patient Education ED Bronchitis, No Antibiotic (Adult) [facility] Work Phone: Patient referral [facility] Work Phone: [facility] Immunizations Immunization Date Immunization Notes Care Provider Fa jaleel 06-17-2023 influenza, injectabl e, quadrivalent, preservative free Hood Medina MD Work Phone: [facility] 06-17-2023 influenza virus vaccine, unspecified formulation Hood Medina MD Work Phone: [facility] 05-31-2022 influenza, injectabl e, quadrivalent, preservative free Hood Medina MD Work Phone: [facility] 07-25-2021 COVID-19 vaccine, fu ll dose (MODERNA) Hood Medina MD Work Phone: [facility] 07-25-2021 influenza nasal, unspecified formulation Hood Medina MD Work Phone: [facility] 07-25-2021 influenza, injectabl e, quadrivalent, preservative free Hood Medina MD Work Phone: [facility] 06-07-2021 COVID-19 vaccine, fu ll dose (MODERNA) Hood Medina MD Work Phone: [facility] No information available. Oliverio Zuniga [facility] Work Phone: Payers Date Payer Category Payer Self-pay [id number] 2019 Private Health Insurance [id number] 2019 Unknown MMO MMO [employer] [id number] 2019-Present [phone] [address] [place] [address] PPO [id number] 2019 Unknown [id number] 2015 Unknown [id number] 2013 Unknown [facility] [id number] Unknown [employer] [id number] Unknown [id number] Social History Date Type Detail Facility Start: 04-12-2021 End: 11-05-2022 Assertion Unknown if ever smoked [facility] [place] [facility] Work Phone: Start: 03-11-2020 None [facility] Start: 03-11-2020 Spouse/ Significant Other [facility] Start: 03-11-2020 Non-smoker [facility] Start: 1965 Sex Assigned At Female [facility] Start: 03-11-2020 End: 05-15-2022 Tobacco smoking status NHIS Never smoked tobacco [facility] Start: 03-11-2020 End: 05-14-2022 Alcohol intake Current non-drinker of alcohol (finding) [facility] Start: 1965 Sex Assigned At Not on file [facility] Start: 03-11-2020 End: 05-15-2022 Tobacco use and exposure Smokeless tobacco non-user [facility] Work Phone: Start: 05-15-2022 End: 08-11-2024 Alcohol intake Current drinker of alcohol (finding) [facility] Start: 05-15-2022 History SDOH Alcohol Comment occassionally [facility] Start: 05-15-2022 Education 16 [facility] Start: 05-05-2022 End: 05-15-2022 Exposure to SARS-CoV-2 (event) Not sure [facility] Start: 01-01-2023 End: 02-23-2025 History of Social function [facility] Start: 01-01-2023 End: 02-23-2025 Tobacco use panel [facility] National Score (1-10 0), lower number is lower risk 64 [facility] Has the [employer] threatened to shut off services in your home in past 12Mo No [facility] Do you belong to any clubs or organizations such as druze groups, unions, [facility] or athletic groups, or school groups? Yes [facility] Are you now , , , , never or living with a partner? [facility] How often to you hav e a drink containing alcohol? 2-4 times a month [facility] How many standard dr inks containing alcohol do you have on a typical day? 1 or 2 [facility] How often do you hav e 6 or more drinks on 1 occasion? Never [facility] Do you feel stress - tense, restless, nervous, or anxious, or unable to sleep at night because your mind is troubled all the time - these days [OSQ] To some extent [facility] (I/We) worried wheth er (my/our) food would run out before (I/we) got money to buy more. Never true [facility] Start: 09-16-2024 Gender identity Identifies as female gender (finding) [facility] Mental Status Date Assessment Result Facility 11-05-2022 Cognitive function Voice/Name [facility] Work Phone: Clinical Notes 03-06-2022 to 02-23-2025 Hood Medina MD - 02/23/2025 11:48 AM Joleen Bryan LPN - 02/23/2025 11:02 AM EDTTelephone Encounter - Chichi Zheng LPN - 12/27/2024 2:05 PM EDT Note Date & Type Note Facility 02-23-2025 Note HNO ID: [id number] Author: HOOD MEDINA MD Service: ? Author Type: Physician Type: Progress Notes Filed: 02/23/2025 11:48 Note Text: Subjective Mel Comer is a 59-year-old female with a history of HTN, presenting for management of back pain and medication refills. 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 - Scheduled for an MRI on Friday. - Experiences nocturnal numbness. - Believes stress contributes to the pain. - Taking Tylenol for pain management; cautious about dosage due to concerns about liver health. Hypertension: - Taking lisinopril-hydrochlorothiazide 20 mg/25 mg, 2 tablets every morning. - Discontinued amlodipine due to hypotension and fatigue; last BP reading was 100/60 mmHg. - Medication refills sent to [facility]. Review of Systems GENERAL: No weight loss, malaise, or fevers. HEENT: Negative for frequent or significant headaches, no changes in vision or hearing, no epistaxis or other nasal problems. NECK: Negative for lumps, goiter, pain, and significant neck swelling. RESPIRATORY: Negative for cough, dyspnea, or shortness of breath. CARDIOVASCULAR: Negative for chest pain, leg swelling, CHF, or palpitations. GI: No nausea, vomiting, diarrhea, heartburn, abdominal pain, hematochezia, or melena. GENITOURINARY: No history of dysuria, frequency, or incontinence. MUSCULOSKELETAL: Positive for back pain; negative for joint pain, swelling, or myalgia. SKIN: Negative for lesions, rash, or itching. PSYCH: Negative for anxiety or depression. HEMATOLOGY/LYMPHOLOGY: No bleeding concerns. NEURO: Positive for numbness; negative for headaches, syncope, paralysis, seizures, or tremors. ENDOCRINE: No history of polydipsia, increased thirst, or other endocrine symptoms. PAST SURGICAL HISTORY Procedure Laterality Date BACK SURGERY HX 2006 CHOLECYSTECTOMY 09/08/2002 LIG/TRNSXJ FLP TUBE ABDL/VAG APPR UNI/BI LIGATE FALLOPIAN TUBE PAST SURGICAL HISTORY OF ear tube placement PAST MEDICAL HISTORY Diagnosis Date Anxiety state Cervical dysplasia HTN (hypertension) PMH - PAST MEDICAL HISTORY OF fibrocystic breasts Trigeminal neuralgia FAMILY HISTORY Problem Relation Age of Onset Hypertension Mother Colon Cancer Mother Breast Cancer Maternal Grandmother Cancer Paternal Grandfather lung Diabetes Maternal Uncle x 2 Social History Tobacco Use Smoking status: Never Smokeless tobacco: Never Vaping Use Vaping status: Never Used Substance Use Topics Alcohol use: Yes Comment: occassionally Drug use: No ALLERGIES Allergen Reactions Mold Unknown Pollen Extracts Unknown MEDICATIONS: ALPRAZolam (XANAX) 0.5 mg tablet Take 1 tablet by mouth three times a day as needed for anxiety for up to 90 days. amitriptyline (ELAVIL) 50 mg tablet Take 1 tablet by mouth daily at bedtime. SUTAB 1.479-0.188- 0.225 gram tab Take 1 tablet by mouth. tiZANidine (ZANAFLEX) 4 mg tablet Take 4 mg by mouth three times a day as needed. EPINEPHrine (EPIPEN) 0.3 mg/0.3 mL auto-injector Epinephrine Active 0.3 MG IJ NEEDED March 11, 2020 5:23pm HYDROcodone-acetaminophen (NORCO) 5-325 mg per tablet take 1/2 to 1 tablet by mouth twice a day if needed for pain lisinopril-hydroCHLOROthiazide (ZESTORETIC) 20-12.5 mg per tablet Take 2 tablets by mouth once daily. Allergies, past surgical history, family history and past medical history were reviewed per this encounter. Medications were reviewed and verified. 08/11/2024 02/16/2025 INTAKE PAIN ASSESSMENT Are you having pain associated with your visit today? No No If pain assessment is 0, no action needed. If pain assessment is positive, please see assessment and plain. Objective Labs: - Liver function tests: Mildly elevated enzymes (no date provided) BP 132/82 (BP Site: Left Arm, BP Position: Sitting, BP Cuff Size: Regular Adult) Pulse 80 Temp 36.1 ?C (96.9 ?F) (Temporal) Resp 18 Ht 160 cm (5' 3) Wt 64.9 kg (143 lb) LMP (LMP Unknown) SpO2 99% BMI 25.33 kg/m? Physical Exam GENERAL: NAD, alert and oriented. SKIN: Unremarkable, no rash or skin lesions. HEAD: Normocephalic. EYES: PERRLA, EOMI, conjunctiva clear. EARS: External ears normal, canals clear, TM's normal. NOSE/SINUSES: Nares normal. Septum midline. OROPHARYNX: Lips, mucosa, and tongue normal, good dentition. No oral lesions noted. NECK: Supple, no lymphadenopathy, normal thyroid, no carotid bruits. LUNGS: Clear to auscultation bilaterally, no wheezes/rhonchi/rales. HEART: Regular rate and rhythm, no murmurs. No ectopy. EXTREMITIES: Normal, no deformities, no skin discoloration, no edema. NEURO: Awake, alert and oriented x3, cranial nerves II-XII grossly intact, normal gait, no involuntary motions. Procedures Assessment and Plan 1. Essential (primary) hypertension (I10) - Blood pressure readings are stable. - Refill for lisinopril-hydroch (more content not included)... [facility] 02-23-2025 History of Present illness Narrative Subjective Mel Comer is a 59-year-old female with a history of HTN, presenting for management of back pain and medication refills. 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 - Scheduled for an MRI on Friday. - Experiences nocturnal numbness. - Believes stress contributes to the pain. - Taking Tylenol for pain management; cautious about dosage due to concerns about liver health. Hypertension: - Taking lisinopril-hydrochlorothiazide 20 mg/25 mg, 2 tablets every morning. - Discontinued amlodipine due to hypotension and fatigue; last BP reading was 100/60 mmHg. - Medication refills sent to [facility]. Review of Systems GENERAL: No weight loss, malaise, or fevers. HEENT: Negative for frequent or significant headaches, no changes in vision or hearing, no epistaxis or other nasal problems. NECK: Negative for lumps, goiter, pain, and significant neck swelling. RESPIRATORY: Negative for cough, dyspnea, or shortness of breath. CARDIOVASCULAR: Negative for chest pain, leg swelling, CHF, or palpitations. GI: No nausea, vomiting, diarrhea, heartburn, abdominal pain, hematochezia, or melena. GENITOURINARY: No history of dysuria, frequency, or incontinence. MUSCULOSKELETAL: Positive for back pain; negative for joint pain, swelling, or myalgia. SKIN: Negative for lesions, rash, or itching. PSYCH: Negative for anxiety or depression. HEMATOLOGY/LYMPHOLOGY: No bleeding concerns. NEURO: Positive for numbness; negative for headaches, syncope, paralysis, seizures, or tremors. ENDOCRINE: No history of polydipsia, increased thirst, or other endocrine symptoms. PAST SURGICAL HISTORY Procedure Laterality Date BACK SURGERY HX 2006 CHOLECYSTECTOMY 09/08/2002 LIG/TRNSXJ FLP TUBE ABDL/VAG APPR UNI/BI LIGATE FALLOPIAN TUBE PAST SURGICAL HISTORY OF ear tube placement PAST MEDICAL HISTORY Diagnosis Date Anxiety state Cervical dysplasia HTN (hypertension) PMH - PAST MEDICAL HISTORY OF fibrocystic breasts Trigeminal neuralgia FAMILY HISTORY Problem Relation Age of Onset Hypertension Mother Colon Cancer Mother Breast Cancer Maternal Grandmother Cancer Paternal Grandfather lung Diabetes Maternal Uncle x 2 Social History Tobacco Use Smoking status: Never Smokeless tobacco: Never Vaping Use Vaping status: Never Used Substance Use Topics Alcohol use: Yes Comment: occassionally Drug use: No ALLERGIES Allergen Reactions Mold Unknown Pollen Extracts Unknown MEDICATIONS: ALPRAZolam (XANAX) 0.5 mg tablet Take 1 tablet by mouth three times a day as needed for anxiety for up to 90 days. amitriptyline (ELAVIL) 50 mg tablet Take 1 tablet by mouth daily at bedtime. SUTAB 1.479-0.188- 0.225 gram tab Take 1 tablet by mouth. tiZANidine (ZANAFLEX) 4 mg tablet Take 4 mg by mouth three times a day as needed. EPINEPHrine (EPIPEN) 0.3 mg/0.3 mL auto-injector Epinephrine Active 0.3 MG IJ NEEDED March 11, 2020 5:23pm HYDROcodone-acetaminophen (NORCO) 5-325 mg per tablet take 1/2 to 1 tablet by mouth twice a day if needed for pain lisinopril-hydroCHLOROthiazide (ZESTORETIC) 20-12.5 mg per tablet Take 2 tablets by mouth once daily. Allergies, past surgical history, family history and past medical history were reviewed per this encounter. Medications were reviewed and verified. 08/11/2024 02/16/2025 INTAKE PAIN ASSESSMENT Are you having pain associated with your visit today? No No If pain assessment is 0, no action needed. If pain assessment is positive, please see assessment and plain. Objective Labs: - Liver function tests: Mildly elevated enzymes (no date provided) BP 132/82 (BP Site: Left Arm, BP Position: Sitting, BP Cuff Size: Regular Adult) Pulse 80 Temp 36.1 C (96.9 F) (Temporal) Resp 18 Ht 160 cm (5' 3) Wt 64.9 kg (143 lb) LMP (LMP Unknown) SpO2 99% BMI 25.33 kg/m Physical Exam GENERAL: NAD, alert and oriented. SKIN: Unremarkable, no rash or skin lesions. HEAD: Normocephalic. EYES: PERRLA, EOMI, conjunctiva clear. EARS: External ears normal, canals clear, TM's normal. NOSE/SINUSES: Nares normal. Septum midline. OROPHARYNX: Lips, mucosa, and tongue normal, good dentition. No oral lesions noted. NECK: Supple, no lymphadenopathy, normal thyroid, no carotid bruits. LUNGS: Clear to auscultation bilaterally, no wheezes/rhonchi/rales. HEART: Regular rate and rhythm, no murmurs. No ectopy. EXTREMITIES: Normal, no deformities, no skin discoloration, no edema. NEURO: Awake, alert and oriented x3, cranial nerves II-XII grossly intact, normal gait, no involuntary motions. Procedures Assessment and Plan 1. Essential (primary) hypertension (I10) - Blood pressure readings are stable. - Refill for lisinopril-hydrochlorothiazide, 2 tablets every morning, sent to [facility]. - Patient discontinued amlodipine due to hypotensive episodes; medication has been on hold for several years. 2. Chronic pain syndrome (G89.4) - Experiencing significant back pain with associated numbness; MRI scheduled for Friday to further evaluate. - Under management by paint roller covermaker. - Discussed potential impact of stress on pain levels. - Advised to limit acetaminophen intake to no more than 2-3 grams per day to prevent hepatotoxicity. 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 Patient/authorized public utilities sales representative agreed to proceed Patient is in office for 6 month exam. Patient has no current complaints or concerns. Patient states she has not been taking her amlodipine. Joleen Ulloa LPN February 23, 2025 11:11 AM documented in this encounter [facility] 02-23-2025 Note HNO ID: [id number] Author: JOLEEN ULLOA LPN Service: ? Author Type: LICENSED NURSE Type: Progress Notes Filed: 02/23/2025 11:48 Note Text: Patient is in office for 6 month exam. Patient has no current complaints or concerns. Patient states she has not been taking her amlodipine. Joleen Ulola LPN February 23, 2025 11:11 AM [facility] 12-27-2024 Telephone encounter Note Patient called requesting the following refill. Requested Prescriptions Pending Prescriptions Disp Refills ALPRAZolam (XANAX) 0.5 mg tablet 90 tablet 2 Sig: Take 1 tablet by mouth three times a day as needed for anxiety for up to 90 days. Patient last appointment: 08/31/2024 Next appointment 02/23/2025 Patient Phone numbers: [phone] (home) Request is for script(s) to be escript to [facility]. Chichi Zheng LPN [facility] 12-27-2024 Miscellaneous Notes Patient called requesting the following refill. Requested Prescriptions Pending Prescriptions Disp Refills ALPRAZolam (XANAX) 0.5 mg tablet 90 tablet 2 Sig: Take 1 tablet by mouth three times a day as needed for anxiety for up to 90 days. Patient last appointment: 08/31/2024 Next appointment 02/23/2025 Patient Phone numbers: [phone] (home) Request is for script(s) to be escript to [facility]. Chichi Zheng LPN documented in this encounter [facility] 09-13-2024 Telephone encounter Note Last Office Visit: 08-11-2024 Next Scheduled Office Visit: 02-23-2025 Requested Prescriptions Pending Prescriptions Disp Refills ALPRAZolam (XANAX) 0.5 mg tablet 30 tablet 2 Sig: Take 1 tablet by mouth every 8 hours as needed for up to 30 days. Joleen Ulloa LPN September 13, 2024 12:36 PM [facility] 09-13-2024 Miscellaneous Notes Last Office Visit: 08-11-2024 Next Scheduled Office Visit: 02-23-2025 Requested Prescriptions Pending Prescriptions Disp Refills ALPRAZolam (XANAX) 0.5 mg tablet 30 tablet 2 Sig: Take 1 tablet by mouth every 8 hours as needed for up to 30 days. Joleen Ulloa LPN September 13, 2024 12:36 PM documented in this encounter [facility] 08-11-2024 Note HNO ID: [id number] Author: HOOD MEDINA MD Service: ? Author Type: Physician Type: Progress Notes Filed: 08/11/2024 15:11 Note Text: Subjective Heide Comer is a 59 year old female. Heide presents today for her annual wellness visit. Additionally she follows up for multiple medical problems. See list. Her chronic medical problems are stable. Her blood pressure is under good control on her current regimen. Mood and anxiety been stable. She has not been sleeping well on amitriptyline 25 mg. Review of Systems Constitutional: Negative. HENT: Negative. Eyes: Negative. Respiratory: Negative. Cardiovascular: Negative. Gastrointestinal: Negative. Endocrine: Negative. Genitourinary: Negative. Musculoskeletal: Negative. Skin: Negative. Allergic/Immunologic: Negative. Neurological: Negative. Hematological: Negative. Psychiatric/Behavioral: Negative. PAST SURGICAL HISTORY Procedure Laterality Date BACK SURGERY HX 2006 CHOLECYSTECTOMY 09/08/2002 LIG/TRNSXJ FLP TUBE ABDL/VAG APPR UNI/BI LIGATE FALLOPIAN TUBE PAST SURGICAL HISTORY OF ear tube placement PAST MEDICAL HISTORY Diagnosis Date Anxiety state Cervical dysplasia HTN (hypertension) PMH - PAST MEDICAL HISTORY OF fibrocystic breasts Trigeminal neuralgia FAMILY HISTORY Problem Relation Age of Onset Hypertension Mother Colon Cancer Mother Breast Cancer Maternal Grandmother Cancer Paternal Grandfather lung Diabetes Maternal Uncle x 2 Social History Tobacco Use Smoking status: Never Smokeless tobacco: Never Vaping Use Vaping status: Never Used Substance Use Topics Alcohol use: Yes Comment: occassionally Drug use: No ALLERGIES Allergen Reactions Mold Unknown Pollen Extracts Unknown MEDICATIONS: ALPRAZolam (XANAX) 0.5 mg tablet Take 1 tablet by mouth three times a day as needed for up to 90 days. SUTAB 1.479-0.188- 0.225 gram tab Take 1 tablet by mouth. amLODIPine (NORVASC) 5 mg tablet Take 1 tablet by mouth once daily. lisinopril-hydroCHLOROthiazide (ZESTORETIC) 20-12.5 mg per tablet Take 2 tablets by mouth once daily. amitriptyline (ELAVIL) 25 mg tablet Take 25 mg by mouth daily at bedtime. tiZANidine (ZANAFLEX) 4 mg tablet Take 4 mg by mouth three times a day as needed. EPINEPHrine (EPIPEN) 0.3 mg/0.3 mL auto-injector Epinephrine Active 0.3 MG IJ NEEDED 2 March 11, 2020 5:23pm HYDROcodone-acetaminophen (NORCO) 5-325 mg per tablet take 1/2 to 1 tablet by mouth twice a day if needed for pain Allergies, past surgical history, family history and past medical history were reviewed per this encounter. Medications were reviewed and verified. 02/18/2024 08/11/2024 INTAKE PAIN ASSESSMENT Are you having pain associated with your visit today? No No If pain assessment is 0, no action needed. If pain assessment is positive, please see assessment and plain. Objective BP 116/84 (BP Site: Left Arm, BP Position: Sitting, BP Cuff Size: Regular Adult) Pulse 84 Temp 36.4 ?C (97.6 ?F) (Temporal) Resp 18 Ht 160 cm (5' 3) Wt 66.2 kg (146 lb) LMP (LMP Unknown) SpO2 99% BMI 25.86 kg/m? Physical Exam Vitals reviewed. Constitutional: Appearance: Normal appearance. HENT: Head: Normocephalic and atraumatic. Nose: Nose normal. Eyes: Extraocular Movements: Extraocular movements intact. Pupils: Pupils are equal, round, and reactive to light. Cardiovascular: Rate and Rhythm: Normal rate and regular rhythm. Pulmonary: Effort: Pulmonary effort is normal. Breath sounds: Normal breath sounds. Abdominal: General: Bowel sounds are normal. Palpations: Abdomen is soft. Musculoskeletal: General: Normal range of motion. Cervical back: Normal range of motion and neck supple. Skin: General: Skin is warm and dry. Capillary Refill: Capillary refill takes less than 2 seconds. Neurological: General: No focal deficit present. Mental Status: She is alert and oriented to person, place, and time. Mental status is at baseline. Psychiatric: Mood and Affect: Mood normal. Behavior: Behavior normal. Procedures Assessment and Plan Encounter Diagnosis ICD-10-CM 1. Wellness examination Z00.00 2. Pure hypercholesterolemia E78.00 COMPREHENSIVE METABOLIC PANEL LIPID PANEL BASIC Improved and stable 3. Primary hypertension I10 COMPREHENSIVE METABOLIC PANEL Blood pressure well-controlled on current medication 4. Screening for deficiency anemia Z13.0 COMPLETE BLOOD COUNT AND DIFFERENTIAL 5. Primary insomnia F51.01 Increase amitriptyline to 50 mg at bedtime. 6. Anxiety F41.9 Stable 7. Acquired hypothyroidism E03.9 THYROID STIMULATING HORMONE Recheck TSH All open preventative health maintenance topics discussed with patient in detail. This includes risks and benefits regarding vaccines, cancer screening, healthy life style, and diet. Continue present medications. Check labs as above. Monitor blood pressure regularly. Exercise as (more content not included)... [facility] 08-11-2024 History of Present illness Narrative Subjective Heide Comer is a 59 year old female. Heide presents today for her annual wellness visit. Additionally she follows up for multiple medical problems. See list. Her chronic medical problems are stable. Her blood pressure is under good control on her current regimen. Mood and anxiety been stable. She has not been sleeping well on amitriptyline 25 mg. Review of Systems Constitutional: Negative. HENT: Negative. Eyes: Negative. Respiratory: Negative. Cardiovascular: Negative. Gastrointestinal: Negative. Endocrine: Negative. Genitourinary: Negative. Musculoskeletal: Negative. Skin: Negative. Allergic/Immunologic: Negative. Neurological: Negative. Hematological: Negative. Psychiatric/Behavioral: Negative. PAST SURGICAL HISTORY Procedure Laterality Date BACK SURGERY HX 2006 CHOLECYSTECTOMY 09/08/2002 LIG/TRNSXJ FLP TUBE ABDL/VAG APPR UNI/BI LIGATE FALLOPIAN TUBE PAST SURGICAL HISTORY OF ear tube placement PAST MEDICAL HISTORY Diagnosis Date Anxiety state Cervical dysplasia HTN (hypertension) PMH - PAST MEDICAL HISTORY OF fibrocystic breasts Trigeminal neuralgia FAMILY HISTORY Problem Relation Age of Onset Hypertension Mother Colon Cancer Mother Breast Cancer Maternal Grandmother Cancer Paternal Grandfather lung Diabetes Maternal Uncle x 2 Social History Tobacco Use Smoking status: Never Smokeless tobacco: Never Vaping Use Vaping status: Never Used Substance Use Topics Alcohol use: Yes Comment: occassionally Drug use: No ALLERGIES Allergen Reactions Mold Unknown Pollen Extracts Unknown MEDICATIONS: ALPRAZolam (XANAX) 0.5 mg tablet Take 1 tablet by mouth three times a day as needed for up to 90 days. SUTAB 1.479-0.188- 0.225 gram tab Take 1 tablet by mouth. amLODIPine (NORVASC) 5 mg tablet Take 1 tablet by mouth once daily. lisinopril-hydroCHLOROthiazide (ZESTORETIC) 20-12.5 mg per tablet Take 2 tablets by mouth once daily. amitriptyline (ELAVIL) 25 mg tablet Take 25 mg by mouth daily at bedtime. tiZANidine (ZANAFLEX) 4 mg tablet Take 4 mg by mouth three times a day as needed. EPINEPHrine (EPIPEN) 0.3 mg/0.3 mL auto-injector Epinephrine Active 0.3 MG IJ NEEDED March 11, 2020 5:23pm HYDROcodone-acetaminophen (NORCO) 5-325 mg per tablet take 1/2 to 1 tablet by mouth twice a day if needed for pain Allergies, past surgical history, family history and past medical history were reviewed per this encounter. Medications were reviewed and verified. 02/18/2024 08/11/2024 INTAKE PAIN ASSESSMENT Are you having pain associated with your visit today? No No If pain assessment is 0, no action needed. If pain assessment is positive, please see assessment and plain. Objective BP 116/84 (BP Site: Left Arm, BP Position: Sitting, BP Cuff Size: Regular Adult) Pulse 84 Temp 36.4 C (97.6 F) (Temporal) Resp 18 Ht 160 cm (5' 3) Wt 66.2 kg (146 lb) LMP (LMP Unknown) SpO2 99% BMI 25.86 kg/m Physical Exam Vitals reviewed. Constitutional: Appearance: Normal appearance. HENT: Head: Normocephalic and atraumatic. Nose: Nose normal. Eyes: Extraocular Movements: Extraocular movements intact. Pupils: Pupils are equal, round, and reactive to light. Cardiovascular: Rate and Rhythm: Normal rate and regular rhythm. Pulmonary: Effort: Pulmonary effort is normal. Breath sounds: Normal breath sounds. Abdominal: General: Bowel sounds are normal. Palpations: Abdomen is soft. Musculoskeletal: General: Normal range of motion. Cervical back: Normal range of motion and neck supple. Skin: General: Skin is warm and dry. Capillary Refill: Capillary refill takes less than 2 seconds. Neurological: General: No focal deficit present. Mental Status: She is alert and oriented to person, place, and time. Mental status is at baseline. Psychiatric: Mood and Affect: Mood normal. Behavior: Behavior normal. Procedures Assessment and Plan Encounter Diagnosis ICD-10-CM 1. Wellness examination Z00.00 2. Pure hypercholesterolemia E78.00 COMPREHENSIVE METABOLIC PANEL LIPID PANEL BASIC Improved and stable 3. Primary hypertension I10 COMPREHENSIVE METABOLIC PANEL Blood pressure well-controlled on current medication 4. Screening for deficiency anemia Z13.0 COMPLETE BLOOD COUNT AND DIFFERENTIAL 5. Primary insomnia F51.01 Increase amitriptyline to 50 mg at bedtime. 6. Anxiety F41.9 Stable 7. Acquired hypothyroidism E03.9 THYROID STIMULATING HORMONE Recheck TSH All open preventative health maintenance topics discussed with patient in detail. This includes risks and benefits regarding vaccines, cancer screening, healthy life style, and diet. Continue present medications. Check labs as above. Monitor blood pressure regularly. Exercise as tolerated. Maintain good diet. Follow-up in 6 months. Hood Medina MD August 11, 2024 DUE HEALTH MAINTENANCE Hepatitis C Screening declined HIV Screening declined BP Controlled (<130/80) DTaP,Tdap,Td Vaccine(1 - Tdap) declined Lipid Screening Cervical Cancer Screening [facility] Vaccine(1 of 2) March scheduled Diabetes Screening Influenza Vaccine(1) [facility] Covid-19 Vaccine( season) declined Mammogram Screening [facility] Patient has been taking Amlodipine as needed for BP No refills needed. Joleen Ulloa LPN August 11, 2024 1:48 PM documented in this encounter [facility] 08-11-2024 Note HNO ID: [id number] Author: JOLEEN ULLOA LPN Service: ? Author Type: LICENSED NURSE Type: Progress Notes Filed: 08/11/2024 15:11 Note Text: DUE HEALTH MAINTENANCE Hepatitis C Screening declined HIV Screening declined BP Controlled (<130/80) DTaP,Tdap,Td Vaccine(1 - Tdap) declined Lipid Screening Cervical Cancer Screening [facility] Sh[employer]rix Vaccine(1 of 2) March scheduled Diabetes Screening Influenza Vaccine(1) [facility] Covid-19 Vaccine( season) declined Mammogram Screening [facility] Patient has been taking Amlodipine as needed for BP No refills needed. Joleen Ulloa LPN August 11, 2024 1:48 PM [facility] 06-14-2024 Telephone encounter Note Patient called requesting the following refill. Requested Prescriptions Pending Prescriptions Disp Refills ALPRAZolam (XANAX) 0.5 mg tablet 90 tablet 2 Sig: Take 1 tablet by mouth three times a day as needed for up to 90 days. Patient last appointment: 02/18/2024 Next appointment 08/11/2024 Patient Phone numbers: [phone] (home) Request is for script(s) to be escript to [facility] pharmacy. Chichi Zheng LPN [facility] 06-14-2024 Miscellaneous Notes Patient called requesting the following refill. Requested Prescriptions Pending Prescriptions Disp Refills ALPRAZolam (XANAX) 0.5 mg tablet 90 tablet 2 Sig: Take 1 tablet by mouth three times a day as needed for up to 90 days. Patient last appointment: 02/18/2024 Next appointment 08/11/2024 Patient Phone numbers: [phone] (home) Request is for script(s) to be escript to [facility] pharmacy. Chichi Zheng LPN documented in this encounter [facility] 03-16-2024 Telephone encounter Note Last Office Visit: 02-18-2024 Next Scheduled Office Visit: 08-11-2024 Requested Prescriptions Pending Prescriptions Disp Refills ALPRAZolam (XANAX) 0.5 mg tablet 90 tablet 2 Sig: Take 1 tablet by mouth three times a day as needed for up to 90 days. Joleen Ulloa LPN March 16, 2024 12:33 PM [facility] 03-16-2024 Miscellaneous Notes Last Office Visit: 02-18-2024 Next Scheduled Office Visit: 08-11-2024 Requested Prescriptions Pending Prescriptions Disp Refills ALPRAZolam (XANAX) 0.5 mg tablet 90 tablet 2 Sig: Take 1 tablet by mouth three times a day as needed for up to 90 days. Joleen Ulloa LPN March 16, 2024 12:33 PM documented in this encounter [facility] 02-18-2024 History of Present illness Narrative Subjective Heide Comer is a 58 year old female.The patient presents today for follow-up for multiple medical problems. See list. Her chronic medical problems have been stable. Her blood pressure is under good control. She has no new complaints today. She is feeling well. Review of Systems Constitutional: Negative. HENT: Negative. Eyes: Negative. Respiratory: Negative. Cardiovascular: Negative. Gastrointestinal: Negative. Endocrine: Negative. Genitourinary: Negative. Musculoskeletal: Negative. Skin: Negative. Allergic/Immunologic: Negative. Neurological: Negative. Hematological: Negative. Psychiatric/Behavioral: Negative. PAST SURGICAL HISTORY Procedure Laterality Date BACK SURGERY HX 2006 CHOLECYSTECTOMY 09/08/2002 LIG/TRNSXJ FLP TUBE ABDL/VAG APPR UNI/BI LIGATE FALLOPIAN TUBE PAST SURGICAL HISTORY OF ear tube placement PAST MEDICAL HISTORY Diagnosis Date Anxiety state Cervical dysplasia HTN (hypertension) PMH - PAST MEDICAL HISTORY OF fibrocystic breasts Trigeminal neuralgia FAMILY HISTORY Problem Relation Age of Onset Hypertension Mother Colon Cancer Mother Breast Cancer Maternal Grandmother Cancer Paternal Grandfather lung Diabetes Maternal Uncle x 2 Social History Tobacco Use Smoking status: Never Smokeless tobacco: Never Vaping Use Vaping Use: Never used Substance Use Topics Alcohol use: Yes Comment: occassionally Drug use: No ALLERGIES Allergen Reactions Mold Unknown Pollen Extracts Unknown MEDICATIONS: SUTAB 1.479-0.188- 0.225 gram tab Take 1 tablet by mouth. lisinopril-hydroCHLOROthiazide (ZESTORETIC) 20-12.5 mg per tablet Take 2 tablets by mouth once daily. ALPRAZolam (XANAX) 0.5 mg tablet Take 1 tablet by mouth three times a day as needed for up to 90 days. amitriptyline (ELAVIL) 25 mg tablet Take 25 mg by mouth daily at bedtime. tiZANidine (ZANAFLEX) 4 mg tablet Take 4 mg by mouth three times a day as needed. EPINEPHrine (EPIPEN) 0.3 mg/0.3 mL auto-injector Epinephrine Active 0.3 MG IJ NEEDED March 11, 2020 5:23pm HYDROcodone-acetaminophen (NORCO) 5-325 mg per tablet take 1/2 to 1 tablet by mouth twice a day if needed for pain amLODIPine (NORVASC) 5 mg tablet Take 1 tablet by mouth once daily. Allergies, past surgical history, family history and past medical history were reviewed per this encounter. Medications were reviewed and verified. Objective BP 136/82 (BP Site: Left Arm, BP Position: Sitting, BP Cuff Size: Regular Adult) Pulse 72 Temp 36.4 C (97.6 F) (Temporal) Resp 18 Ht 160 cm (5' 3) Wt 64 kg (141 lb) LMP (LMP Unknown) SpO2 100% BMI 24.98 kg/m Physical Exam Vitals reviewed. Constitutional: Appearance: Normal appearance. HENT: Head: Normocephalic and atraumatic. Nose: Nose normal. Eyes: Extraocular Movements: Extraocular movements intact. Pupils: Pupils are equal, round, and reactive to light. Cardiovascular: Rate and Rhythm: Normal rate and regular rhythm. Pulmonary: Effort: Pulmonary effort is normal. Breath sounds: Normal breath sounds. Abdominal: General: Bowel sounds are normal. Palpations: Abdomen is soft. Musculoskeletal: General: Normal range of motion. Cervical back: Normal range of motion and neck supple. Skin: General: Skin is warm and dry. Capillary Refill: Capillary refill takes less than 2 seconds. Neurological: General: No focal deficit present. Mental Status: She is alert and oriented to person, place, and time. Mental status is at baseline. Psychiatric: Mood and Affect: Mood normal. Behavior: Behavior normal. Assessment and Plan Encounter Diagnosis ICD-10-CM 1. Primary hypertension I10 COMPREHENSIVE METABOLIC PANEL 2. Pure hypercholesterolemia E78.00 LIPID PANEL BASIC COMPREHENSIVE METABOLIC PANEL 3. Screening for deficiency anemia Z13.0 COMPLETE BLOOD COUNT AND DIFFERENTIAL Continue present medications. Check labs as above. Monitor blood pressure regularly. Exercise as tolerated. Maintain good diet. Follow-up in 6 months. Hood Medina MD Patient in the office today for a 6 month exam. Patient has no current complaints or concerns. Joleen Ulloa LPN February 18, 2024 1:07 PM documented in this encounter [facility] 01-29-2024 Telephone encounter Note Patient called requesting the following refill. Requested Prescriptions Pending Prescriptions Disp Refills lisinopril-hydroCHLOROthiazide (ZESTORETIC) 20-12.5 mg per tablet 180 tablet 3 Sig: Take 2 tablets by mouth once daily. Patient last appointment: 09/17/2023 Next appointment 02/18/2024 Patient Phone numbers: [phone] (home) Request is for script(s) to be escript to [facility] pharmacy. Chichi Zheng LPN [facility] 01-29-2024 Miscellaneous Notes Patient called requesting the following refill. Requested Prescriptions Pending Prescriptions Disp Refills lisinopril-hydroCHLOROthiazide (ZESTORETIC) 20-12.5 mg per tablet 180 tablet 3 Sig: Take 2 tablets by mouth once daily. Patient last appointment: 09/17/2023 Next appointment 02/18/2024 Patient Phone numbers: [phone] (home) Request is for script(s) to be escript to [facility] pharmacy. Chichi Zheng LPN documented in this encounter [facility] 07-09-2023 History of Present illness Narrative Subjective Heide Comer is a 58 year old female. Heide presents today for her annual wellness visit Review of Systems Constitutional: Negative. HENT: Negative. Eyes: Negative. Respiratory: Negative. Cardiovascular: Negative. Gastrointestinal: Negative. Endocrine: Negative. Genitourinary: Negative. Musculoskeletal: Negative. Skin: Negative. Allergic/Immunologic: Negative. Neurological: Negative. Hematological: Negative. Psychiatric/Behavioral: Negative. PAST SURGICAL HISTORY Procedure Laterality Date BACK SURGERY HX 2006 CHOLECYSTECTOMY 09/08/2002 LIG/TRNSXJ FLP TUBE ABDL/VAG APPR UNI/BI LIGATE FALLOPIAN TUBE PAST SURGICAL HISTORY OF ear tube placement PAST MEDICAL HISTORY Diagnosis Date Anxiety state Cervical dysplasia HTN (hypertension) PMH - PAST MEDICAL HISTORY OF fibrocystic breasts Trigeminal neuralgia FAMILY HISTORY Problem Relation Age of Onset Hypertension Mother Colon Cancer Mother Breast Cancer Maternal Grandmother Cancer Paternal Grandfather lung Diabetes Maternal Uncle x 2 Social History Tobacco Use Smoking status: Never Smokeless tobacco: Never Vaping Use Vaping Use: Never used Substance Use Topics Alcohol use: Yes Comment: occassionally Drug use: No ALLERGIES Allergen Reactions Mold Unknown Pollen Extracts Other: See Comments MEDICATIONS: lisinopril-hydroCHLOROthiazide (ZESTORETIC) 20-12.5 mg per tablet take 2 tablets by mouth once daily EPINEPHrine (EPIPEN) 0.3 mg/0.3 mL auto-injector Epinephrine Active 0.3 MG IJ NEEDED March 11, 2020 5:23pm amLODIPine (NORVASC) 2.5 mg tablet Take 1 tablet by mouth once daily. HYDROcodone-acetaminophen (NORCO) 5-325 mg per tablet take 1/2 to 1 tablet by mouth twice a day if needed for pain ALPRAZolam (XANAX) 0.5 mg tablet Take 1 tablet by mouth three times a day as needed for up to 90 days. methylPREDNISolone (MEDROL DOSE-PACK) 4 mg Dose-Pack (Patient not taking: Reported on 07/09/2023) cyclobenzaprine (FLEXERIL) 10 mg tablet Take 10 mg by mouth three times daily as needed. (Patient not taking: Reported on 07/09/2023) amitriptyline (ELAVIL) 25 mg tablet Take 25 mg by mouth daily at bedtime. (Patient not taking: Reported on 07/09/2023) Allergies, past surgical history, family history and past medical history were reviewed per this encounter. Medications were reviewed and verified. Objective BP 138/88 (BP Site: Left Arm, BP Position: Sitting, BP Cuff Size: Large Adult) Pulse 66 Temp 36.7 C (98 F) (Temporal) Resp 16 Ht 160 cm (5' 3) Wt 61.7 kg (136 lb) LMP (LMP Unknown) SpO2 100% BMI 24.09 kg/m Physical Exam Vitals reviewed. Constitutional: Appearance: Normal appearance. HENT: Head: Normocephalic and atraumatic. Nose: Nose normal. Eyes: Extraocular Movements: Extraocular movements intact. Pupils: Pupils are equal, round, and reactive to light. Cardiovascular: Rate and Rhythm: Normal rate and regular rhythm. Pulmonary: Effort: Pulmonary effort is normal. Breath sounds: Normal breath sounds. Abdominal: General: Bowel sounds are normal. Palpations: Abdomen is soft. Musculoskeletal: General: Normal range of motion. Cervical back: Normal range of motion and neck supple. Skin: General: Skin is warm and dry. Capillary Refill: Capillary refill takes less than 2 seconds. Neurological: General: No focal deficit present. Mental Status: She is alert and oriented to person, place, and time. Mental status is at baseline. Psychiatric: Mood and Affect: Mood normal. Behavior: Behavior normal. Assessment and Plan Encounter Diagnosis ICD-10-CM 1. Wellness examination Z00.00 2. Anxiety F41.9 ALPRAZolam (XANAX) 0.5 mg tablet 3. Hypertension, essential I10 COMP METABOLIC PANEL 4. Pure hypercholesterolemia E78.00 COMP METABOLIC PANEL LIPID PANEL BASIC 5. Gastroesophageal reflux disease with esophagitis without hemorrhage K21.00 6. Acquired hypothyroidism E03.9 7. Screening for deficiency anemia Z13.0 CBC + DIFF [facility] health maintenance topics discussed with patient in detail. This includes risks and benefits regarding vaccines, cancer screening, healthy life style, and diet. Hood Medina MD Patient in the office today for an annual Wellness Exam. [employer] HE[employer] MAINTENANCE Hepatitis B Vaccine(1 of 3 - 3-dose series) HbA1C Pneumococcal Vaccine(1 - PCV) Urine Albumin:Creatinine Ratio Dilated Retinal Exam has not had Diabetic Foot Exam has not had LDL Cholesterol Hepatitis C Screening HIV Screening BP Controlled (<130/80) DTaP,Tdap,Td Vaccine(1 - Tdap) Colorectal Cancer Screening Dr. Aranda next colonoscopy is next Pap Testing [facility] going today HPV Testing Shingrix Vaccine(1 of 2) Influenza Vaccine(1) Ilia Peng she works there Covid-19 Vaccine( season) Mammogram Screening [facility] going today Loni Pearson LPN July 09, 2023 1:18 PM documented in this encounter [facility] 06-03-2023 Note HNO ID: [id number] Author: Karen Berkowitz APRN.[employer] Service: ? Author Type: Nurse Practitioner Type: Progress Notes Filed: 06/03/2023 5:19 PM Note Text: CC: Patient presents with: Flu Like Symptoms: St, SOB, fever and legs aches-exposed to COVID x 1 day HPI: Heide Comer is a 58 year old female who presents to the office with complaint of head congestion, cough, nonproductive, sore throat, and fever for the past day. Symptoms are staying the same. Associated symptoms includes body aches. Denies nausea, vomiting , and diarrhea. Treatments tried include nothing so far. with no relief of symptoms. Sick contacts: unknown. History of asthma, frequent episodes of bronchitis, chronic bronchitis, bronchiectasis or COPD: No Smoker: No Seasonal/environmental allergies: No The ROS is otherwise negative. The patient's pmh, medications, allergies, and past visits are reviewed. PHYSICAL EXAM: BP 160/98 Pulse 92 Temp 36.8 ?C (98.2 ?F) (Tympanic) Resp 18 Wt 62 kg (136 lb 9.6 oz) LMP (LMP Unknown) SpO2 99% BMI 24.20 kg/m? General appearance: alert, cooperative, pleasant, in no acute distress Head: Normocephalic Eyes: EOM's intact, conjunctiva pink and moist, no icterus, sclera white, non-injected Ears: Right ear: External ear/canal- Normal, TM - clear with good landmarks. Left ear: External ear/canal- Normal, TM - clear with good landmarks Oropharynx:moist without lesions, No erythema, exudates or tonsillar hypertrophy. Heart: Negative. RRR without obvious murmur, gallop, or rubs. No ectopy. Lungs: clear to auscultation, without rales or wheeze, good air exchange PAST MEDICAL HISTORY Diagnosis Date Anxiety state Cervical dysplasia HTN (hypertension) PMH - PAST MEDICAL HISTORY OF fibrocystic breasts Trigeminal neuralgia PAST SURGICAL HISTORY Procedure Laterality Date BACK SURGERY HX 2006 CHOLECYSTECTOMY 09/08/2002 LIG/TRNSXJ FLP TUBE ABDL/VAG APPR UNI/BI LIGATE FALLOPIAN TUBE PAST SURGICAL HISTORY OF ear tube placement ALLERGIES Mold and Pollen Extracts MEDICATIONS ALPRAZolam (XANAX) 0.5 mg tablet Take 1 tablet by mouth three times daily as needed for up to 90 days. lisinopril-hydroCHLOROthiazide (ZESTORETIC) 20-12.5 mg per tablet take 2 tablets by mouth once daily EPINEPHrine (EPIPEN) 0.3 mg/0.3 mL auto-injector Epinephrine Active 0.3 MG IJ NEEDED March 11, 2020 5:23pm amLODIPine (NORVASC) 2.5 mg tablet Take 1 tablet by mouth once daily. cyclobenzaprine (FLEXERIL) 10 mg tablet Take 10 mg by mouth three times daily as needed. amitriptyline (ELAVIL) 25 mg tablet Take 25 mg by mouth daily at bedtime. HYDROcodone-acetaminophen (NORCO) 5-325 mg per tablet take 1/2 to 1 tablet by mouth twice a day if needed for pain methylPREDNISolone (MEDROL DOSE-PACK) 4 mg Dose-Pack FAMILY HISTORY Problem Relation Age of Onset Hypertension Mother Colon Cancer Mother Breast Cancer Maternal Grandmother Cancer Paternal Grandfather lung Diabetes Maternal Uncle x 2 Social History Tobacco Use Smoking status: Never Smokeless tobacco: Never Vaping Use Vaping Use: Never used Substance Use Topics Alcohol use: Yes Comment: occassionally Drug use: No ASSESSMENT/PLAN: 1. URI, acute - ICD9: 465.9, ICD10: J06.9 - COVID AND INFLUENZA A/B AND RSV NAAT, ROUTINE OTC medication for symptom managment. Potential red flag symptoms discussed with the patient. Reviewed appropriate action plan to take if red flag symptoms occur. Patient agreeable to treatment plan. Karen Berkowitz APRN.[facility] 05-30-2023 Miscellaneous Notes Heide was seen for manual therapy. She reports low back pain. She had a back surgery a few years ago and sitting causes her pain. She also gets neck pain .she rates her pain 2/10 PNMT to Scalenes, SCM, sub occipitals, trapezius, splenius capitus, splenius cervicis, levator scapulae. Gluteus medius and minimus, multifidi, QL, erector spinae, latissimus, trapezius, rhomboids, Heide reports feeling better after treatment. She rates her pain 0/10Continue treatment for next session. Isale Monique LMT documented in this encounter [facility] 05-30-2023 Progress note Formatting of t his note might be different from the original. Heide was seen for manual therapy. She reports low back pain. She had a back surgery a few years ago and sitting causes her pain. She also gets neck pain .she rates her pain 2/10 PNMT to Scalenes, SCM, sub occipitals, trapezius, splenius capitus, splenius cervicis, levator scapulae. Gluteus medius and minimus, multifidi, QL, erector spinae, latissimus, trapezius, rhomboids, Heide reports feeling better after treatment. She rates her pain 0/10Continue treatment for next session. Isael Monique LMT [facility] 04-17-2023 Miscellaneous Notes Patient called requesting the following refill. Requested Prescriptions Pending Prescriptions Disp Refills ALPRAZolam (XANAX) 0.5 mg tablet 90 tablet 2 Sig: Take 1 tablet by mouth three times daily as needed for up to 90 days. Patient last appointment: 01/01/2023 Next appointment 07/07/2023 Patient Phone numbers: [phone] (home) Request is for script(s) to be escript to [facility] pharmacy. Chichi Zheng LPN documented in this encounter [facility] 02-04-2023 Miscellaneous Notes Pharmacy [employer] message requesting the following refill. Requested Prescriptions Pending Prescriptions Disp Refills lisinopril-hydroCHLOROthiazide (ZESTORETIC) 20-12.5 mg per tablet [Pharmacy Med Name: LISINOPRIL-HCTZ 20-12.5 MG TAB] 180 tablet 3 Sig: take 2 tablets by mouth once daily Patient last appointment: 01/01/2023 Next appointment 07/07/2023 Patient Phone numbers: [phone] (home) Request is for script(s) to be escript to [facility] pharmacy. Chichi Zheng LPN documented in this encounter [facility] 01-16-2023 Miscellaneous Notes Pharmacy [employer] message requesting the following refill. Requested Prescriptions Pending Prescriptions Disp Refills ALPRAZolam (XANAX) 0.5 mg tablet [Pharmacy Med Name: ALPRAZOLAM 0.5 MG TABLET] 90 tablet 2 Sig: take 1 tablet by mouth three times a day if needed for anxiety Patient last appointment: 01/01/2023 Next appointment 07/07/2023 Patient Phone numbers: [phone] (home) Request is for script(s) to be escript to [facility] pharmacy. Chichi Zheng LPN documented in this encounter [facility] 01-01-2023 History of Present illness Narrative This note was created using [employer]. Subjective Heide Comer is a 57 year old female. Heide presents today for follow-up for her hypertension. Her blood pressure is improved and within normal limits on addition of amlodipine to her previous regimen. She is doing well. She has no new complaints today. Review of Systems Constitutional: Negative. HENT: Negative. Eyes: Negative. Respiratory: Negative. Cardiovascular: Negative. Gastrointestinal: Negative. Endocrine: Negative. Genitourinary: Negative. Musculoskeletal: Negative. Skin: Negative. Allergic/Immunologic: Negative. Neurological: Negative. Hematological: Negative. Psychiatric/Behavioral: Negative. Objective BP 132/86 (BP Site: Right Arm, BP Position: Sitting, BP Cuff Size: Regular Adult) Pulse 89 Temp 36.1 C (97 F) (Temporal) Resp 18 Ht 160 cm (5' 3) Wt 62.3 kg (137 lb 4 oz) LMP (LMP Unknown) SpO2 98% BMI 24.31 kg/m Physical Exam Vitals reviewed. Constitutional: Appearance: Normal appearance. HENT: Head: Normocephalic and atraumatic. Nose: Nose normal. Eyes: Extraocular Movements: Extraocular movements intact. Pupils: Pupils are equal, round, and reactive to light. Cardiovascular: Rate and Rhythm: Normal rate and regular rhythm. Pulmonary: Effort: Pulmonary effort is normal. Breath sounds: Normal breath sounds. Abdominal: General: Bowel sounds are normal. Palpations: Abdomen is soft. Musculoskeletal: General: Normal range of motion. Cervical back: Normal range of motion and neck supple. Skin: General: Skin is warm and dry. Capillary Refill: Capillary refill takes less than 2 seconds. Neurological: General: No focal deficit present. Mental Status: She is alert and oriented to person, place, and time. Mental status is at baseline. Psychiatric: Mood and Affect: Mood normal. Behavior: Behavior normal. Assessment and Plan Encounter Diagnosis ICD-10-CM 1. Hypertension, essential I10 2. Anxiety F41.9 3. Major depressive disorder with single episode, in remission ([facility]) F32.5 Continue present medications. Monitor blood pressure regularly. Reduce salt. Reduce stress. Increase exercise as tolerated. Hood Medina MD Patient is in office for follow up for hypertension. Patient was seen in office 11-13-2022 and prescribed: Amlodipine 2.5 mg daily in addition to lisinopril-hydrochlorothiazide 20-12.5 take 2 tablets daily Patient states BP has been running about 130s/80s. Patient states medication is effective. No refills needed today. Loni Pearson LPN January 01, 2023 1:14 PM documented in this encounter [facility] 11-13-2022 History of Present illness Narrative This note was created using [employer]. Subjective Heide Comer is a 57 year old female. Heide presents today for follow-up for multiple medical problems. See list. Her chronic medical problems have been stable. Her blood pressure she reports has been running higher than normal. And more than half her readings are elevated. Review of Systems Constitutional: Negative. HENT: Negative. Eyes: Negative. Respiratory: Negative. Cardiovascular: Negative. Gastrointestinal: Negative. Endocrine: Negative. Genitourinary: Negative. Musculoskeletal: Negative. Skin: Negative. Allergic/Immunologic: Negative. Neurological: Negative. Hematological: Negative. Psychiatric/Behavioral: Negative. Objective BP 136/88 (BP Site: Left Arm, BP Position: Sitting, BP Cuff Size: Regular Adult) Pulse 76 Temp 36.4 C (97.6 F) (Temporal) Resp 18 Ht 160 cm (5' 3) Wt 63.7 kg (140 lb 6.4 oz) LMP (LMP Unknown) SpO2 98% BMI 24.87 kg/m Physical Exam Vitals reviewed. Constitutional: Appearance: Normal appearance. HENT: Head: Normocephalic and atraumatic. Nose: Nose normal. Eyes: Extraocular Movements: Extraocular movements intact. Pupils: Pupils are equal, round, and reactive to light. Cardiovascular: Rate and Rhythm: Normal rate and regular rhythm. Pulmonary: Effort: Pulmonary effort is normal. Breath sounds: Normal breath sounds. Abdominal: General: Bowel sounds are normal. Palpations: Abdomen is soft. Musculoskeletal: General: Normal range of motion. Cervical back: Normal range of motion and neck supple. Skin: General: Skin is warm and dry. Capillary Refill: Capillary refill takes less than 2 seconds. Neurological: General: No focal deficit present. Mental Status: She is alert and oriented to person, place, and time. Mental status is at baseline. Psychiatric: Mood and Affect: Mood normal. Behavior: Behavior normal. Assessment and Plan Heide was seen today for 6 month exam. Diagnoses and all orders for this visit: Hypertension, essential Mixed hyperlipidemia Anxiety Other orders - amLODIPine (NORVASC) 2.5 mg tablet; Take 1 tablet by mouth once daily. Continue present medications. Add amlodipine daily. Monitor blood pressure. Follow-up in 1 month. Patient is in office today for 6 month exam. Patient requesting for Diabetes to be removed from chart. Patient does not have diagnosis. Patient stated that her blood pressure has been running higher some days around 160's/90-100's. Patient stated some days it is normal, but others increased. No refills needed at this time. Joleen Ulloa LPN November 13, 2022 10:46 AM documented in this encounter [facility] 11-07-2022 Miscellaneous Notes Pharmacy [employer] message requesting the following refill. Requested Prescriptions Pending Prescriptions Disp Refills ALPRAZolam (XANAX) 0.5 mg tablet [Pharmacy Med Name: ALPRAZOLAM 0.5 MG TABLET] 90 tablet 1 Sig: TAKE 1 TABLET BY MOUTH THREE TIMES A DAY NEEDED FOR ANXIETY Patient last appointment: 05/15/2022 Next appointment 11/13/2022 Patient Phone numbers: [phone] (home) Request is for script(s) to be escript to [facility] pharmacy. Chichi Zheng LPN documented in this encounter [facility] 08-14-2022 Miscellaneous Notes Patient called requesting the following refill. Requested Prescriptions Pending Prescriptions Disp Refills ALPRAZolam (XANAX) 0.5 mg tablet 90 tablet 2 Sig: Take 1 tablet by mouth three times daily as needed for anxiety for up to 90 days. Patient last appointment: 07/29/2022 Patient Phone numbers: [phone] (home) Request is for script(s) to be escript to pharmacy. Kenya Canada LPN documented in this encounter [facility] 07-29-2022 Miscellaneous Notes Orders faxed as requested Joleen Ulloa LPN July 29, 2022 12:04 PM Orders signed. Please fax a requested. Last office visit 05-15-2022 Yovana Richardson phoned office stated that patient needs new lab orders faxed to them. Please sign attached lab orders from wellness exam. Joleen Ulloa LPN July 29, 2022 11:21 AM documented in this encounter [facility] 05-15-2022 History of Present illness Narrative This note was created using [employer]. Subjective Heide Comer is a 57 year old female. Review of Systems Constitutional: Negative. HENT: Negative. Eyes: Negative. Respiratory: Negative. Cardiovascular: Negative. Gastrointestinal: Negative. Endocrine: Negative. Genitourinary: Negative. Musculoskeletal: Negative. Skin: Negative. Allergic/Immunologic: Negative. Neurological: Negative. Hematological: Negative. Psychiatric/Behavioral: Negative. Objective BP 120/76 (BP Site: Left Arm, BP Cuff Size: Large Adult) Pulse 100 Temp 36.1 C (96.9 F) (Temporal) Resp 14 Ht 160 cm (5' 3) Wt 68.2 kg (150 lb 6.4 oz) LMP 07/15/2006 SpO2 97% BMI 26.64 kg/m Physical Exam Vitals reviewed. Constitutional: Appearance: Normal appearance. HENT: Head: Normocephalic and atraumatic. Nose: Nose normal. Eyes: Extraocular Movements: Extraocular movements intact. Pupils: Pupils are equal, round, and reactive to light. Cardiovascular: Rate and Rhythm: Normal rate and regular rhythm. Pulmonary: Effort: Pulmonary effort is normal. Breath sounds: Normal breath sounds. Abdominal: General: Bowel sounds are normal. Palpations: Abdomen is soft. Musculoskeletal: General: Normal range of motion. Cervical back: Normal range of motion and neck supple. Skin: General: Skin is warm and dry. Capillary Refill: Capillary refill takes less than 2 seconds. Neurological: General: No focal deficit present. Mental Status: She is alert and oriented to person, place, and time. Mental status is at baseline. Psychiatric: Mood and Affect: Mood normal. Behavior: Behavior normal. Assessment and Plan Heide was seen today for yearly exam. Diagnoses and all orders for this visit: Wellness examination Anxiety - ALPRAZolam (XANAX) 0.5 mg tablet; Take 1 tablet by mouth three times daily as needed for anxiety for up to 90 days. Mixed hyperlipidemia Acquired hypothyroidism Primary hypertension Gastroesophageal reflux disease with esophagitis without hemorrhage Other orders - sertraline (ZOLOFT) 100 mg tablet; Take 1 tablet by mouth once daily. documented in this encounter [facility] 05-15-2022 Nurse Note Pt declines skin check and breast exam today. Pt states she just had dermatology appointment and she has upcoming appointment with ob-radio communication coordinator documented in this encounter [facility] 05-07-2022 Miscellaneous Notes . Requested Prescriptions Pending Prescriptions Disp Refills ALPRAZolam (XANAX) 0.5 mg tablet 30 tablet 2 Sig: Take 1 tablet by mouth once daily for 90 days. Joleen Ulloa LPN May 07, 2022 4:23 PM documented in this encounter [facility] 03-06-2022 Miscellaneous Notes Patient has been identified by name and date of : Yes Pending Prescriptions Disp Refills ALPRAZOLAM 0.5 MG TABLET 30 tablet 2 Sig: Take 1 tablet by mouth every 8 hours as needed for up to 30 days. RACHELL Class: C-IV SANA: No RX INSTRUCTIONS: Patient aware RX will be sent to pharmacy. No need to nofity patient. Controlled medication - must be call in. Margareth Martinez LPN documented in this encounter [facility] Evaluation note No assessment inform ation available [facility] Work Phone: Evaluation note Diagnosis Anxiety- Primary Anxiety state, unspecified [facility] [place]* Diagnosis Anxiety- Primary Anxiety state, unspecified [facility] [place] [facility] Diagnosis Wellness examination- Primary Anxiety Anxiety state, unspecified Mixed hyperlipidemia Acquired hypothyroidism Unspecified hypothyroidism Primary hypertension Unspecified essential hypertension Gastroesophageal reflux disease with esophagitis without hemorrhage Diabetes beginning in adulthood (type 2/adult onset) (HCC) Screening for deficiency anemia Screening for other and unspecified deficiency anemia [facility] [place] [facility]* Diagnosis Wellness examination- Primary documented [facility] [place] [facility]* Diagnosis Anxiety Anxiety state, unspecified [facility] [place] [facility] Diagnosis Anxiety Anxiety state, unspecified [facility] [place] [facility]* Diagnosis Hypertension, essential- Primary Unspecified essential hypertension Mixed hyperlipidemia Anxiety Anxiety state, unspecified [facility] [place] [facility]* Diagnosis Hypertension, essential- Primary Unspecified essential hypertension Anxiety Anxiety state, unspecified Major depressive disorder with single episode, in remission (HCC) [facility] [place] [facility]* Diagnosis Anxiety Anxiety state, unspecified [facility] [place] [facility]* Diagnosis LOS WITHIN PROCEDURE CODE [V9000 (ICD-9-CM)]- Primary [facility] [place] [facility] Diagnosis Wellness examination- Primary Anxiety Anxiety state, unspecified Hypertension, essential Unspecified essential hypertension Pure hypercholesterolemia Gastroesophageal reflux disease with esophagitis without hemorrhage Acquired hypothyroidism Unspecified hypothyroidism Screening for deficiency anemia Screening for other and unspecified deficiency anemia documented in this encounter [facility] note* Diagnosis Primary hypertension- Primary Unspecified essential hypertension Pure hypercholesterolemia Screening for deficiency anemia Screening for other and unspecified deficiency anemia documented in this encounter [facility] note* Diagnosis Anxiety Anxiety state, unspecified documented in this encounter [facility] note* Diagnosis Wellness examination- Primary Pure hypercholesterolemia Primary hypertension Unspecified essential hypertension Screening for deficiency anemia Screening for other and unspecified deficiency anemia Primary insomnia Persistent disorder of initiating or maintaining sleep Anxiety Anxiety state, unspecified Acquired hypothyroidism Unspecified hypothyroidism documented in this encounter [facility] note* Diagnosis Anxiety Anxiety state, unspecified documented in this encounter [facility] note* Diagnosis Essential (primary) hypertension Unspecified essential hypertension Chronic pain syndrome documented in this encounter [facility] Summary Purpose Family History No Family History Records FoundNo Family History Records FoundThere may be information available, but it has not been provided by the sender.No Family History Records FoundNo Family History Records FoundNo Family History Records FoundNo Family History Records FoundNo Family History Records Found Advance Directives No Advanced Directives Records Found Advance Directive Response Recorded Date/ Time Living Will No April 12, 2021 12:10pm Power of Pool Coordinator No April 12 12:10pm Documents on File Type Date Recorded 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 Assessments There may be information available, but it has not been provided by the sender. Review of System There may be information available, but it has not been provided by the sender. History of Present Illness There may be information available, but it has not been provided by the sender. Chief Complaint and Reason for Visit Chief Complaint SPINAL STENOSIS/SPON DYLOSIS-LUMBAR. RX HERE Chief Complaint CHEST PAIN Additional Source Comments INFORMATION SOURCE (unrecogn ized section and content) DATE CREATED AUTHOR 03/03/2018 [facility] DATE CREATED AUTHOR AUTHOR'S ORGANIZ ATION 03/03/2018 [facility] DATE CREATED AUTHOR AUTHOR'S ORGANIZ ATION 05/30/2021 [facility] ([place]) DATE CREATED AUTHOR AUTHOR'S ORGANIZ ATION 06/01/2023 [facility] DATE CREATED AUTHOR AUTHOR'S ORGANIZ ATION 07/17/2023 [facility] DATE CREATED AUTHOR AUTHOR'S ORGANIZ ATION 02/08/2025 [facility] DATE CREATED AUTHOR AUTHOR'S ORGANIZ ATION 02/26/2025 [facility] Reason for Visit (unrecogniz ed section and content) Reason For Visit Description Consult - 2nd opinion Preliminary reason f or visit data, not yet signed by the author as of lower back pain Reason Onset Date Comments Refill Request 03/06/2022 Reason Onset Date Comments Refill Request 05/07/2022 Reason Comments Yearly Exam Cpe no concerns Reason Comments Orders Reason Onset Date Comments Refill Request 08/14/2022 Reason Comments Refill Request Reason Comments 6 Month Exam Reason Comments Hypertension Reason Onset Date Comments Refill Request 04/17/2023 Reason Comments Wellness Reason Onset Date Comments Refill Request 09/07/2023 Reason Onset Date Comments Refill Request 01/29/2024 Reason Onset Date Comments Refill Request 03/16/2024 Reason Onset Date Comments Refill Request 06/14/2024 Reason Onset Date Comments Refill Request 09/13/2024 Reason Onset Date Comments Refill Request 12/27/2024 Goals (unrecognized section and content) Goals may be documented in a n alternate sectionGoals may be documented in an alternate section Source Comments (unrecognize d section and content) In the event this informatio n is protected by the Federal Confidentiality of Alcohol and Drug Abuse Patient Records regulations: The Federal rules restrict any use of the information to criminally investigate or prosecute any alcohol or drug abuse patient.[facility] the event this information is protected by the Federal Confidentiality of Alcohol and Drug Abuse Patient Records regulations: The Federal rules restrict any use of the information to criminally investigate or prosecute any alcohol or drug abuse patient.[facility] the event this information is protected by the Federal Confidentiality of Alcohol and Drug Abuse Patient Records regulations: The Federal rules restrict any use of the information to criminally investigate or prosecute any alcohol or drug abuse patient.[facility] the event this information is protected by the Federal Confidentiality of Alcohol and Drug Abuse Patient Records regulations: The Federal rules restrict any use of the information to criminally investigate or prosecute any alcohol or drug abuse patient.[facility] the event this information is protected by the Federal Confidentiality of Alcohol and Drug Abuse Patient Records regulations: The Federal rules restrict any use of the information to criminally investigate or prosecute any alcohol or drug abuse patient.[facility] the event this information is protected by the Federal Confidentiality of Alcohol and Drug Abuse Patient Records regulations: The Federal rules restrict any use of the information to criminally investigate or prosecute any alcohol or drug abuse patient.[facility] the event this information is protected by the Federal Confidentiality of Alcohol and Drug Abuse Patient Records regulations: The Federal rules restrict any use of the information to criminally investigate or prosecute any alcohol or drug abuse patient.[facility] the event this information is protected by the Federal Confidentiality of Alcohol and Drug Abuse Patient Records regulations: The Federal rules restrict any use of the information to criminally investigate or prosecute any alcohol or drug abuse patient.[facility] the event this information is protected by the Federal Confidentiality of Alcohol and Drug Abuse Patient Records regulations: The Federal rules restrict any use of the information to criminally investigate or prosecute any alcohol or drug abuse patient.[facility] the event this information is protected by the Federal Confidentiality of Alcohol and Drug Abuse Patient Records regulations: The Federal rules restrict any use of the information to criminally investigate or prosecute any alcohol or drug abuse patient.[facility] the event this information is protected by the Federal Confidentiality of Alcohol and Drug Abuse Patient Records regulations: The Federal rules restrict any use of the information to criminally investigate or prosecute any alcohol or drug abuse patient.[facility] the event this information is protected by the Federal Confidentiality of Alcohol and Drug Abuse Patient Records regulations: The Federal rules restrict any use of the information to criminally investigate or prosecute any alcohol or drug abuse patient.[facility] the event this information is protected by the Federal Confidentiality of Alcohol and Drug Abuse Patient Records regulations: The Federal rules restrict any use of the information to criminally investigate or prosecute any alcohol or drug abuse patient.[facility] the event this information is protected by the Federal Confidentiality of Alcohol and Drug Abuse Patient Records regulations: The Federal rules restrict any use of the information to criminally investigate or prosecute any alcohol or drug abuse patient.[facility] the event this information is protected by the Federal Confidentiality of Alcohol and Drug Abuse Patient Records regulations: The Federal rules restrict any use of the information to criminally investigate or prosecute any alcohol or drug abuse patient.[facility] the event this information is protected by the Federal Confidentiality of Alcohol and Drug Abuse Patient Records regulations: The Federal rules restrict any use of the information to criminally investigate or prosecute any alcohol or drug abuse patient.[facility] Hospital[facility] the event this information is protected by the Federal Confidentiality of Alcohol and Drug Abuse Patient Records regulations: The Federal rules restrict any use of the information to criminally investigate or prosecute any alcohol or drug abuse patient.[facility] HospitalIn the event this information is protected by the Federal Confidentiality of Alcohol and Drug Abuse Patient Records regulations: The Federal rules restrict any use of the information to criminally investigate or prosecute any alcohol or drug abuse patient.[facility] HospitalIn the event this information is protected by the Federal Confidentiality of Alcohol and Drug Abuse Patient Records regulations: The Federal rules restrict any use of the information to criminally investigate or prosecute any alcohol or drug abuse patient.[facility] HospitalIn the event this information is protected by the Federal Confidentiality of Alcohol and Drug Abuse Patient Records regulations: The Federal rules restrict any use of the information to criminally investigate or prosecute any alcohol or drug abuse patient.[facility] HospitalIn the event this information is protected by the Federal Confidentiality of Alcohol and Drug Abuse Patient Records regulations: The Federal rules restrict any use of the information to criminally investigate or prosecute any alcohol or drug abuse patient.[facility] HospitalIn the event this information is protected by the Federal Confidentiality of Alcohol and Drug Abuse Patient Records regulations: The Federal rules restrict any use of the information to criminally investigate or prosecute any alcohol or drug abuse patient.[facility] HospitalIn the event this information is protected by the Federal Confidentiality of Alcohol and Drug Abuse Patient Records regulations: The Federal rules restrict any use of the information to criminally investigate or prosecute any alcohol or drug abuse patient.[facility]In the event this information is protected by the Federal Confidentiality of Alcohol and Drug Abuse Patient Records regulations: The Federal rules restrict any use of the information to criminally investigate or prosecute any alcohol or drug abuse patient.[facility] HospitalIn the event this information is protected by the Federal Confidentiality of Alcohol and Drug Abuse Patient Records regulations: The Federal rules restrict any use of the information to criminally investigate or prosecute any alcohol or drug abuse patient.[facility] Care Teams (unrecognized sec tion and content) Sample Paster Relationship Specialty Start Date End Date Hood Medina MD PCP - General 06/30/06 Sample Paster Relationship Specialty Start Date End Date Hood Medina MD PCP - General 06/30/06 Sample Paster Relationship Specialty Start Date End Date Hood Medina MD PCP - General 06/30/06 Sample Paster Relationship Specialty Start Date End Date Hood Medina MD PCP - General 06/30/06 Sample Paster Relationship Specialty Start Date End Date Hood Medina MD PCP - General 06/30/06 Team Status: Active Member Role Status Dates Dr. Hood Medina MD Family Provider Active Dr. Hood Medina MD Primary Care Provider Active Team Status: Inactive Member Role Status Dates Dr. Hood Medina MD Primary Care Prov ider, Attending Provider, Referring Provider Active Team Status: Inactive Member Role Status Dates Dr. Hood Medina MD Primary Care Provider Active Dr. Carlos Uribe DO Emergency Provider Active Sample Paster Relationship Specialty Start Date End Date Hood Medina MD PCP - General 06/30/06 Sample Paster Relationship Specialty Start Date End Date Hood Medina MD PCP - General 06/30/06 Sample Paster Relationship Specialty Start Date End Date Hood Medina MD PCP - General 06/30/06 Sample Paster Relationship Specialty Start Date End Date Hood Medina MD PCP - General 06/30/06 Sample Paster Relationship Specialty Start Date End Date Hood Medina MD PCP - General 06/30/06 Sample Paster Relationship Specialty Start Date [place] [address] PCP - General Pediatrics 05/30/23 Sample Paster Relationship Specialty Start Date End Date Hood Medina MD PCP - General 06/30/06 Sample Paster Relationship Specialty Start Date End Date Hood Medina MD [address] [place] [address] PCP - General Family Medicine 06/30/06 [address] [place] [address] COMPONENT LAB TECH 07/10/23 Jun Aranda MD [address] [place] [address] Gastroenterology 07/10/23 Sample Paster Relationship Specialty Start Date End Date Hood Medina MD [address] [place] [address] PCP - General Family Medicine 06/30/06 [facility] [address] [facility] [place] [address] Ortho/Prosthetic Aide 07/10/23 Jun Aranda MD [address] [place] [address] Gastroenterology 07/10/23 Sample Paster Relationship Specialty Start Date End Date Hood Medina MD [address] [place] [address] PCP - General Family Medicine 06/30/06 [facility] [address] [facility] [place] [address] Ortho/Prosthetic Aide 07/10/23 Jun Aranda MD [address] [place] [address] Gastroenterology 07/10/23 Sample Paster Relationship Specialty Start Date End Date Hood Medina MD [address] [place] [address] PCP - General Family Medicine 06/30/06 [facility] [address] [facility] [place] [address] Ortho/Prosthetic Aide 07/10/23 Jun Aranda MD [address] [place] [address] Gastroenterology 07/10/23 Sample Paster Relationship Specialty Start Date End Date Hood Medina MD [address] [place] [address] PCP - General Family Medicine 06/30/06 [facility] [address] [facility] [place] [address] Ortho/Prosthetic Aide 07/10/23 Jun Aranda MD [address] [place] [address] Gastroenterology 07/10/23 Sample Paster Relationship Specialty Start Date End Date Hood Medina MD [address] [place] [address] PCP - General Family Medicine 06/30/06 [facility] [address] [facility] [place] [address] Ortho/Prosthetic Aide 07/10/23 Jun Aranda MD [address] [place] [address] Gastroenterology 07/10/23 Sample Paster Relationship Specialty Start Date End Date Hood Medina MD [address] [place] [address] PCP - General Family Medicine 06/30/06 [facility] [address] [facility] [place] [address] Ortho/Prosthetic Aide 07/10/23 Jun Aranda MD [address] [place] [address] Gastroenterology 07/10/23 Sample Paster Relationship Specialty Start Date End Date Hood Medina MD [address] [place] [address] PCP - General Family Medicine 06/30/06 [facility] [address] [place] [address] Ortho/Prosthetic Aide 07/10/23 Jun Aranda MD [address] [facility] [address] [place], [place] [address] Gastroenterology 07/10/23 Sample Paster Relationship Specialty Start Date End Date Hood Medina MD [address] [place] [address] PCP - General Family [facility] 06/30/06 [facility] [address] [place] [address] Ortho/Prosthetic Aide 07/10/23 Jun Aranda MD [address] [facility] [address] [place], [place] [address] Gastroenterology 07/10/23 FOR RECORDS PERTAINING TO PATIENTS WHO ARE OR HAVE BEEN ENROLLED IN A CHEMICAL DEPENDENCY/SUBSTANCEABUSE PROGRAM, SOME INFORMATION MAY BE OMITTED. This clinical summary was aggregated from multiple sources. Caution should be exercised in using it in the provision of clinical care. This summary normalizes information from multiple sources, and as a consequence, information in this document may materially change the coding, format and clinical context of patient data. In addition, data may be omitted in some cases. CLINICAL DECISIONS SHOULD BE BASED ON THE PRIMARY CLINICAL RECORDS. [facility] provides no warranty or guarantee of the accuracy or completeness of information in this document.
--- NOTE | 2025-02-26 11:00 | MRI_ITS ---
PROCEDURE: SPINE LUMBAR (ROUTINE) 02/26/2025 REASON FOR EXAM: POSTLAMINECTOMY SYNDROME, NOT ELSEWHERE CLASSIFIED TECHNIQUE: SPINE LUMBAR (ROUTINE) COMPARISON: 10-30-2020 FINDINGS: Straightened lumbar lordotic curve denoting myospasm. The examined vertebrae bodies and posterior neural arches show no fracture or dislocation with preserve vertebral bodies height. Multilevel tiny marginal lipping of the lumbar vertebral end plates . Subchondral Modio II of L4-L5 vertebral end plates. Variable degrees of reduced bright T2 WI signal of the intervertebral discs denoting their desiccation with reduced L4-L5 disc height. T11-T12: T12-L1: There is no focal disc pathology, central canal stenosis or neural foraminal stenosis. L1-L2: a 1.5 mm central focal posterior disc protrusion indenting the theca. No neural foraminal stenosis. L2-L3: a diffuse disc bulge with a 19 x 7 mm left paracentral-left foraminal disc extrusion showing caudal and cranial inclination indenting the theca and encroaching upon both neural exit foramina inducing marked left and moderate right exiting nerve roots compression. L3-L4: a 3 mm diffuse disc bulge indenting the theca and encroaching upon both neural exit foramina inducing mild to moderate exiting nerve roots compression. L4-L5: a 4 mm diffuse disc bulge with posterior osteophytes indenting the theca and encroaching upon both neural exit foramina inducing moderate exiting nerve roots compression. L5-S1: a mild diffuse disc bulge with a 4.5 mm central and left paracentral focal posterior protrusion showing annular tear and indenting the theca and encroaching upon both neural exit foramina inducing mild to moderate exiting nerve roots compression. The lower thoracic spinal cord, conus medullaris, and cauda equina nerve roots are unremarkable. No marrow infiltrative lesions. Paravertebral soft tissue is unremarkable. No developmental canal stenosis. MRI/Spine Lumbar (Routine) IMPRESSION: IMPRESSION: Straightened lumbar lordotic curve denoting myospasm. No vertebral fracture or dislocation. L1-L2: a 1.5 mm central focal posterior disc protrusion. No neural foraminal st enosis. L2-L3: a diffuse disc bulge with a 19 x 7 mm left paracentral-left foraminal di sc extrusion showing caudal and cranial inclination encroaching upon both neural exit foramina inducing marked left and moderate right exiting nerve roots compression. L3-L4: a 3 mm diffuse disc bulge inducing mild to moderate exiting nerve roots compression. L4-L5: a 4 mm diffuse disc bulge with posterior osteophytes encroaching upon basilio th neural exit foramina inducing moderate exiting nerve roots compression. L5-S1: a mild diffuse disc bulge with a 4.5 mm central and left paracentral foc al posterior protrusion showing annular tear and encroaching upon both neural exit foramina inducing mild to moderate exiting ne rve roots compression. Reading [facility]
== END | disposition home or self-care (01) ==
PROVIDERS: PCP Family Medicine; Referring Provider Anesthesiology Pain Medicine; Visit Provider Anesthesiology Pain Medicine
DX: M96.1 Postlaminectomy syndrome, not elsewhere classified (principal)
CPT/HCPCS: 72148